=== PATIENT | male | born 1965 | race Caucasian/White ===

== ENCOUNTER 2020-07-08 22:27 | Emergency (ER) | payer MEDICAID, SELFPAY ==
--- NOTE | 2020-07-08 | XR_ITS ---
EXAMINATION: XR RIBS, RIGHT CLINICAL INFORMATION: Patient fell on right ribs. Pain. COMPARISON: Chest x-ray 10/03/2018 TECHNIQUE: Frontal view of chest 3 views of the right ribs were obtained. FINDINGS: Lungs are clear. No consolidation, pneumothorax, or pleural effusion. The cardiomediastinal silhouette and pulmonary vasculature are normal. Osseous structures are unremarkable. Ribs are intact. No fractures are identified. There are surgical clips in the upper abdomen IMPRESSION: No acute change of chest or right ribs.
[2020-07-08 22:33] VITALS: BP 153/81; PULSE 92; RESP 18; TEMP 37; O2SAT 95; BMI 38.2
--- NOTE | 2020-07-09 | CT_ITS ---
EXAMINATION: CT CHEST WITH CONTRAST CLINICAL INFORMATION: Right-sided pain. Trauma. COMPARISON: Radiographs from 07/08/2020. TECHNIQUE: Multidetector volumetric CT imaging of the chest was obtained after the administration of 85 mL of Omnipaque 350 intravenous contrast without immediate adverse reactions. Axial MIP volume rendering provided. Sagittal and coronal reformatted images were obtained. This CT examination was performed using dose optimization techniques as appropriate, variously including the following: *Automated exposure control *Adjustment of mA and/or kV according to patient size (this includes techniques or standardized protocols for targeted exams where dose is matched to indication/reason for exam; i.e. extremities or head) *Use of iterative reconstruction technique DLP: 1144 mGy-cm FINDINGS: LUNGS: The central airways are patent. Mild bronchial wall thickening noted. Minimal patchy opacities are seen at the lung bases. No pleural effusion or pneumothorax. No suspicious pulmonary nodules. MEDIASTINUM: Normal heart size. No pericardial effusion. No mediastinal lymphadenopathy. The thyroid gland is unremarkable. AXILLA: No lymphadenopathy. UPPER ABDOMEN: Manny-en-Y gastric bypass. OSSEOUS STRUCTURES: No acute or suspicious osseous abnormality. The ribs are intact. The sternum is intact. Vertebral body height and alignment is maintained. IMPRESSION: 1. No acute traumatic findings of the chest. 2. Bronchial wall thickening with patchy basilar opacities could be infectious or inflammatory.
--- NOTE | 2020-07-09 | CT_ITS ---
EXAMINATION: CT ABDOMEN AND PELVIS WITH CONTRAST CLINICAL INFORMATION: Right-sided pain. Trauma. COMPARISON: None TECHNIQUE: Multidetector volumetric images were obtained from the superior aspect of the liver through the pubic symphysis following administration 85 mL of Omnipaque 350 intravenous contrast. Sagittal and coronal reformatted images were obtained on the technologist's workstation. Oral contrast: No This CT examination was performed using dose optimization techniques as appropriate, variously including the following: *Automated exposure control *Adjustment of mA and/or kV according to patient size (this includes techniques or standardized protocols for targeted exams where dose is matched to indication/reason for exam; i.e. extremities or head) *Use of iterative reconstruction technique DLP: 1144 mGy-cm FINDINGS: LUNG BASES: The visualized lung bases are unremarkable. LIVER, GALLBLADDER, AND BILIARY TREE: The liver is normal in size, shape, and attenuation. No focal hepatic lesion. Mild intrahepatic and extrahepatic biliary ductal dilatation is present. Stones are seen in the gallbladder neck. No gallbladder wall thickening or pericholecystic fluid. PANCREAS: Fatty atrophy of the pancreatic parenchyma. No focal abnormality. SPLEEN: Unremarkable. ADRENAL GLANDS: Unremarkable. KIDNEYS AND URETERS: The kidneys are normal in size, shape, and attenuation. No hydronephrosis, hydroureter, or calculi seen. No perinephric stranding. BLADDER: Unremarkable. GASTROINTESTINAL TRACT: Status post Manny-en-Y gastric bypass. No obstruction. No dilated loops of bowel. Normal appendix. Fecalization of the distal ileum suggesting slow transit. No colonic wall thickening or inflammatory change. No free air. No free fluid. ABDOMINAL WALL: Fat-containing bilateral inguinal hernias. LYMPH NODES: Normal. VASCULAR: Normal caliber aorta with mild atherosclerotic calcification PELVIC VISCERA: The prostate and seminal vesicles are unremarkable. OSSEOUS STRUCTURES: No acute or suspicious osseous abnormality. Mild degenerative changes of the spine. IMPRESSION: Mild intrahepatic and extrahepatic biliary ductal dilatation, this appears chronic. Cholelithiasis. No acute traumatic findings.
--- NOTE | 2020-07-09 | ECG_ITS ---
Test Reason : FALL Blood Pressure : / mmHG Vent. Rate : 068 BPM Atrial Rate : 068 BPM P-R Int : 148 ms QRS Dur : 080 ms QT Int : 424 ms P-R-T Axes : 044 078 045 degrees QTc Int : 450 ms Normal sinus rhythm Normal ECG When compared with ECG of 03-JUN-2018 19:14, No significant change was found Referred By: Luan Gross Electronically Signed By:EVE MIRANDA MD
[2020-07-09 01:30] VITALS: BP 154/84; PULSE 80; RESP 24; O2SAT 96
--- NOTE | 2020-07-09 01:45 | ED.EXTPRO ---
HPI - Extremity Problem General Chief complaint: Extremity Injury, Upper Stated complaint: ABD INJ Time Seen by Provider: 07/09/20 01:28 Mode of arrival: ambulatory History of Present Illness HPI Narrative: patient right-sided chest wall pain. Patient states earlier today was working on a car and fell onto the right side. But some heating pad however has not been feeling better. Pain with palpation as well as deep breathing. Denies fevers or chills no recent illness. No syncope Onset (ago): hour(s) ( 12 hours) Location: right Severity scale (1-10): 7 Radiation: none Relieving factors: nothing Related Data Previous Rx's Medication Instructions Recorded tramadol 50 mg PO BID PRN #14 tab 07/09/20 Allergies Allergy/AdvReac Type Severity Reaction Status Date / Time ruvalcaba Allergy Severe WHEEZING Verified 07/09/20 02:21 AND THROAT SWELLING apple [Apple] Allergy Unknown UNKNOWN Verified 07/09/20 02:21 carrot [CARROT] Allergy Unknown ITCHING TO Verified 07/09/20 02:21 THROAT. peach [PEACH] Allergy Unknown UNKNOWN Verified 07/09/20 02:21 pear [Pear] Allergy Unknown UNKNOWN Verified 07/09/20 02:21 plum [PLUM] Allergy Unknown UNKNOWN Verified 07/09/20 02:21 sertraline Allergy Unknown Unknown Uncoded 07/09/20 02:21 Review of Systems Review of Systems: Constitutional : No Weight loss, No Fever, No Chills, No Night Sweats, No Fatigue, No Malaise ENT/Mouth : No Hearing loss, No Ear Pain, No Nasal Congestion, No Sinus Pain, No Hoarseness, No sore throat, No Rhinorrhea, No Swallowing Difficulty Eyes: No Eye Pain, No Swelling, No Redness, No Foreign Body, No Discharge, No Vision Changes Cardiovascular : right-sided Chest Pain, No SOB, No Dyspnea on Exertion, No Orthopnea, No Edema, No Palpitations Respiratory : No Cough, No Sputum, No Wheezing, No Smoke Exposure, No Dyspnea Gastrointestinal : No Nausea, No Vomiting, No Diarrhea, No Constipation, right upper abdominal Pain, No Hematochezia, No Melena Genitourinary : no irregular bleeding, No Dysuria, No Urinary Frequency, No Hematuria, No Urinary Incontinence, No Urgency, No Flank Pain, No Urinary Flow Changes, No Hesitancy Musculoskeletal : No joint pain, No Myalgias, No Joint Swelling Skin : No Skin Lesions, No rash Neuro : No Weakness, No Numbness, No Paresthesias, No Loss of Consciousness, No Dizziness, No Headache Psych : No Anxiety/Panic, No Depression, No SI/HI/AH/VH, No Social Issues, Heme/Lymph: No Bruising, No Bleeding,No Lymphadenopathy Endocrine : No Polyuria, No Polydipsia, No Temperature Intolerance [facility] Past Medical History Medical History (Updated 07/09/20 @ 04:34 by Luan Gross DO) Asthma Patient denies medical problems Surgical History (Updated 07/09/20 @ 04:27 by Luan Gross DO) No pertinent past surgical history Social History Social History Smoking Status: Never smoker Use of substances other than those prescribed or required for medical reasons: No Advance Directives: No Advance Directives Information Provided: No Physical Exam Vital Signs and I&O and Narrative: Vital Signs and I&O: Vital Signs Temp 98.6 F 07/08/20 22:33 Pulse 60 07/09/20 04:00 Resp 16 07/09/20 04:00 BP 141/77 H 07/09/20 04:00 Pulse Ox 95 07/09/20 04:00 Intake & Output 07/08/20 07/08/20 07/09/20 06:59 18:59 06:59 Intake Total 1000 / 1000 Balance 1000 / 1000 Weight 104.326 kg Intake: Intake, IV Amoun t 1000 / 1000 0.9 % Sodium C hloride 1,000 ml 1000 / 1000 @ 999 mls/hr I VCONT .Q1H1M [facility] Rx#:[id number] Body Mass Index 38.2 vital signs reviewed pulse ox interpreted by me 97% room air normal Appearance: Alert. Oriented X3. No acute distress. Eyes: Pupils equal, round and reactive to light. ENT: Pharynx normal. Neck: Normal inspection. Neck supple. No lymph nodes noted. No crepitus CVS: Normal heart rate and rhythm. Pulses normal. Normal S1 and S2. right-sided chest wall tenderness without ecchymosis Respiratory: No respiratory distress. Breath sounds normal. No Wheezing. No rales Abdomen: Soft and nontender. No rigidity. No distention. good BS x4. right-sided upper abdominal wall tenderness without ecchymosis Skin: Skin warm and dry. Normal skin color. Normal skin turgor. Extremities: No lower extremity edema. Neurovascular intact to all extremities. No Lacerations. No Rash Neuro: Oriented X 3. No motor deficit. No sensory deficit. Moving all extermities. No slurred speech. MDM - Extremity (Nontraumatic) MDM Narrative Medical decision making narrative: 54-year-old male status post trauma to right side negative CT scan of chest and abdomen that does not show any intra peritoneal bleeding or fractures. Feeling better with pain medications will send home with discharge instructions to follow-up Lab Data Result diagrams: 07/09/20 02:16 07/09/20 02:16 Labs: Lab Results 07/09/20 07/09/20 07/09/20 Range/Units 02:16 02:16 02:16 WBC 10.8 (4.8-10.8) X10*3/uL RBC 4.75 (4.60-5.80) X10*6/uL Hgb 13.9 L (14.0-18.0) g/dl Hct 41.9 L (42-52) % MCV 88.2 (80-98) fL MCH 29.3 (27.0-33.0) pg MCHC 33.2 (31.0-36.0) g/dl RDW 13.4 (11.0-16.0) % Plt Count 172 (160-400) X10*3/uL MPV 11.1 (9.4-12.4) fL Immature Gran % (Auto) 0.3 (0.0-0.4) % Neut % (Auto) 56.2 (45-73) % Lymph % (Auto) 25.9 (20-40) % [place] % (Auto) 9.4 (2-11) % Eos % (Auto) 7.3 H (0-4) % Baso % (Auto) 0.9 (0-2) % Lymph # (Auto) 2.8 (1.2-4.9) X10*3/uL [place] # (Auto) 1.0 (0.1-1.2) X10*3/uL Eos # (Auto) 0.8 H (0.0-0.4) X10*3/uL Baso # (Auto) 0.1 (0.0-0.2) X10*3/uL Abs Immat Gran (auto) 0.03 (0.00-0.03) X10*3/uL Absolute Neuts (auto) 6.1 (2.0-8.3) X10*3/uL Absolute Nucleated RBC 0.000 (0.0-0.012) X10*3/uL Nucleated RBC % (auto) 0.0 (0.0-0.2) /100WBC Sodium 140 (135-145) mmol/L Potassium 3.8 (3.3-5.1) mmol/l Chloride 102 (96-108) mmol/L Carbon Dioxide 29 (22-29) mmol/L Anion Gap 13 (12-20) BUN 12 (9-16) mg/dL Creatinine 0.99 (0.5-1.4) mg/dL Estim Creat Clear Calc 95.9 Estimated GFR > 60 Random Glucose 125 H (60-115) mg/dL Calcium 9.1 (8.4-10.2) mg/dL Total Bilirubin 0.4 (0.0-1.0) mg/dL Direct Bilirubin 0.2 (0.0-0.5) mg/dL AST 21 (5-37) U/L ALT 18 (0-40) U/L Alkaline Phosphatase 121 H (39-117) U/L Troponin I High Sens 9.9 (<3.5-35.0) ng/L Total Protein 7.2 (6.5-8.0) g/dL Albumin 4.6 (3.5-5.0) g/dL Lipase 10 (8-78) U/L ECG Data Attestation EKG: I personally reviewed and interpreted this ECG as follows: Interpretation: normal sinus rhythm. 68 beats per minute. normal axis. No ST-T changes Discharge Plan Discharge Clinical Impression: Contusion Qualifiers: Encounter type: initial encounter Contusion area: thoracic wall Front or back of thoracic wall: front Thoracic wall location detail: right Qualified Code(s): S20.211A - Contusion of right front wall of thorax, initial encounter Abdominal wall contusion Qualifiers: Encounter type: initial encounter Qualified Code(s): S30.1XXA - Contusion of abdominal wall, initial encounter Patient Disposition: Home, Self-Care Instructions: Contusion in Adults (ED) Additional Instructions: Thank you for visiting the emergency department today. If your symptoms worsen or do not resolve completely please return to the emergency department immediately or call 911. if he have any questions please call your primary care physician Prescriptions: New tramadol 50 mg tablet 50 mg PO BID PRN (Reason: pain) Qty: 14 RF: 0 Interventions: ED Discharge Assessment Last Done: 07/09/20 04:59 Discharge Date/Time: 07/09/20 05:07
[2020-07-09 02:00] VITALS: BP 123/61; PULSE 68; RESP 16; O2SAT 97
[2020-07-09 02:21] LABS: MANUAL DIFF FLAG NO
[2020-07-09 02:22] LABS: Basophils Absolute Auto 0.1 X10*3/uL (0.0-0.2); Basophils Percent Auto 0.9 % (0-2); Eosinophils Absolute Auto 0.8 X10*3/uL (0.0-0.4); Eosinophils Percent Auto 7.3 % (0-4); Hematocrit 41.9 % (42-52); Hemoglobin 13.9 g/dl (14.0-18.0); Imm Gran Abs Auto 0.03 X10*3/uL (0.00-0.03); Imm Gran Pct Auto 0.3 % (0.0-0.4); Lymphocytes Absolute Auto 2.8 X10*3/uL (1.2-4.9); Lymphocytes Percent Auto 25.9 % (20-40); Mean Corpuscular HGB Conc 33.2 g/dl (31.0-36.0); Mean Corpuscular Hemoglobin 29.3 pg (27.0-33.0); Mean Corpuscular Volume 88.2 fL (80-98); Mean Platelet Volume 11.1 fL (9.4-12.4); Monocytes Percent Auto 9.4 % (2-11); Neutrophils Absolute Auto 6.1 X10*3/uL (2.0-8.3); Neutrophils Percent Auto 56.2 % (45-73); Platelet Count 172 X10*3/uL (160-400); Red Blood Count 4.75 X10*6/uL (4.60-5.80); Red Cell Distribution Width 13.4 % (11.0-16.0); White Blood Count 10.8 X10*3/uL (4.8-10.8)
[2020-07-09] MEDS: 0.9 % Sodium Chloride 1,000 ML 999 ML IVCONT (02:22)
[2020-07-09] MEDS: ondansetron HCL 4 MG/2 ML VIAL IVPUSH (02:25)
[2020-07-09] MEDS: Morphine Sulfate 4 MG/ML CARTRIDGE IVPUSH (02:25)
[2020-07-09 02:45] LABS: Alanine Aminotransferase 18 U/L (0-40); Albumin Level 4.6 g/dL (3.5-5.0); Alkaline Phosphatase 121 U/L (39-117); Anion Gap 13 (12-20); Aspartate Amino Transferase 21 U/L (5-37); Bilirubin Direct 0.2 mg/dL (0.0-0.5); Bilirubin Total 0.4 mg/dL (0.0-1.0); Blood Urea Nitrogen 12 mg/dL (9-16); Calcium 9.1 mg/dL (8.4-10.2); Carbon Dioxide 29 mmol/L (22-29); Chloride 102 mmol/L (96-108); Creatinine Clr Calc Pharmacy 95.9; Estimated Glomerular Filt Rate > 60; Glucose Random 125 mg/dL (60-115); Lipase 10 U/L (8-78); Potassium 3.8 mmol/l (3.3-5.1); Sodium 140 mmol/L (135-145); Total Protein 7.2 g/dL (6.5-8.0)
[2020-07-09 02:49] LABS: Troponin-I High Sensitivity 9.9 ng/L (<3.5-35.0)
--- NOTE | 2020-07-09 03:23 | PC.NURSE ---
Patient to CT scan ATT, reports moderate pain relief after Morphine. Patient is alert and oriented, speaking in full sentences. Skin is PWD. RUQ/R ribs tender to touch.
[2020-07-09] MEDS: iohexoL 350 MG/ML 100 ML INFUS..BTL 85 ML IV (03:38)
[2020-07-09 04:00] VITALS: BP 141/77; PULSE 60; RESP 16; O2SAT 95
== END 2020-07-09 05:07 | disposition home or self-care (01) ==
PROVIDERS: Emergency Provider Emergency Medicine; PCP Family Medicine
DX: S20.211A Contusion of right front wall of thorax, initial encounter (principal); S30.1XXA Contusion of abdominal wall, initial encounter; R07.89 Other chest pain; W01.0XXA Fall on same level from slipping, tripping and stumbling without subsequent striking against object, initial encounter; Y93.9 Activity, unspecified; Y92.009 Unspecified place in unspecified non-institutional (private) residence as the place of occurrence of the external cause
CPT/HCPCS: 36415; 71100; 71260; 74177; 80048; 80076; 83690; 84484; 85025; 93005; 96361; 96374; 96375; 99284; J2270; J2405

== ENCOUNTER 2020-07-27 22:40 | Inpatient (IN) | payer MEDICAID, SELFPAY ==
[2020-07-27 23:09] VITALS: BP 132/79; PULSE 124; RESP 19; TEMP 38.4; BMI 38.2
--- NOTE | 2020-07-27 23:10 | ED.URI ---
HPI - URI/Sore Throat General Chief Complaint: General Medical Stated Complaint: SOB/ASTHMA Time Seen by Provider: 07/27/20 23:10 Source: patient, EMS and neonatal critical care nurse Mode of arrival: EMS Limitations: no limitations History of Present Illness MD elicited complaint: fever, cough and rhinorrhea Pertinent past history: asthma Onset (ago): day(s) (2) Consistency: constant Severity: moderate Able to tolerate fluids by mouth: Yes Exacerbating factors: nothing Relieving factors: nothing Associated symptoms: fever, chills, myalgias, rhinorrhea, cough, shortness of breath and nausea Treatments prior to arrival: none Related Data Home Medications Medication Instructions Recorded Confirmed No Known Home Meds 07/28/20 07/28/20 Allergies Allergy/AdvReac Type Severity Reaction Status Date / Time ruvalcaba Allergy Severe WHEEZING Verified 07/09/20 02:21 AND THROAT SWELLING apple [Apple] Allergy Unknown UNKNOWN Verified 07/09/20 02:21 carrot [CARROT] Allergy Unknown ITCHING TO Verified 07/09/20 02:21 THROAT. peach [PEACH] Allergy Unknown UNKNOWN Verified 07/09/20 02:21 pear [Pear] Allergy Unknown UNKNOWN Verified 07/09/20 02:21 plum [PLUM] Allergy Unknown UNKNOWN Verified 07/09/20 02:21 sertraline Allergy Unknown Unknown Uncoded 07/09/20 02:21 Review of Systems Review of Systems: Constitutional : positive Fever, positive Chills, positive fatigue, positive Malaise ENT/Mouth : no sore throat, positive runny nose Eyes: No Discharge Cardiovascular : No Chest Pain, pos SOB Respiratory : pos Cough, No Sputum Gastrointestinal : No Nausea, No Vomiting, No Diarrhea Genitourinary : No Dysuria, No Urinary Frequency Musculoskeletal : positive Myalgia Skin : No rash Neuro : No Headache All other systems reviewed and are negative PMFSH Past Medical History Attestation statement: The following information was validated with the patient. Medical History Asthma Patient denies medical problems Surgical History No pertinent past surgical history Social History Social History (Updated 07/27/20 @ 23:30 by Juju Barragan DO) Alcohol intake: former Smoking Status: Current every day smoker Smoked in Last 30 Days: Yes Substance Use Type: Heroin Substance Use Frequency: Daily Advance Directives: No Advance Directives Information Provided: No Physical Exam Vital Signs: Vital Signs: Vital Signs Temp Pulse Resp BP Pulse Ox 07/28/20 02:00 98.8 F 93 17 117/70 94 07/28/20 00:48 99.9 F 124 H 16 99/67 93 07/28/20 00:25 116 H 111/69 07/27/20 23:47 101.4 F H 117 H 17 132/59 L 92 07/27/20 23:09 101.1 F H 124 H 19 132/79 Body Mass Index 38.2 Appearance: Alert. Oriented X3. Mild acute distress. Eyes: Pupils equal, round and reactive to light. ENT: Pharynx normal. Neck: Normal inspection. Neck supple. CVS: tachycardic heart rate and rhythm. Pulses normal. Respiratory: Mild respiratory distress. Breath sounds decreased with moderate end exp wheezes Abdomen: Soft and nontender. Skin: Skin warm and dry. Normal skin color. Normal skin turgor. Extremities: No lower extremity edema. No calf ttp Neuro: Oriented X 3. No motor deficit. No sensory deficit. Course Course Course Narrative: already given INH, steroids, IV antibiotics, COVID negative though CT scan concerning - plan is to admit for further care, patient requiring O2 at this time MDM - URI/Sore Throat MDM Narrative Medical decision making narrative: 54 yo male with hx of asthma c/o body aches and fevers x 2 days, he does snort heroin but no IVDA and I do not see any track zarate, at this time will need labs, COVID swab, CXR, albuterol/steroid/magnesium, empiric antibiotics, dispo per results and findings Lab Data Result diagrams: 07/28/20 00:43 07/28/20 00:44 Labs: Lab Results 07/28/20 07/28/20 07/28/20 Range/Units 00:43 00:43 00:43 WBC 17.6 H (4.8-10.8) X10*3/uL RBC 5.02 (4.60-5.80) X10*6/uL Hgb 14.5 (14.0-18.0) g/dl Hct 44.0 (42-52) % MCV 87.6 (80-98) fL MCH 28.9 (27.0-33.0) pg MCHC 33.0 (31.0-36.0) g/dl RDW 13.1 (11.0-16.0) % Plt Count 110 L D (160-400) X10*3/uL MPV 11.6 (9.4-12.4) fL Immature Gran % (Auto) 0.4 (0.0-0.4) % Neut % (Auto) 83.3 H (45-73) % Lymph % (Auto) 6.1 L (20-40) % [place] % (Auto) 8.7 (2-11) % Eos % (Auto) 1.1 (0-4) % Baso % (Auto) 0.4 (0-2) % Lymph # (Auto) 1.1 L (1.2-4.9) X10*3/uL [place] # (Auto) 1.5 H (0.1-1.2) X10*3/uL Eos # (Auto) 0.2 (0.0-0.4) X10*3/uL Baso # (Auto) 0.1 (0.0-0.2) X10*3/uL Abs Immat Gran (auto) 0.07 H (0.00-0.03) X10*3/uL Absolute Neuts (auto) 14.6 H (2.0-8.3) X10*3/uL Absolute Nucleated RBC 0.000 (0.0-0.012) X10*3/uL Nucleated RBC % (auto) 0.0 (0.0-0.2) /100WBC Smear Tech's Comments VERIFIED Hold Blue Top SEE NOTE Lactic Acid 3.6 H* (0.5-2.0) mmol/L Coronavirus (PCR) (Negative) 07/28/20 Range/Units 00:43 WBC (4.8-10.8) X10*3/uL RBC (4.60-5.80) X10*6/uL Hgb (14.0-18.0) g/dl Hct (42-52) % MCV (80-98) fL MCH (27.0-33.0) pg MCHC (31.0-36.0) g/dl RDW (11.0-16.0) % Plt Count (160-400) X10*3/uL MPV (9.4-12.4) fL Immature Gran % (Auto) (0.0-0.4) % Neut % (Auto) (45-73) % Lymph % (Auto) (20-40) % [place] % (Auto) (2-11) % Eos % (Auto) (0-4) % Baso % (Auto) (0-2) % Lymph # (Auto) (1.2-4.9) X10*3/uL [place] # (Auto) (0.1-1.2) X10*3/uL Eos # (Auto) (0.0-0.4) X10*3/uL Baso # (Auto) (0.0-0.2) X10*3/uL Abs Immat Gran (auto) (0.00-0.03) X10*3/uL Absolute Neuts (auto) (2.0-8.3) X10*3/uL Absolute Nucleated RBC (0.0-0.012) X10*3/uL Nucleated RBC % (auto) (0.0-0.2) /100WBC Smear Tech's Comments Hold Blue Top Lactic Acid (0.5-2.0) mmol/L Coronavirus (PCR) NEGATIVE (Negative) ECG Data Attestation: I personally reviewed and interpreted this ECG as follows: ECG interpretation date: 07/27/20 ECG interpretation time: 23:47 Interpretation: Rate: 121 Rhythm: sinus tachycardia [place]: mpr,a; Normal P waves. Normal TRUNG. Normal QRS complex. ST T wave : normal qTC: normal prior studies: no acute ischemia The study has been interpreted contemporaneously by me. . Critical Care Time Critical Care Time Critical Care Time: Yes Total Critical Care Time: 60 Attestation: INH, supplemental O2, IV antibiotics, recheck I personally attest to this time spent taking care of the patient Discharge Plan Discharge Clinical Impression: Fever, Hypoxia, Acidosis, lactic, Pneumonia Patient Disposition: Admitted As Inpatient Prescriptions: No Action No Known Home Meds RF: 0
--- NOTE | 2020-07-27 23:11 | ECG_ITS ---
Test Reason : TACHYCARDIA Blood Pressure : / mmHG Vent. Rate : 121 BPM Atrial Rate : 121 BPM P-R Int : 132 ms QRS Dur : 076 ms QT Int : 330 ms P-R-T Axes : 062 080 055 degrees QTc Int : 468 ms Sinus tachycardia Nonspecific T wave abnormality Possible Left atrial enlargement Borderline ECG When compared with ECG of 09-JUL-2020 02:15, Vent. rate has increased BY 53 BPM Referred By: Juju Barragan Electronically Signed By:EVE MIRANDA MD
[2020-07-27] MEDS: Albuterol Sulfate 90 MCG 8 GM INHALER 4 PUFF INHALE (23:43)
[2020-07-27 23:47] VITALS: BP 132/59; PULSE 117; RESP 17; TEMP 38.6; O2SAT 92
--- NOTE | 2020-07-27 23:57 | XR_ITS ---
EXAMINATION: XR CHEST CLINICAL INFORMATION: Cough and fever COMPARISON: 07/08/2020 TECHNIQUE: Frontal view of the chest was obtained. FINDINGS: Cardiac lead overlies the chest. The lungs are well expanded. There is no focal consolidation, edema, or effusion. No pneumothorax. The cardiomediastinal silhouette is within normal limits. No acute osseous abnormality. Chronic changes at the left acromioclavicular joint. XR/XR chest 1V IMPRESSION: No acute pulmonary findings.
[2020-07-28] VITALS (8 sets, daily range): BP systolic 99–162; BP diastolic 61–83; PULSE 68–124; RESP 16–22; TEMP 36.6–37.7; O2SAT 8–98; BMI 37.0
[2020-07-28] MEDS: ondansetron HCL 4 MG/2 ML VIAL IVPUSH ×2 (00:34→04:25)
[2020-07-28] MEDS: Magnesium Sulfate/H2O 2 GM/50 ML PIGGYBACK IV (00:34)
[2020-07-28] MEDS: cefTRIAXone sodium 1 GM in 0.9 % Sodium Chloride 50 ML IV ×2 (00:34→04:15)
[2020-07-28] MEDS: methylPREDNISolone Sod Succ/PF 125 MG/2 ML VIAL 60 MG IVPUSH (00:35)
[2020-07-28] MEDS: Acetaminophen 325 MG TABLET 650 MG PO (00:35)
[2020-07-28] MEDS: Azithromycin 500 MG TABLET PO (00:35)
[2020-07-28] MEDS: 0.9 % Sodium Chloride 1,000 ML 999 ML IVCONT (00:35)
[2020-07-28 01:05] LABS: Basophils Percent Auto 0.4 % (0-2); MANUAL DIFF FLAG SCAN; PLT CLUMP 1
[2020-07-28 01:06] LABS: Basophils Absolute Auto 0.1 X10*3/uL (0.0-0.2); Eosinophils Absolute Auto 0.2 X10*3/uL (0.0-0.4); Eosinophils Percent Auto 1.1 % (0-4); Hemoglobin 14.5 g/dl (14.0-18.0); Imm Gran Abs Auto 0.07 X10*3/uL (0.00-0.03); Imm Gran Pct Auto 0.4 % (0.0-0.4); Lymphocytes Absolute Auto 1.1 X10*3/uL (1.2-4.9); Lymphocytes Percent Auto 6.1 % (20-40); Mean Corpuscular Hemoglobin 28.9 pg (27.0-33.0); Mean Corpuscular Volume 87.6 fL (80-98); Mean Platelet Volume 11.6 fL (9.4-12.4); Monocytes Absolute Auto 1.5 X10*3/uL (0.1-1.2); Monocytes Percent Auto 8.7 % (2-11); Neutrophils Absolute Auto 14.6 X10*3/uL (2.0-8.3); Neutrophils Percent Auto 83.3 % (45-73); Platelet Count 110 X10*3/uL (160-400); Red Blood Count 5.02 X10*6/uL (4.60-5.80); Red Cell Distribution Width 13.1 % (11.0-16.0); SCAN SMEAR FLAG 1; White Blood Count 17.6 X10*3/uL (4.8-10.8)
--- NOTE | 2020-07-28 01:06 | CT_ITS ---
EXAMINATION: CT CHEST WITHOUT CONTRAST CLINICAL INFORMATION: Fever. Hypoxia. COMPARISON: Radiograph 07/27/2020. CT 07/09/2020. TECHNIQUE: Multidetector volumetric CT imaging of the chest was done. Axial MIP volume rendering provided. Sagittal and coronal reformatted images were obtained. This CT examination was performed using dose optimization techniques as appropriate, variously including the following: *Automated exposure control *Adjustment of mA and/or kV according to patient size (this includes techniques or standardized protocols for targeted exams where dose is matched to indication/reason for exam; i.e. extremities or head) *Use of iterative reconstruction technique DLP: 371 mGy-cm FINDINGS: LUNGS: The central airways are patent. There is bronchial wall thickening noted. Patchy areas of nodular consolidation are seen in the right middle lobe and both lower lobes. Fairly central distribution. Scattered bronchial filling defects. No pneumothorax. MEDIASTINUM: Normal heart size. No pericardial effusion. No mediastinal lymphadenopathy. PLEURA: There is no pleural effusion. No pleural mass or thickening. AXILLA: No lymphadenopathy. UPPER ABDOMEN: Evidence of gastric bypass. OSSEOUS STRUCTURES: No acute or suspicious osseous abnormality. CT/CT chest wo con IMPRESSION: Bronchial wall thickening noted. Consolidative nodular opacities are seen bilaterally. This appearance may be infectious or inflammatory.
[2020-07-28 01:22] LABS: SLIDE REVIEW VERIFIED
[2020-07-28 02:04] LABS: SARS COV2 PCR INHOUSE NEGATIVE (Negative)
[2020-07-28 02:06] LABS: Lactic Acid 3.6 mmol/L (0.5-2.0)
[2020-07-28 02:52] LABS: Alanine Aminotransferase 29 U/L (0-40); Albumin Level 4.3 g/dL (3.5-5.0); Alkaline Phosphatase 161 U/L (39-117); Anion Gap 21 (12-20); Aspartate Amino Transferase 32 U/L (5-37); Bilirubin Direct 0.3 mg/dL (0.0-0.5); Bilirubin Total 1.1 mg/dL (0.0-1.0); Blood Urea Nitrogen 11 mg/dL (9-16); Calcium 8.4 mg/dL (8.4-10.2); Carbon Dioxide 20 mmol/L (22-29); Chloride 96 mmol/L (96-108); Creatinine Clr Calc Pharmacy 113.1; Estimated Glomerular Filt Rate > 60; Glucose Random 203 mg/dL (60-115); Lactate Dehydrogenase 208 U/L (118-273); Magnesium 1.7 mg/dL (1.6-2.6); Potassium 4.3 mmol/l (3.3-5.1); Sodium 133 mmol/L (135-145); Total Protein 7.3 g/dL (6.5-8.0)
[2020-07-28 02:58] LABS: B Type Natriuretic Peptide < 10 pg/mL (<100); Troponin-I High Sensitivity 16.4 ng/L (<3.5-35.0)
[2020-07-28 02:58] LABS: Adenovirus PCR Not Detected (Not Detect.); Bordetella parapertussis PCR Not Detected (Not Detect.); Bordetella pertussis PCR Not Detected (Not Detect.); Chlamydia pneumoniae PCR Not Detected (Not Detect.); Coronavirus 229E PCR Not Detected (Not Detect.); Coronavirus HKU1 PCR Not Detected (Not Detect.); Coronavirus NL63 PCR Not Detected (Not Detect.); Coronavirus OC43 PCR Not Detected (Not Detect.); Human metapneumovirus PCR Not Detected (Not Detect.); Influenza A PCR Not Detected (Not Detect.); Influenza B PCR Not Detected (Not Detect.); Mycoplasma pneumoniae PCR Not Detected (Not Detect.); Parainfluenza 1 PCR Not Detected (Not Detect.); Parainfluenza 2 PCR Not Detected (Not Detect.); Parainfluenza 3 PCR Not Detected (Not Detect.); Parainfluenza 4 PCR Not Detected (Not Detect.); RSV PCR Not Detected (Not Detect.); SARS-CoV-2 PCR Not Detected (Not Detect.)
[2020-07-28 03:00] LABS: Reflex Lactate? Lactic Acid Added
--- NOTE | 2020-07-28 03:05 | PC.NURSE ---
Critical lactic of 3.6. Dr. Otero made aware of. Per MD, do not need to have more fluid. Pt already received 1 L of fluid, and BP stable.
[2020-07-28 03:30] LABS: Amphetamine Screen Urine Not Detected (Not Detect); Barbiturates, Urine Not Detected (Not Detect); Benzodiazepines Screen Urine Not Detected (Not Detect); Cannabinoid Screen Urine Not Detected (Not Detect); Cocaine Screen Urine POSITIVE (Not Detect); Opiate Screen Urine POSITIVE (Not Detect); Phencyclidine Screen Urine Not Detected (Not Detect)
[2020-07-28] MEDS: Lactated Ringers 1,000 ML 150 ML IVCONT ×4 (04:15→23:09)
[2020-07-28] MEDS: PHENobarbitaL sodium 130 MG/ML VIAL 244 MG IM (04:21)
[2020-07-28 05:08] LABS: ~Lactic Acid-LAB USE ONLY 2.8 mmol/L (0.5-2.0)
--- NOTE | 2020-07-28 05:31 | PM.IMHP ---
History of Present Illness Date of Service: 07/28/20 Chief Complaint: shortness of breath this is a 54-year-old male with past medical history of asthma, Hypertension,as well as alcohol abuse who presents to the hospital complaining of shortness of breath. patient reports that his symptoms started 2 days prior, he has used his inhalers with no relief. He also has wheezing, and cough that is productive of minimal white sputum. He has no fever or chills, he has no chest pain, he has no sick contacts or recent travel. He has no headache or change in vision, no abdominal pain nausea or vomiting, no diarrhea constipation. No urinary symptoms and no lower extremity pitting edema. Patient reports that he relapsed into drinking alcohol daily in the past 1 month, he drinks about 8 nebs of vodka as well as 424 oz beers daily, he also has been using heroin daily. On arrival to the ED hemodynamically stable, he has a fever of 101.1, heart rate of 124, he was noted to be satting in the mid 80s on room air, currently on nasal cannula setting 94%. Labs are significant for WBC count of 17.6, sodium of 133, lactic acid of 3.6, urine opiate screen positive, cocaine positive, COVID-[address] shows bronchial wall thickening noted, consolidative nodular opacities seen bilaterally concerning for infectious etiology patient will be admitted for further management of pneumonia past medical history: Hypertension, alcohol abuse, asthma past surgical history: denies family history: Significant for asthma, and diabetes social history: Comes from home, smokes 1 cigarettes a day, drinks alcohol daily uses heroin daily Review of Systems Review of Systems: Yes all other systems are reviewed and are negative [facility] Medical History Asthma Hypertension Patient denies medical problems Surgical History No pertinent past surgical history Social History Household Members: None Housing: Apartment Do you presently have visiting nurse or other home services: No Alcohol intake: former Smoking Status: Current every day smoker Tobacco Type: Cigarette Smoked in Last 30 Days: Yes Use of substances other than those prescribed or required for medical reasons: Yes Substance Use Type: Crack/Cocaine and Heroin Substance Use Frequency: Chronic Longstanding Last Used Substance: Just Prior to Admission Currently Displaying Signs/Symptoms of Drug Intoxication Withdrawal: Yes Have you been hit, kicked, punched, or otherwise hurt by someone within the past year? If so, by whom?: No Do you feel safe in your current relationship?: Yes Is there a partner from a previous relationship who is making you feel unsafe now?: No Are you made to feel afraid or neglected: No Advance Directives: No Advance Directives Information Provided: No Do you have thoughts of harming others: None Do you have a plan to hurt others: No Plan Recently lost weight without trying: No Meds Allergies Allergy/AdvReac Type Severity Reaction Status Date / Time ruvalcaba Allergy Severe WHEEZING Verified 07/09/20 02:21 AND THROAT SWELLING apple [Apple] Allergy Unknown UNKNOWN Verified 07/09/20 02:21 carrot [CARROT] Allergy Unknown ITCHING TO Verified 07/09/20 02:21 THROAT. peach [PEACH] Allergy Unknown UNKNOWN Verified 07/09/20 02:21 pear [Pear] Allergy Unknown UNKNOWN Verified 07/09/20 02:21 plum [PLUM] Allergy Unknown UNKNOWN Verified 07/09/20 02:21 sertraline Allergy Unknown Unknown Uncoded 07/09/20 02:21 Home Medications Medication Instructions Recorded Confirmed Type No Known Home Meds 07/28/20 07/28/20 History Physical Exam Vital Signs and Narrative: Vital Signs: Last Vital Signs Temp 98.1 F 07/28/20 04:00 Pulse 69 07/28/20 04:00 Resp 18 07/28/20 04:00 BP 111/78 07/28/20 04:00 Pulse Ox 98 07/28/20 04:00 Body Mass Index 38.2 Const: Other: Appears ill, no apparent distress General: cooperative and no acute distress Orientation/consciousness: patient oriented x3 Eyes: General: appearance normal, both eyes and all related structures Pupils: Equal, round and reactive pupils present Resp: Effort & Inspection: normal respiratory effort and able to speak in complete sentences Auscultation: rhonchi Cardio: Rate: regular rate Rhythm: regular rhythm GI: Palpation (GI): Soft to palpation Auscultation: normal bowel sounds Skin: General skin exam: no rashes or lesions noted Neuro: General: patient oriented x3 Cranial nerves: Yes Equal, round and reactive pupils present Cognition (Neuro): normal cognition Extrem: General: Yes normal to inspection and Yes no pedal edema Results Labs Labs: Laboratory Tests 07/28/20 07/28/20 07/28/20 00:43 00:43 00:43 WBC 17.6 H RBC 5.02 Hgb 14.5 Hct 44.0 MCV 87.6 MCH 28.9 MCHC 33.0 RDW 13.1 Plt Count 110 L D MPV 11.6 Immature Gran % (Auto) 0.4 Neut % (Auto) 83.3 H Lymph % (Auto) 6.1 L Coffee % (Auto) 8.7 Eos % (Auto) 1.1 Baso % (Auto) 0.4 Lymph # (Auto) 1.1 L Coffee # (Auto) 1.5 H Eos # (Auto) 0.2 Baso # (Auto) 0.1 Abs Immat Gran (auto) 0.07 H Absolute Neuts (auto) 14.6 H Absolute Nucleated RBC 0.000 Nucleated RBC % (auto) 0.0 Smear Tech's Comments VERIFIED Hold Blue Top SEE NOTE Sodium Potassium Chloride Carbon Dioxide Anion Gap BUN Creatinine Estim Creat Clear Calc Estimated GFR Random Glucose Lactic Acid 3.6 H* Lactic Acid Fup @ 2Hr Calcium Magnesium Total Bilirubin Direct Bilirubin AST ALT Alkaline Phosphatase Lactate Dehydrogenase Troponin I High Sens B-Natriuretic Peptide Total Protein Albumin Urine Opiates Screen Ur Barbiturates Screen Ur Phencyclidine Scrn Ur Amphetamines Screen U Benzodiazepines Scrn Urine Cocaine Screen U Marijuana (THC) Screen Coronavirus (PCR) 07/28/20 07/28/20 07/28/20 00:43 00:43 00:44 WBC RBC Hgb Hct MCV MCH MCHC RDW Plt Count MPV Immature Gran % (Auto) Neut % (Auto) Lymph % (Auto) Coffee % (Auto) Eos % (Auto) Baso % (Auto) Lymph # (Auto) Coffee # (Auto) Eos # (Auto) Baso # (Auto) Abs Immat Gran (auto) Absolute Neuts (auto) Absolute Nucleated RBC Nucleated RBC % (auto) Smear Tech's Comments Hold Blue Top Sodium 133 L Potassium 4.3 Chloride 96 Carbon Dioxide 20 L Anion Gap 21 H BUN 11 Creatinine 0.84 Estim Creat Clear Calc 113.1 Estimated GFR > 60 Random Glucose 203 H D Lactic Acid Lactic Acid Fup @ 2Hr Calcium 8.4 Magnesium 1.7 Total Bilirubin 1.1 H Direct Bilirubin 0.3 AST 32 D ALT 29 Alkaline Phosphatase 161 H D Lactate Dehydrogenase 208 Troponin I High Sens 16.4 D B-Natriuretic Peptide < 10 Total Protein 7.3 Albumin 4.3 Urine Opiates Screen Ur Barbiturates Screen Ur Phencyclidine Scrn Ur Amphetamines Screen U Benzodiazepines Scrn Urine Cocaine Screen U Marijuana (THC) Screen Coronavirus (PCR) NEGATIVE 07/28/20 07/28/20 02:51 04:29 WBC RBC Hgb Hct MCV MCH MCHC RDW Plt Count MPV Immature Gran % (Auto) Neut % (Auto) Lymph % (Auto) Coffee % (Auto) Eos % (Auto) Baso % (Auto) Lymph # (Auto) Coffee # (Auto) Eos # (Auto) Baso # (Auto) Abs Immat Gran (auto) Absolute Neuts (auto) Absolute Nucleated RBC Nucleated RBC % (auto) Smear Tech's Comments Hold Blue Top Sodium Potassium Chloride Carbon Dioxide Anion Gap BUN Creatinine Estim Creat Clear Calc Estimated GFR Random Glucose Lactic Acid Lactic Acid Fup @ 2Hr 2.8 H* Calcium Magnesium Total Bilirubin Direct Bilirubin AST ALT Alkaline Phosphatase Lactate Dehydrogenase Troponin I High Sens B-Natriuretic Peptide Total Protein Albumin Urine Opiates Screen POSITIVE H Ur Barbiturates Screen Not Detected Ur Phencyclidine Scrn Not Detected Ur Amphetamines Screen Not Detected U Benzodiazepines Scrn Not Detected Urine Cocaine Screen POSITIVE H U Marijuana (THC) Screen Not Detected Coronavirus (PCR) Imaging CT scan - chest: Radiologist's impression: IMPRESSION: Bronchial wall thickening noted. Consolidative nodular opacities are seen bilaterally. This appearance may be infectious or inflammatory. Assessment and Plan (1) Hypertension: Status: Inactive (2) Sepsis: Status: Acute (3) Fever: Qualifiers: Fever type: unspecified Qualified Code(s): R50.9 - Fever, unspecified Status: Acute (4) Hypoxia: Status: Acute (5) Acidosis, lactic: Status: Acute (6) Pneumonia: Qualifiers: Laterality: bilateral Lung location: unspecified part of lung Pneumonia type: due to unspecified organism Qualified Code(s): J18.9 - Pneumonia, unspecified organism Status: Acute (7) Alcohol abuse: Status: Acute (8) Polysubstance abuse: Status: Acute this is a 54-year-old male who presents to the hospital with shortness of breath found to have pneumonia. # sepsis - most likely secondary to community-acquired pneumonia - tachycardia, tachypnea, febrile, lactic acidosis - no hypotension Plan: - IV antibiotics with ceftriaxone and azithromycin - will obtain full respiratory panel including strep and Legionella antigens - will follow blood cultures obtained in the ED # Community-acquired pneumonia - COVID-19 negative, he has bilateral infiltrates - hypoxic, tachycardia, tachypnea, with lactic acidosis plan: - Continue ceftriaxone and azithromycin - O2 supplement as required - follow blood cultures # acute hypoxic respiratory failure - due to the above - O2 supplement - monitor respiratory status - pending respiratory panel # alcohol abuse - potential for withdrawal - start him on phenobarb protocol - thiamine and folic acid supplement # polysubstance abuse - start on clonidine, hydroxyzine for potential to draw of opiate - can start on Suboxone if necessary # lactic acidosis - secondary to acute sepsis/hypoxia - IV fluids - trend DVT prophylaxis: Lovenox
[2020-07-28] MEDS: Enoxaparin Sodium 40 MG/0.4 ML SYRINGE SUBCUT (05:56)
[2020-07-28 06:33] LABS: Reflex Lactate? 2 Y
[2020-07-28 08:10] LABS: ~Lactic Acid-LAB USE ONLY 3.1 mmol/L (0.5-2.0)
[2020-07-28] MEDS: 0.9 % Sodium Chloride Flush 3 ML SYRINGE IVFLUSH ×2 (08:36→17:19)
[2020-07-28] MEDS: PHENobarbitaL sodium 65 MG/ML VIAL 183 MG IM ×2 (08:36→11:43)
[2020-07-28] MEDS: Folic Acid 1 MG TABLET PO (08:36)
--- NOTE | 2020-07-28 09:41 | P.CDIC_ITS ---
CDI Concurrent Query Service Date: 07/29/20 Documentation Clarification: Please clarify if you are treating a proba ble/suspected/likely or confirmed: Sepsis due to pneumonia Severe sepsis due to pneumonia with organ failure (respiratory) Please specify if known Provider Response: Other Other Diagnosis: Sepsis due to pneumonia, PLEASE DO NOT DELETE/MODIFY EXISTING CONTENT Additional information is needed in order to code to the highest accuracy and appropriate Severity of Illness (SOI). Please clarify the information noted below in your progress notes and discharge summary. Risk Factors/Clinical Indicators/Treatments WBC 17.6 LA 3.6 HR 124 Temp 101.4 RR 19 pulse ox 94% Lactic acidosis secondary to acute sepsis/hypoxia. Acute hypoxic respiratory failure/pneumonia. chills, fatigue, worsening shortness of breath, myalgias. Covid negative Azithromycin, Ceftraxone, IV fluids CDS: Tonie Burnham CCS, [facility] Contact Number: [phone] Please Review the information above and exercise your independent professional judgment in responding to the query. If you concur, pleas document in the PROGRESS NOTES and DISCHARGE SUMMARY. If you do not agree with the query, please document in the query above. THIS QUERY IS PART OF THE PERMANENT MEDICAL RECORD
[2020-07-28 12:02] LABS: Rhino/Enterovirus PCR Detected (Not Detect.)
--- NOTE | 2020-07-28 13:07 | MHC.CM.PN ---
CM met with patient and educational interpreter at the bedside who reports he lives alone and is independent. Patient does not have a HCP and declines filling one out today after educated. Discussed discharge plan, home no services. Patient will need a taxi voucher for transportation. CM will continue to follow patient for discharge needs.
[2020-07-28] MEDS: PHENobarbitaL 30 MG TABLET 45 MG PO (20:45)
[2020-07-28] MEDS: Albuterol Sulfate 90 MCG 8 GM INHALER 2 PUFF INHALE (21:31)
[2020-07-29] MEDS: cefTRIAXone sodium 1 GM in 0.9 % Sodium Chloride 50 ML IV (03:00)
[2020-07-29] MEDS: Enoxaparin Sodium 40 MG/0.4 ML SYRINGE SUBCUT (03:01)
[2020-07-29] MEDS: Azithromycin 500 MG in 0.9 % Sodium Chloride 250 ML 125 MG IV (03:07)
[2020-07-29 03:58] VITALS: BP 136/76; PULSE 68; RESP 20; TEMP 37.1; O2SAT 98
[2020-07-29 05:33] LABS: MANUAL DIFF FLAG NO
[2020-07-29 06:00] VITALS: BMI 37.9
[2020-07-29 06:17] LABS: Basophils Percent Auto 0.2 % (0-2); Eosinophils Absolute Auto 0.1 X10*3/uL (0.0-0.4); Eosinophils Percent Auto 0.4 % (0-4); Hematocrit 39.9 % (42-52); Hemoglobin 12.9 g/dl (14.0-18.0); Imm Gran Abs Auto 0.06 X10*3/uL (0.00-0.03); Imm Gran Pct Auto 0.4 % (0.0-0.4); Lymphocytes Percent Auto 14.5 % (20-40); Mean Corpuscular HGB Conc 32.3 g/dl (31.0-36.0); Mean Corpuscular Hemoglobin 28.9 pg (27.0-33.0); Mean Corpuscular Volume 89.3 fL (80-98); Mean Platelet Volume 12.6 fL (9.4-12.4); Monocytes Absolute Auto 0.8 X10*3/uL (0.1-1.2); Monocytes Percent Auto 6.1 % (2-11); Neutrophils Absolute Auto 10.8 X10*3/uL (2.0-8.3); Neutrophils Percent Auto 78.4 % (45-73); Platelet Count 108 X10*3/uL (160-400); Red Blood Count 4.47 X10*6/uL (4.60-5.80); Red Cell Distribution Width 12.7 % (11.0-16.0); White Blood Count 13.7 X10*3/uL (4.8-10.8)
[2020-07-29 06:27] LABS: Anion Gap 15 (12-20); Blood Urea Nitrogen 18 mg/dL (9-16); Calcium 7.7 mg/dL (8.4-10.2); Carbon Dioxide 24 mmol/L (22-29); Chloride 102 mmol/L (96-108); Creatinine Clr Calc Pharmacy 137.2; Estimated Glomerular Filt Rate > 60; Glucose Random 113 mg/dL (60-115); Potassium 4.2 mmol/l (3.3-5.1); Sodium 137 mmol/L (135-145)
[2020-07-29 08:00] VITALS: BP 134/65; PULSE 79; RESP 18; TEMP 36.6; O2SAT 97
[2020-07-29] MEDS: PHENobarbitaL 30 MG TABLET 45 MG PO (08:07)
[2020-07-29] MEDS: Folic Acid 1 MG TABLET PO (08:07)
[2020-07-29] MEDS: Thiamine HCL 200 MG/2 ML VIAL 100 MG IM (08:08)
[2020-07-29] MEDS: Lactated Ringers 1,000 ML 150 ML IVCONT (08:11)
--- NOTE | 2020-07-29 11:39 | PM.DS ---
DS: Providers Provider Date of admission: 07/28/20 02:34 Primary care physician: [facility] DS: Diagnosis Discharge Diagnosis (1) Hypertension: Status: Inactive (2) Sepsis: Status: Acute (3) Fever: Status: Acute (4) Hypoxia: Status: Acute (5) Acidosis, lactic: Status: Acute (6) Pneumonia: Status: Acute (7) Alcohol abuse: Status: Acute (8) Polysubstance abuse: Status: Acute DS: Summary Hospital Course Hospital Course: HPI 54-year-old male with past medical history of asthma, Hypertension,as well as alcohol abuse who presents to the hospital complaining of shortness of breath. patient reports that his symptoms started 2 days prior, he has used his inhalers with no relief. He also has wheezing, and cough that is productive of minimal white sputum. He has no fever or chills, he has no chest pain, he has no sick contacts or recent travel. He has no headache or change in vision, no abdominal pain nausea or vomiting, no diarrhea constipation. No urinary symptoms and no lower extremity pitting edema. Patient reports that he relapsed into drinking alcohol daily in the past 1 month, he drinks about 8 nebs of vodka as well as 424 oz beers daily, he also has been using heroin daily. On arrival to the ED hemodynamically stable, he has a fever of 101.1, heart rate of 124, he was noted to be satting in the mid 80s on room air, currently on nasal cannula setting 94%. Labs are significant for WBC count of 17.6, sodium of 133, lactic acid of 3.6, urine opiate screen positive, cocaine positive, COVID-[address] shows bronchial wall thickening noted, consolidative nodular opacities seen bilaterally concerning for infectious etiology Hospital course: Patient was admitted for management with of sepsis due to pneumonia and treated with IV ceftriaxone and Azithromycin and has improved significantly. WBC has come down. He no longer has fever. Oxygen saturation is normal at 97% on room air. He was on Phenobarbital to prevent alcohol withdrawal and has not shown any signs of withdrawal. He advised also against iliciy drug use. He will be discharged with oral Ceftin and Azithromycin to complete treatment of pnemonia and is urge to follow up with PCP within a week Status at Discharge Functional status at discharge: independent ambulation Overall status at discharge: patient is progressing back to baseline Time Spent with Patient Time attestation: Total time spent providing and/or coordinating discharge services: Time spent: Greater than 30 minutes Physical Exam Vital Signs: Vital Signs: Vital Signs Temp Pulse Resp BP Pulse Ox 07/29/20 08:00 97.9 F 79 18 134/65 97 07/29/20 03:58 98.7 F 68 20 136/76 98 07/28/20 20:00 97.9 F 79 22 H 140/75 H 95 07/28/20 15:16 98.2 F 79 18 141/83 H 98 07/28/20 11:46 98.3 F 68 18 162/83 H 95 Body Mass Index 37.9 General: AO X 3, no acute distress but ill appearing Resp: normal lung expansion, no wheezes, mild rhonchi CVS: S1,S2,RRR GI: +BS, NT, no distention Skin: No rash Neuro: motor grossly intact Psych: appropriate affect DS: Data Data Completed and Pending Labs on day of discharge: Labs from last 24 hours 07/29/20 07/29/20 07/28/20 04:52 04:52 02:51 WBC 13.7 H RBC 4.47 L Hgb 12.9 L Hct 39.9 L MCV 89.3 MCH 28.9 MCHC 32.3 RDW 12.7 Plt Count 108 L MPV 12.6 H Immature Gran % (Auto) 0.4 Neut % (Auto) 78.4 H Lymph % (Auto) 14.5 L [place] % (Auto) 6.1 Eos % (Auto) 0.4 Baso % (Auto) 0.2 Lymph # (Auto) 2.0 [place] # (Auto) 0.8 Eos # (Auto) 0.1 Baso # (Auto) 0.0 Abs Immat Gran (auto) 0.06 H Absolute Neuts (auto) 10.8 H Absolute Nucleated RBC 0.000 Nucleated RBC % (auto) 0.0 Sodium 137 Potassium 4.2 Chloride 102 Carbon Dioxide 24 Anion Gap 15 BUN 18 H D Creatinine 0.68 Estim Creat Clear Calc 137.2 Estimated GFR > 60 Random Glucose 113 D Calcium 7.7 L Respiratory Panel Duff See Note Adenovirus (Rapid PCR) Not Detected B.pert (TEM-PCR) Not Detected B.parapertussis DNA PCR Not Detected C. pneumoniae DNA (PCR) Not Detected Coronavirus OC43 (PCR) Not Detected Coronavirus HKU1 (PCR) Not Detected Coronavirus 229E (PCR) Not Detected Coronavirus NL63 (PCR) Not Detected Human Metapneumovir PCR Not Detected Influenza A (RT-PCR) Not Detected Influenza B (RT-PCR) Not Detected M. pneumoniae (PCR) Not Detected Parainfluenza 1 (PCR) Not Detected Parainfluenza 2 (PCR) Not Detected Parainfluenza 3 (PCR) Not Detected Parainfluenza 4 (PCR) Not Detected RSV (PCR) Not Detected Entero/Rhino (PCR) Detected A SARS-CoV-2 RNA (RT-PCR) Not Detected Preliminary micro results at discharge 07/28/20 00:43 Blood Culture - Preliminary Blood - Venous No growth after 24 hours. 07/28/20 00:43 Blood Culture - Preliminary Blood - Venous No growth after [address] chest: IMPRESSION: Bronchial wall thickening noted. Consolidative nodular opacities are seen bilaterally. This appearance may be infectious or inflammatory. Discharge Plan Discharge Anticipated Discharge Date/Time: 07/29/20 11:28 Patient Disposition: Home, Self-Care Referrals: [facility] [Primary Care Provider] - Discharge Medications: New albuterol sulfate [Ventolin HFA] 90 mcg/actuation Hfa Aerosol Inhaler 2 puff inhalation RQ4H PRN (Reason: Shortness Of Breath/Wheezing) Qty: 1 RF: 0 No Action No Known Home Meds RF: 0 Diet: advance to your usual diet Activity on Discharge: As tolerated Visit Report Forms: Patient Portal Discharge page Care Plan Goals: Resolution of pneumonia Health Concerns: penumonia and sepsis Plan of Treatment: Take antibiotics as recommended and follow up with your Docotor in a week, call for appointment
--- NOTE | 2020-07-29 12:24 | MHC.CM.PN ---
Patient will be discharged home today no services. Taxi voucher given. Nurse is aware
--- NOTE | 2020-07-29 15:39 | MHC.CARE ---
Addiction Consult Service note: Patient is a 54 year old [place] speaking male who reports he came to [facility] due to his asthma. This machine sign writer met with patient utilizing an [facility] certified court/medical interpreter. Patient reports he hit his rib and experienced a lot of pain as a result. Patient reports he started using heroin to deal with the pain. Patient acknowledges that heroin use is dangerous and he reports he will not continue using now that his rib is feeling better. Patient reports he has not used alcohol in several years. Patient reports that his apartment is currently being renovated and that he has had to stay with different people over the last few weeks which has been chaotic. This machine sign writer discussed support groups for substance use with patient. Patient reports he is interested however hasn't gone in the past because he can't find groups in [place]. Patient provided with the information for [facility] where [place] groups are offered. Patient reports no questions or concerns at this time.
[2020-08-03 09:17] LABS: Legionella Ag Urine Not Detected (Not Detected)
== END 2020-07-29 15:30 | disposition home or self-care (01) | DRG 720 ==
LOC: HO.ED 07-28 02:19 → HO.IMC 07-28 02:50
PROVIDERS: Admitting Provider Internal Medicine; Emergency Provider Emergency Medicine; Visit Provider Internal Medicine
DX: A41.9 Sepsis, unspecified organism (principal); E87.2 Acidosis; J18.9 Pneumonia, unspecified organism; I10 Essential (primary) hypertension; R09.02 Hypoxemia; F17.210 Nicotine dependence, cigarettes, uncomplicated; F10.10 Alcohol abuse, uncomplicated; Z20.828 Contact with and (suspected) exposure to other viral communicable diseases; Z71.6 Tobacco abuse counseling; Z79.899 Other long term (current) drug therapy
CPT/HCPCS: 36415; 71045; 71250; 80048; 80076; 80307; 83605; 83615; 83735; 83880; 84484; 85025; 87040; 87449; 87633; 87635; 87899; 93005; 96365; 96366; 96375; 99284; 99291; J0456; J0696; J1650; J2405; J2560; J2930; J3411; J3475

== ENCOUNTER 2020-08-09 11:13 | Emergency (ER) | payer MEDICAID, SELFPAY ==
--- NOTE | 2020-08-09 | ECG_ITS ---
Test Reason : ASTHMA Blood Pressure : / mmHG Vent. Rate : 063 BPM Atrial Rate : 063 BPM P-R Int : 148 ms QRS Dur : 076 ms QT Int : 428 ms P-R-T Axes : 056 056 046 degrees QTc Int : 437 ms Normal sinus rhythm Nonspecific T wave abnormality Borderline ECG When compared with ECG of 27-JUL-2020 23:42, Vent. rate has decreased BY 58 BPM Referred By: Roosevelt Romano Electronically Signed By:EVE MIRANDA MD
[2020-08-09 11:23] VITALS: BP 116/63; BP 120/77; PULSE 71; PULSE 72; RESP 16; TEMP 36.8; O2SAT 100; O2SAT 99; BMI 37.6
--- NOTE | 2020-08-09 11:40 | ED.ASTHMA ---
HPI - Asthma General Chief Complaint: Asthma Stated Complaint: SOB X'S WEEKS Time Seen by Provider: 08/09/20 11:40 Source: patient Mode of arrival: ambulatory Limitations: no limitations History of Present Illness HPI Narrative: Patient with asthma attack and laryngitis for one week. Patient came in because the asthma was getting worse. Denies fever 2 weeks ago he had a COVID test that was negative complaint: asthma attack , shortness of breath and wheezing Onset (ago): week(s) Severity: moderate Related Data Previous Rx's Medication Instructions Recorded albuterol sulfate [Ventolin HFA] 2 puff INHALATION RQ4H PRN #1 g 07/29/20 azithromycin 500 mg PO DAILY 3 Days #3 tab 07/29/20 cefuroxime axetil 500 mg PO BID 7 Days #14 tab 07/29/20 prednisone 60 mg PO DAILY #12 tab 08/09/20 Allergies Allergy/AdvReac Type Severity Reaction Status Date / Time ruvalcaba Allergy Severe WHEEZING Verified 07/09/20 02:21 AND THROAT SWELLING apple [Apple] Allergy Unknown UNKNOWN Verified 07/09/20 02:21 carrot [CARROT] Allergy Unknown ITCHING TO Verified 07/09/20 02:21 THROAT. peach [PEACH] Allergy Unknown UNKNOWN Verified 07/09/20 02:21 pear [Pear] Allergy Unknown UNKNOWN Verified 07/09/20 02:21 plum [PLUM] Allergy Unknown UNKNOWN Verified 07/09/20 02:21 sertraline Allergy Unknown Unknown Uncoded 07/09/20 02:21 Review of Systems Constitutional: Constitutional: Reports no additional constitutional complaints Eyes: Eyes: Reports no additional eye complaints ENT: Denies dizziness Cardiovascular: Cardiovascular: Reports no additional cardiovascular complaints Respiratory: Respiratory: Reports as per HPI Gastrointestinal: Gastrointestinal: Reports no additional gastrointestinal complaints Musculoskeletal: Musculoskeletal: Reports no additional musculoskeletal complaints Integumentary/Breasts: Skin/Breast: Denies rash Neurologic: Reports system reviewed and no additional complaints, except as documented, Denies dizziness and Denies Sensory deficit (Neuro) Psychiatric: Psychiatric: Denies anxiety PMFSH Past Medical History Medical History Asthma Hypertension Patient denies medical problems Surgical History No pertinent past surgical history Social History Social History Household Members: None Housing: Apartment Alcohol intake: current Alcohol intake frequency: 3 or more drinks per day Alcohol type: beer and hard liquor Smoking Status: Current every day smoker Tobacco Type: Cigarette Smoked in Last 30 Days: Yes Use of substances other than those prescribed or required for medical reasons: Yes Substance Use Type: Heroin Substance Use Frequency: Daily Last Used Substance: Hours (ago) Any prior treatment program specific to substance use: Yes Advance Directives: No Advance Directives Information Provided: Yes service: No Current occupational status: unemployed Physical Exam Vital Signs: Vital Signs: Last Vital Signs Temp 98.1 F 08/09/20 12:37 Pulse 86 08/09/20 12:37 Resp 17 08/09/20 12:37 BP 114/62 08/09/20 12:37 Pulse Ox 93 08/09/20 12:37 Body Mass Index 37.6 Const: Other: Patient with pharyngitis General: healthy appearing Nutritional Appearance: average body habitus Orientation/consciousness: oriented to person and patient oriented x3 Limitations: no limitations HENMT: Head: Yes normal to inspection Ears: external ears normal General nose exam: Normal external nose present Mouth: Normal oral and palatal mucosa present and oropharynx normal Throat: Yes posterior oropharynx normal Eyes: General: appearance normal, both eyes and all related structures Neck: Other: supple Neck: Yes normal visual inspection Chest: Chest palpation & inspection: normal inspection of the chest Resp: Other: diffuse wheezing bilaterally Cardio: Jugular venous distension: no JVD Rate: regular rate Rhythm: regular rhythm Heart sounds: S1 normal heart sound present and S2 normal heart sound present GI: Inspection: Yes normal to inspection Palpation (GI): Soft to palpation, nontender and No hepatosplenomegaly present Auscultation: normal bowel sounds : General: Yes no CVA tenderness Back/Spine/Pelvis: Back: no CVA tenderness Skin: General skin exam: no rashes or lesions noted Neuro: General: oriented to person and patient oriented x3 Cranial nerves: Yes CN's II-XII intact bilaterally Motor exam (neuro): 5/5 motor strength present throughout Sensory Exam: No Sensory deficit (Neuro) Extrem: General: Yes normal to inspection Psych: Appearance: grossly normal Course Course Course Narrative: patient sleeping still with slight wheeze will give another treatment and dc home MDM - Asthma MDM Narrative Medical decision making narrative: resting comfortably breathing well will dc home. Viral panel negative, will start steroids Lab Data Labs: Lab Results 08/09/20 Range/Units 12:16 Coronavirus (PCR) NEGATIVE (Negative) Influenza Type A (PCR) NEGATIVE (Negative) Influenza Type B (PCR) NEGATIVE (Negative) RSV RNA Qual (PCR) NEGATIVE (Negative) ECG Data Attestation: I personally reviewed and interpreted this ECG as follows: Interpretation: normal sinus rate of 63, no st or twave changes Discharge Plan Discharge Clinical Impression: Laryngitis Asthma with acute exacerbation Qualifiers: Asthma severity: mild Asthma persistence: intermittent Qualified Code(s): J45.21 - Mild intermittent asthma with (acute) exacerbation Patient Disposition: Home, Self-Care Instructions: Asthma (ED) Prescriptions: New prednisone 20 mg tablet 60 mg PO DAILY Qty: 12 RF: 0 No Action albuterol sulfate [Ventolin HFA] 90 mcg/actuation Hfa Aerosol Inhaler 2 puff inhalation RQ4H PRN (Reason: Shortness Of Breath/Wheezing) Qty: 1 RF: 0 cefuroxime axetil 500 mg tablet 500 mg PO BID 7 Days Qty: 14 RF: 0 azithromycin 500 mg tablet 500 mg PO DAILY 3 Days Qty: 3 RF: 0
[2020-08-09] MEDS: Albuterol/Iprat 2.5/0.5MG 3 ML AMPUL.NEB INHALE (12:06)
[2020-08-09 12:37] VITALS: BP 114/62; PULSE 86; RESP 17; TEMP 36.7; O2SAT 93
--- NOTE | 2020-08-09 12:38 | PC.NURSE ---
pt sat 93% on RA, placed on 2L oxygen, he has improved to 96%. He states he does not feel well and says he feels like he is beginning to detox.
[2020-08-09 13:08] LABS: Influenza A PCR NEGATIVE (Negative); Influenza B PCR NEGATIVE (Negative); Resp Syncy Virus RNA Qual PCR NEGATIVE (Negative)
[2020-08-09 13:09] LABS: SARS COV2 PCR INHOUSE NEGATIVE (Negative)
[2020-08-09] MEDS: Albuterol Sulfate (0.083%) 2.5 MG/3 ML VIAL.NEB INHALE (13:27)
[2020-08-09] MEDS: predniSONE 20 MG TABLET 60 MG PO (13:56)
[2020-08-09 14:15] VITALS: BP 114/62; PULSE 86; RESP 17; TEMP 36.7; O2SAT 93
--- NOTE | 2020-08-09 14:15 | PC.NURSE ---
PT HAS BEEN SEEN BY ADDICTION DERMATOLOGIST AND DERMATOPATHOLOGIST. HE HAS BEEN SLEEPING IN ROOM, VS STABLE. PT READY FOR DISCHARGE.
== END 2020-08-09 14:55 | disposition home or self-care (01) ==
PROVIDERS: Emergency Provider Emergency Medicine
DX: J04.0 Acute laryngitis (principal); J45.21 Mild intermittent asthma with (acute) exacerbation; Z79.899 Other long term (current) drug therapy; F17.210 Nicotine dependence, cigarettes, uncomplicated; Z71.6 Tobacco abuse counseling; Z20.828 Contact with and (suspected) exposure to other viral communicable diseases
CPT/HCPCS: 0241U; 93005; 94640; 99284

== ENCOUNTER 2021-03-31 12:52 | Emergency (ER) | payer MEDICAID, SELFPAY ==
--- NOTE | ~2021-03-31 | XR_ITS ---
EXAMINATION: XR FINGER, LEFT CLINICAL INFORMATION: Pain COMPARISON: None TECHNIQUE: Three views of the left thumb. FINDINGS: There is a transverse, comminuted minimally displaced fracture of the distal phalanx of the thumb. This may be intra-articular with the IP joint. There is overlying soft tissue swelling. No other fracture is seen. XR/XR finger LT min 2V IMPRESSION: Fracture of the distal phalanx of the thumb.
[2021-03-31 13:00] VITALS: BP 170/100; PULSE 95; RESP 18; TEMP 36.4; O2SAT 97; BMI 39.2
--- NOTE | 2021-03-31 14:46 | ED_ITS ---
HPI - General Adult General Chief complaint: General Medical Stated complaint: finger injury x 7 weeks ago Time Seen by Provider: 03/31/21 14:16 Source: patient Mode of arrival: ambulatory Limitations: no limitations History of Present Illness HPI narrative: 55-year-old male here with left thumb pain. He tells me that about 7 weeks ago he had a slip and fall causing injury to the thumb. He was not seen for the injury at that time and since then he has had persistent pain. Related Data Previous Rx's Medication Instructions Recorded albuterol sulfate [Ventolin HFA] 2 puff INHALATION RQ4H PRN #1 g 07/29/20 azithromycin 500 mg PO DAILY 3 Days #3 tab 07/29/20 cefuroxime axetil 500 mg PO BID 7 Days #14 tab 07/29/20 prednisone 60 mg PO DAILY #12 tab 08/09/20 diltiazem HCl 120 mg 120 mg PO QAM #90 cap 03/16/21 capsule,extended release 24 hr Allergies Allergy/AdvReac Type Severity Reaction Status Date / Time ruvalcaba Allergy Severe WHEEZING Verified 07/09/20 02:21 AND THROAT SWELLING apple [Apple] Allergy Unknown UNKNOWN Verified 07/09/20 02:21 carrot [CARROT] Allergy Unknown ITCHING TO Verified 07/09/20 02:21 THROAT. peach [PEACH] Allergy Unknown UNKNOWN Verified 07/09/20 02:21 pear [Pear] Allergy Unknown UNKNOWN Verified 07/09/20 02:21 plum [PLUM] Allergy Unknown UNKNOWN Verified 07/09/20 02:21 sertraline Allergy Unknown Unknown Uncoded 07/09/20 02:21 Review of Systems Review of Systems: Yes all other systems are reviewed and are negative Constitutional: Constitutional: Reports no additional constitutional complaints, Denies body ache(s), Denies chills, Denies fever(s), Denies head ache(s) and Denies weakness Eyes: Eyes: Reports no additional eye complaints and Denies change in vision ENT: Reports system reviewed and no additional complaints, except as documented, Denies dizziness, Denies headache(s), Denies nasal congestion, Denies nasal discharge and Denies neck pain Cardiovascular: Cardiovascular: Reports no additional cardiovascular complaints, Denies chest pain, Denies leg edema and Denies dyspnea Respiratory: Respiratory: Reports no additional respiratory complaints, Denies cough and Denies dyspnea Gastrointestinal: Gastrointestinal: Reports no additional gastrointestinal complaints, Denies abdominal pain, Denies diarrhea, Denies nausea and Denies vomiting Genitourinary: Genitourinary: Denies urinary incontinence Musculoskeletal: Musculoskeletal: Reports no additional musculoskeletal complaints, Denies back pain, Reports arthralgias, Reports joint swelling, Reports limited range of motion, Denies neck pain, Denies numbness and Denies tingling Integumentary/Breasts: Skin/Breast: Reports system reviewed and no additional complaints, except as docu and Denies rash Neurologic: Reports system reviewed and no additional complaints, except as documented, Denies Abnormal speech present, Denies dizziness, Denies headache(s), Denies numbness, Denies tingling and Denies weakness PMFSH Past Medical History Attestation statement: The following information was validated with the patient. Source: old records reviewed and nursing notes reviewed Medical History Alcohol abuse Asthma Hypertension Patient denies medical problems Polysubstance abuse Surgical History No pertinent past surgical history Social History Social History Household Members: None Housing: Apartment Do you presently have visiting nurse or other home services: No Alcohol intake: current Alcohol intake frequency: 3 or more drinks per day Alcohol type: beer and hard liquor Substance Use Type: Heroin Advance Directives: No Advance Directives Information Provided: No service: No Current occupational status: unemployed Physical Exam Vital Signs: Vital Signs: Last Vital Signs Temp 97.5 F 03/31/21 13:00 Pulse 95 03/31/21 13:00 Resp 18 03/31/21 13:00 BP 170/100 H 03/31/21 13:00 Pulse Ox 97 03/31/21 13:00 Body Mass Index 39.2 Const: General: cooperative, healthy appearing, comfortable and no acute distress Orientation/consciousness: patient oriented x3 Limitations: no limitations HENMT: Head: Yes normal to inspection Ears: hearing grossly normal bilaterally General nose exam: Normal external nose present Face and sinus: Yes normal facial exam Mouth: Normal oral and palatal mucosa present Throat: Yes posterior oropharynx normal Eyes: General: appearance normal, both eyes and all related structures Pupils: Equal, round and reactive pupils present Neck: Neck: Yes normal visual inspection Chest: Chest palpation & inspection: normal inspection of the chest Resp: Effort & Inspection: normal respiratory effort Auscultation: clear to auscultation bilaterally Cardio: Rate: regular rate Rhythm: regular rhythm Peripheral pulses: Peripheral pulses 2+ throughout GI: Inspection: Yes normal to inspection Palpation (GI): Soft to palpation and nontender Auscultation: normal bowel sounds Back/Spine/Pelvis: Thoracic/Lumbar Spine: thoracic and lumbar spine normal to inspection Skin: General skin exam: no rashes or lesions noted Neuro: General: patient oriented x3, no focal motor deficits and normal sensation to monofilament Cranial nerves: Yes Equal, round and reactive pupils present Cognition (Neuro): normal cognition Speech: No Abnormal speech present Gait exam (Neuro): Normal gait present Motor exam (neuro): 5/5 motor strength present throughout Extrem: Other: There is tenderness to the entire left thumb. There is limited flexion and extension of the thumb due to pain. Neurovascularly intact distally. No obvious swelling or deformity General: Yes normal to inspection Course Course Course Narrative: persistent pain and left thumb after an injury 7 weeks ago. Will check imaging - imaging consistent with Fracture of the distal phalanx of the thumb. placed in Velcro thumb spica splint. Recommend following up with Orthopedics. Reviewed worrisome signs and symptoms and when to return to the emergency department. Comfortable with discharge home. Procedures Procedure Narrative Procedure Narrative: Velcro thumb spica splint Medical Decision Making Medical Records Medical records reviewed: Yes I reviewed the patient's medical records. Lab Data Lab results reviewed: Yes I reviewed the patient's lab results. Imaging Data left thumb xray: Attestation: I personally reviewed and interpreted this imaging study as follows: Radiologist's impression: FINDINGS: There is a transverse, comminuted minimally displaced fracture of the distal phalanx of the thumb. This may be intra-articular with the IP joint. There is overlying soft tissue swelling. No other fracture is seen. XR/XR finger LT min 2V IMPRESSION: Fracture of the distal phalanx of the thumb. Discharge Plan Discharge Clinical Impression: Phalanx, distal fracture of finger Qualifiers: Encounter type: initial encounter Finger: thumb Fracture type: closed Fracture alignment: displaced Laterality: left Qualified Code(s): S62.522A - Displaced fracture of distal phalanx of left thumb, initial encounter for closed fracture Patient Disposition: Home, Self-Care Instructions: Finger Fracture (ED) Additional Instructions: ice to the area splint for comfort as needed limit use of the hand follow-up with orthopedics Prescriptions: No Action diltiazem HCl [Cartia XT] 120 mg capsule,extended release 24hr 120 mg PO QAM Qty: 90 RF: 1 prednisone 20 mg tablet 60 mg PO DAILY Qty: 12 RF: 0 albuterol sulfate [Ventolin HFA] 90 mcg/actuation Hfa Aerosol Inhaler 2 puff inhalation RQ4H PRN (Reason: Shortness Of Breath/Wheezing) Qty: 1 RF: 0 cefuroxime axetil 500 mg tablet 500 mg PO BID 7 Days Qty: 14 RF: 0 azithromycin 500 mg tablet 500 mg PO DAILY 3 Days Qty: 3 RF: 0 Referrals: Lilian Roach MD [Physician] - 2 days Interventions: ED Discharge Assessment Last Done: 03/31/21 14:41 Discharge Date/Time: 03/31/21 14:42
== END 2021-03-31 14:42 | disposition home or self-care (01) ==
PROVIDERS: Emergency Provider Emergency Medicine Emergency Medical Services; PCP Family Medicine
DX: S62.522A Displaced fracture of distal phalanx of left thumb, initial encounter for closed fracture (principal); I10 Essential (primary) hypertension; J45.909 Unspecified asthma, uncomplicated; Z79.899 Other long term (current) drug therapy; W01.0XXA Fall on same level from slipping, tripping and stumbling without subsequent striking against object, initial encounter; Y93.9 Activity, unspecified; Y92.9 Unspecified place or not applicable; Y99.9 Unspecified external cause status
CPT/HCPCS: 73140; 99283

== ENCOUNTER 2022-03-16 13:41 | Outpatient (REF) | payer MEDICAID, SELFPAY ==
[2022-03-16 13:51] LABS: MANUAL DIFF FLAG NO
[2022-03-16 14:01] LABS: Basophils Absolute Auto 0.1 X10*3/uL (0.0-0.2); Basophils Percent Auto 0.9 % (0-2); Eosinophils Absolute Auto 0.3 X10*3/uL (0.0-0.4); Eosinophils Percent Auto 3.7 % (0-4); Hematocrit 42.6 % (42.0-52.0); Hemoglobin 14.6 g/dl (14.0-18.0); Imm Gran Abs Auto 0.03 X10*3/uL (0.00-0.03); Imm Gran Pct Auto 0.3 % (0.0-0.4); Lymphocytes Absolute Auto 2.9 X10*3/uL (1.2-4.9); Lymphocytes Percent Auto 33.6 % (20-40); Mean Corpuscular HGB Conc 34.3 g/dl (31.0-36.0); Mean Corpuscular Hemoglobin 30.5 pg (27.0-33.0); Mean Corpuscular Volume 88.9 fL (80.0-98.0); Mean Platelet Volume 11.7 fL (9.4-12.4); Monocytes Absolute Auto 0.8 X10*3/uL (0.1-1.2); Monocytes Percent Auto 9.4 % (2-11); Neutrophils Absolute Auto 4.5 x10*3/uL (2.0-8.3); Neutrophils Percent Auto 52.1 % (45-73); Platelet Count 175 X10*3/uL (160-400); Red Blood Count 4.79 X10*6/uL (4.60-5.80); Red Cell Distribution Width 13.1 % (11.0-16.0); White Blood Count 8.7 X10*3/uL (4.8-10.8)
[2022-03-16 14:30] LABS: Alanine Aminotransferase 133 U/L (0-40); Albumin Level 4.2 g/dL (3.5-5.0); Alkaline Phosphatase 122 U/L (39-117); Anion Gap 15 (12-20); Aspartate Amino Transferase 72 U/L (5-37); Bilirubin Total 0.6 mg/dL (0.0-1.0); Blood Urea Nitrogen 9 mg/dL (9-16); Calcium 9.2 mg/dL (8.4-10.2); Carbon Dioxide 23 mmol/L (22-29); Chloride 104 mmol/L (96-108); Estimated Glomerular Filt Rate > 60; Glucose Random 132 mg/dL (60-115); Potassium 3.9 mmol/L (3.3-5.1); Sodium 138 mmol/L (135-145); Total Protein 7.2 g/dL (6.5-8.0)
== END 2022-03-16 13:42 | disposition home or self-care (01) ==
LOC: HO.LAB 13:41
PROVIDERS: PCP Family Medicine; Visit Provider Nurse Practitioner
DX: K70.9 Alcoholic liver disease, unspecified (principal); R76.11 Nonspecific reaction to tuberculin skin test without active tuberculosis; F19.10 Other psychoactive substance abuse, uncomplicated; F10.10 Alcohol abuse, uncomplicated; J44.9 Chronic obstructive pulmonary disease, unspecified; Z12.11 Encounter for screening for malignant neoplasm of colon
CPT/HCPCS: 36415; 80053; 85025; 99202

== ENCOUNTER 2024-05-06 12:08 | Outpatient (REF) | payer MEDICAID, SELFPAY ==
[2024-05-06 13:14] LABS: MANUAL DIFF FLAG NO
[2024-05-06 13:32] LABS: Basophils Absolute Auto 0.1 X10*3/uL (0.0-0.2); Basophils Percent Auto 0.8 % (0-2); Eosinophils Absolute Auto 0.1 X10*3/uL (0.0-0.4); Eosinophils Percent Auto 1.7 % (0-4); Hematocrit 38.2 % (42.0-52.0); Hemoglobin 12.7 g/dl (14.0-18.0); Imm Gran Abs Auto 0.04 X10*3/uL (0.00-0.03); Imm Gran Pct Auto 0.6 % (0.0-0.4); Lymphocytes Absolute Auto 2.5 X10*3/uL (1.2-4.9); Lymphocytes Percent Auto 34.4 % (20-40); Mean Corpuscular HGB Conc 33.2 g/dl (31.0-36.0); Mean Corpuscular Hemoglobin 27.9 pg (27.0-33.0); Monocytes Absolute Auto 0.6 X10*3/uL (0.1-1.2); Monocytes Percent Auto 8.4 % (2-11); Neutrophils Absolute Auto 3.9 x10*3/uL (2.0-8.3); Neutrophils Percent Auto 54.1 % (45-73); Platelet Count 162 X10*3/uL (160-400); Red Blood Count 4.55 X10*6/uL (4.60-5.80); Red Cell Distribution Width 13.6 % (11.0-16.0); White Blood Count 7.2 X10*3/uL (4.8-10.8)
[2024-05-06 14:19] LABS: Alanine Aminotransferase 23 U/L (0-40); Albumin Level 4.2 g/dL (3.5-5.0); Alkaline Phosphatase 100 U/L (39-117); Aspartate Amino Transferase 19 U/L (5-37); Bilirubin Direct 0.1 mg/dL (0.0-0.5); Bilirubin Total 0.4 mg/dL (0.0-1.0); Blood Urea Nitrogen 10 mg/dL (9-16); Estimated Glomerular Filt Rate > 60; Total Protein 7.3 g/dL (6.5-8.0)
[2024-05-07 08:13] LABS: HIV AB/AG Nonreactive (Nonreactive); HIV Num 1 0.05 S/CO (0.00-0.99); ~HepC Num1 0.29 S/CO (0.00-0.79); ~Hepatitis C Antibody Nonreactive (Nonreactive)
[2024-05-09 16:29] LABS: TS Negative Control Passed; TS Panel A 0; TS Panel B 1; TS Positive Control Passed; TSpotTB Negative (Negative)
== END 2024-05-06 12:09 | disposition home or self-care (01) ==
LOC: HO.HHCL 12:08
PROVIDERS: Visit Provider Emergency Medicine
DX: F11.20 Opioid dependence, uncomplicated (principal)
CPT/HCPCS: 36415; 80076; 82565; 84520; 85025; 86481; 86803; 87389

== ENCOUNTER 2024-05-15 17:28 | Outpatient (REF) | payer MEDICAID, SELFPAY | END 2024-05-15 17:29 | disposition home or self-care (01) | LOC: HO.HHCLNP 17:28 | PROVIDERS: Visit Provider Nurse Practitioner Family | DX: J02.9 Acute pharyngitis, unspecified (principal) | CPT/HCPCS: 87070 ==

== ENCOUNTER 2024-07-28 08:23 | Outpatient (REF) | payer MEDICAID, SELFPAY ==
[2024-07-28 11:39] LABS: MANUAL DIFF FLAG NO
[2024-07-28 11:56] LABS: Basophils Absolute Auto 0.1 X10*3/uL (0.0-0.2); Basophils Percent Auto 0.5 % (0-2); Eosinophils Absolute Auto 0.2 X10*3/uL (0.0-0.4); Eosinophils Percent Auto 2.6 % (0-4); Hematocrit 42.5 % (42.0-52.0); Imm Gran Abs Auto 0.03 X10*3/uL (0.00-0.03); Imm Gran Pct Auto 0.3 % (0.0-0.4); Immature Retic Fraction 9.5 % (2.3-13.4); Lymphocytes Absolute Auto 2.5 X10*3/uL (1.2-4.9); Lymphocytes Percent Auto 27.9 % (20-40); Mean Corpuscular HGB Conc 32.9 g/dl (31.0-36.0); Mean Corpuscular Hemoglobin 27.8 pg (27.0-33.0); Mean Corpuscular Volume 84.3 fL (80.0-98.0); Mean Platelet Volume 12.7 fL (9.4-12.4); Monocytes Absolute Auto 0.7 X10*3/uL (0.1-1.2); Neutrophils Absolute Auto 5.5 x10*3/uL (2.0-8.3); Neutrophils Percent Auto 60.7 % (45-73); Platelet Count 160 X10*3/uL (160-400); Red Blood Count 5.04 X10*6/uL (4.60-5.80); Red Cell Distribution Width 13.2 % (11.0-16.0); Retic HGB Equivalent 33.3 pg (30.0-35.0); Reticulocyte Percent 1.3 % (0.5-1.8); Reticulocytes Absolute 0.066 X10*6/uL (0.026-0.095); White Blood Count 9.1 X10*3/uL (4.8-10.8)
[2024-07-28 12:44] LABS: Creatinine Urine 401.71 mg/dL; Microalbum/Creatinine Ratio Ur 3.4 ug/mg cr (<30)
[2024-07-28 12:53] LABS: Cholesterol 217 mg/dL (<200); HDL Cholesterol 41 mg/dL (>40); Iron 133 mcg/dL (45-160); LDL Cholesterol Calculated 148 mg/dL (<100); Percent Iron Saturation 34 % (15-50); Total Iron Binding Capacity 394 mcg/dL (228-428); Triglycerides 141 mg/dL (<150); Unsaturated Iron Binding 261 ug/dL
[2024-07-28 13:09] LABS: Ferritin 26 ng/mL (20-250); Folate 9.5 ng/mL (> or = 4.0); Prostate Specific Antigen Scr 0.48 ng/mL (<0.05-4.0); TSH reflex Free T4 1.49 uIU/mL (0.32-4.0); Vitamin B12 191 pg/mL (200-900)
[2024-07-28 13:25] LABS: Reflex LDLD? No
== END 2024-07-28 08:24 | disposition home or self-care (01) ==
LOC: HO.HHCL 08:23
PROVIDERS: Visit Provider Family Medicine
DX: D64.9 Anemia, unspecified (principal); N52.9 Male erectile dysfunction, unspecified; E11.65 Type 2 diabetes mellitus with hyperglycemia; I10 Essential (primary) hypertension
CPT/HCPCS: 80061; 82043; 82570; 82607; 82728; 82746; 83540; 84153; 84443; 85025; 85045

== ENCOUNTER 2024-09-22 11:09 | Outpatient (REF) | payer MEDICAID, SELFPAY ==
--- NOTE | ~2024-09-22 | XR_ITS ---
EXAMINATION: XR CHEST CLINICAL INFORMATION: cough and SOB r/o PNA COMPARISON: CT chest dated 07/28/2020. TECHNIQUE: 2 views of the chest were obtained. FINDINGS: The lungs are clear. The cardiomediastinal silhouette is normal in size. There is no pleural effusion or pneumothorax. No acute osseous abnormality. XR/XR chest 2V IMPRESSION: No acute cardiopulmonary findings. Electronically signed by: Nadeem Gardner MD 09/22/2024 12:37 PM JU
== END 2024-09-22 11:10 | disposition home or self-care (01) ==
LOC: HO.HHCX 11:09
PROVIDERS: Visit Provider Family Medicine
DX: J06.9 Acute upper respiratory infection, unspecified (principal); J44.1 Chronic obstructive pulmonary disease with (acute) exacerbation
CPT/HCPCS: 71046

== ENCOUNTER 2025-05-28 11:54 | Outpatient (REF) | payer MEDICAID, SELFPAY ==
--- OUTSIDE RECORDS SUMMARY | 2025-05-28 12:47 | XMS_ITS | Encounter Summary ---
Author Organization [employer] Address [address] [facility] [facility] [address] [place] [address] Care Team Providers Care Principal Clerk Typist Name Role Phone Val Menchaca MD Primary Care Provider Rey Travis PharmD Unavailable [phone] Encounter Details Date Type Department Care Team ([facility] st Contact Info) Description 07/29/2024 Orders Only [facility] [address] [place], [place] [phone] Val Menchaca MD [address] [place] [address] Social History Tobacco Use Types Packs/Day Years Used Date Smoking Tobacco: Former Cigarettes 0.5 14 2 - 2020 Passive Smoke Exposure: Never Smokeless Tobacco: Never Alcohol Use Standard Drinks/Week Comments Not Currently 0 (1 standard drink = 0.6 oz pur e alcohol) Alcohol Answer Date Recorded Frequency of Alcohol Consumption Not on file 04/23/2024 Average Number of Drinks Not on file 024 Frequency of Binge Drinking Not on file 03/31 Score 0 04/23/2024 Depression Answer Date Recorded Patient Health Questionnaire-9 Score 4 06/30/2024 Patient Health Questionnaire-9 Score 4 06/30/2024 Last PHQ-9: Questionnaire Data Not on file 1 Housing Stability Answer Date Recorded What is your housing situation today? I have teri kan 06/23/[address] you li ve. Do you have problems with any of the following? None of the above 06/23/2024 Food Insecurity Answer Date Recorded Within the past 12 months, y ou worried that your food would run out before you got money to buy more: Never True 06/23/2024 Within the past 12 months,th e food you bought just didn't last and you didn't have enough money to get more: Never True Transportation Answer Date Recorded In the past 12 months, has l ack of transportation kept you from medical appts, meetings, work or from getting things needed for daily living? No 06/23/2024 Utilities Answer Date Recorded In the past 12 months, has t he [employer], gas, oil or water company threatened to shut off services in your home? No 06/23/2024 Depression Answer Date Recorded Patient Health Questionnaire-2 Score 2 06/30/2024 Internet Access Answer Date Recorded Internet Access Q1 Yes 06/23/2024 Internet Access Q2 Not on file 06/23/2024 Sex and Gender Information Value Date Recorded Sex Assigned at Male 07/30/2022 10:14 AM EDT Legal Sex Male 10:14 AM EDT Gender Identity Male 07/30/2022 10:14 AM EDT Sexual Orientation Straight 07/30/2022 10 :14 AM EDT documented as of this encounter Plan of Treatment Upcoming Encounters Date Type Department Care Team (Late st Contact Info) Description 06/04/2025 1:30 PM EDT Telemedicine [facility] [address] [place] [id number] Rey Travis, PharmD [address] [place] [phone] 06/15/2025 10:15 AM EDT Office Visit [facility] [address] [place] [phone] Harley Botello MD [address] [place] [phone] documented as of this encounter Goals Goal Patient Goal Type Associated Problems Recent Progress Patient-Stated? Author Blood Pressure < 140/90 Blood Pressure 150/86( 025 9:56 AM EDT) No Rey Travis, PharmD documented as of this encounter Visit Diagnoses Not on filedocumented in this encounter Additional Health Concerns Assessment Noted Time PHQ-9 Depression Total Score: 4 06/30/20 10:37 AM EDT documented as of this encounter Care Teams Principal Clerk Typist Relationship Specialty Start Date End Date Val Menchaca MD [address] [place] [address] PCP - General Family Medicine 05/12/24 Rey Travis PharmD [address] [place] [address] Pharmacist Internal Medicine 02/01/25 documented as of this encounter
--- OUTSIDE RECORDS SUMMARY | 2025-05-28 12:47 | XMS_ITS | Encounter Summary ---
Author Organization [employer] Address [address] [facility] [address] [place] [address] Care Team Providers Care Management Planner Name Role Phone Val Menchaca MD Primary Care Provider [phone] Rey Travis PharmD Unavailable [phone] Val Menchaca MD Primary Care Provider [phone] Rey Travis PharmD Unavailable [phone] Reason for Visit * Reason Comments Med Refill Encounter Details Date Type Department Care Team (Late st Contact Info) Description 01/31/[address] [facility] [address] [place] [address] [phone] Fredy Wallace MD [address] [place], [place] [phone] Social History Tobacco Use Types Packs/Day Years Used Date Smoking Tobacco: Never Smokeless Tobacco: Never Alcohol Use Standard Drinks/Week Comments Never 0 (1 standard drink = 0.6 oz pur e alcohol) Depression Answer Date Recorded Patient Health Questionnaire-9 Score 0 11/12/2022 Depression Answer Date Recorded Patient Health Questionnaire-2 Score 0 11/12/2022 Sex and Gender Information Value Date Recorded Sex Assigned at Male 07/30/2022 10:14 AM EDT Legal Sex Male 10:14 AM EDT Gender Identity Male 07/30/2022 10:14 AM EDT Sexual Orientation Straight 07/30/2022 10 :14 AM EDT COVID-19 Exposure Response Date Recorded In the last 10 days, have yo u been in contact with someone who was confirmed or suspected to have Coronavirus/COVID-19? No / Unsure 01/15/2023 9:04 AM EDT documented as of this encounter Plan of Treatment Upcoming Encounters Date Type Department Care Team (Late st Contact Info) Description 06/04/2025 1:[address] [facility] [place] [address] Rey Travis, PharmD [facility] [place] [address] 06/15/2025 10:15 AM EDT Office Visit [facility] [place] [address] Harley Botello MD [facility] [address] [place], [place] [phone] documented as of this encounter Visit Diagnoses Not on filedocumented in this encounter Additional Health Concerns Assessment Noted Time PHQ-9 Depression Total Score: 0 11/12/19 23 11:22 AM EST documented as of this encounter Care Teams Management Planner Relationship Specialty Start Date End Date Val Menchaca MD [facility] [place] [address] PCP - General Family Medicine 07/30/12 02/10/24 Val Menchaca MD [facility] [place] [address] PCP - General Family Medicine 05/12/24 Rey Travis, PharmD [address] [place], [place] [phone] [place] [address] Pharmacist Internal Medicine 02/08/23 02/10/24 Rey Travis, PharmD [facility] [place] [address] Pharmacist Internal Medicine 02/01/25 documented as of this encounter
--- OUTSIDE RECORDS SUMMARY | 2025-05-28 12:47 | XMS_ITS | Encounter Summary ---
Author Organization [employer] Address [address] [facility] [address] [place] [address] Care Team Providers Care Infrastructure Analyst Name Role Phone Val Menchaca MD Primary Care Provider [phone] Rey Travis PharmD Unavailable [phone] Val Menchaca MD Primary Care Provider [phone] Rey Travis PharmD Unavailable [phone] Encounter Details Date Type Department Care Team (Latest Contact Info) Description 03/30/2019 Abstract [facility] CONVERSIONS Dental, Provider, DDS Social History Tobacco Use Types Packs/Day Years Used Date Smoking Tobacco: Never Assessed Sex and Gender Information Value Date Recorded Sex Assigned at Male 07/30/2022 10:14 AM EDT Legal Sex Male 10:14 AM EDT Gender Identity Male 07/30/2022 10:14 AM EDT Sexual Orientation Straight 07/30/2022 10 :14 AM EDT documented as of this encounter Plan of Treatment Upcoming Encounters Date Type Department Care Team (Late st Contact Info) Description 06/04/2025 1:30 PM EDT Telemedicine [facility] [address] [place] [phone] Rey Travis, PharmD [address] [place] [address] 06/15/2025 10:15 AM EDT Office Visit [facility] [address] [place] [phone] Harley Botello MD [address] [place], [place] [phone] documented as of this encounter Visit Diagnoses Not on filedocumented in this encounter Care Teams Infrastructure Analyst Relationship Specialty Start Date End Date Val Menchaca MD [address] [place] [address] PCP - General Family Medicine 07/30/12 02/10/24 Val Menchaca MD [address] [place] [address] PCP - General Family Medicine 05/12/24 Rey Travis, PharmD [address] [place] [phone] Pharmacist Internal Medicine 02/08/23 02/10/24 Rey Travis, HuongD [address] [place] [phone] Pharmacist Internal Medicine 02/01/25 documented as of this encounter
--- OUTSIDE RECORDS SUMMARY | 2025-05-28 12:47 | XMS_ITS | Clinical Summary ---
Author Organization [facility] ity Address [address] [place] [address] Care Team Providers Care Project Development Coordinator Name Role Phone Unavailable Primary Care Provider Unavailabl e Social History Tobacco Use Types Packs/Day Years Used Date Smoking Tobacco: Never Assessed Sex and Gender Information Value Date Recorded Sex Assigned at Not on file Legal Sex Male 12:37 PM EST Gender Identity Not on file Sexual Orientation Not on file Plan of Treatment Health Maintenance Due Date Last Done Comments DTaP,Tdap,and Td Vaccines (1 - Tdap) 1985 Hepatitis B Vaccines (1 of 3 - 19+ 3-dose series) 1985 Pneumococcal Vaccine: 50+ Ye ars (1 of 1 - PCV) 2016 Zoster Vaccines (1 of 2) 2016 Cholesterol Screening (Lipid Panel) 08/28/2022 Colorectal Cancer Screening: Colonoscopy 08/28/2022 HIV Screening 08/28/2022 Hepatitis C Screening 08/28/2022 Social Influencers of Health Screening 08/28/2022 COVID-19 Vaccine (1 - 2023-2 5 season) 2024 Depression Screening 09/30/2024 Influenza Vaccine (#1) 2025 HIB Vaccines Aged Out No longer eligi ble based on patient's age to complete this topic HPV Vaccines Aged Out No longer eligi ble based on patient's age to complete this topic Hepatitis A Vaccines Aged Out No long er eligible based on patient's age to complete this topic IPV Vaccines Aged Out No longer eligi ble based on patient's age to complete this topic MMR Vaccines Aged Out No longer eligi ble based on patient's age to complete this topic Meningococcal ACWY Vaccine Aged Out N o longer eligible based on patient's age to complete this topic Meningococcal B Vaccine Aged Out No l onger eligible based on patient's age to complete this topic RSV Immunization Patients Un mary 20 months Aged Out No longer eligible b ased on patient's age to complete this topic Varicella Vaccines Aged Out No longer eligible based on patient's age to complete this topic
--- OUTSIDE RECORDS SUMMARY | 2025-05-28 12:48 | XMS_ITS ---
Author Organization [facility] Address [address] [place] [address] Care Team Providers Care Metal Furniture Repairer Name Role Phone Unavailable Primary Care Provider Lydia e [id number] Asthma Program Status:Enrolled (Active) Start date:11/12/2023 Enrollment date:11/12/2023 Case Team Name Relationship Phone Deshaun Bravo PharmD(Responsible Staff) [phone] Continued Care and Services Coordination
--- OUTSIDE RECORDS SUMMARY | 2025-05-28 12:48 | XMS_ITS | Clinical Summary ---
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 Name Role Phone Val Menchaca MD Primary Care Provider [phone] Rey Travis PharmD Unavailable [phone] Allergies Active Allergy Reactions Criticality Noted Date Comments [place] Anaphylaxis High 04/08/2023 Ct reported Daucus [place] Anaphylaxis High 05/13/2023 Kiwi Extract Anaphylaxis High 04/08/2023 Ct reported Pear Anaphylaxis High 04/08/2023 Ct reported [place] Pulp Anaphylaxis High 04/08/2023 Ct reported Sertraline 06/21/2015 Medications * This document contains information received from the source organization and may not represent a complete record from that organization. Respiratory Therapy Supplies (Nebulizer/Tubi ng/Mouthpiece) kitIndications: COPD with asthma ([facility]) Use with nebulizer 2 kit 1 023 Active venlafaxine XR (Effexor XR) 150 MG 24 hr capsuleIndicati ons:Depressive disorder Take 1 capsule (150 mg) by mouth in the morning. Do not crush or chew. 30 capsule 11 023 Active venlafaxine XR (Effexor XR) 37.5 MG 24 hr capsuleIndicati ons:Depressive disorder Take 1 capsule (37.5 mg) by mouth in the morning. Do not crush or chew. 30 capsule 023 Active naloxone (Narcan) 4 mg/0.1 mL nasal spray Administer 4 mg into affected nostril(s) if needed. 023 Active topiramate (Topamax) 100 MG tablet Take 100 mg by mouth at bedtime. Active cyanocobalamin (Vitamin B-12) 1000 MCG tablet Take 1 tablet (1,000 mcg) by mouth at bedtime. 90 tablet 3 Active FREESTYLE LITE test strip Check blood sugar once daily and as needed 100 each 025 Active Semaglutide, 2 MG/DOSE, (Ozempic, 2 MG/DOSE,) 8 MG/3ML solution pen-injector Inject 0.75 mL (2 mg) under the skin 1 (one) time per week. 3 mL Active ibuprofen 600 MG tablet TAKE 1 TABLET BY MOUTH EVERY 6 HOURS NEEDED FOR MILD PAIN, FOR FEVER OR FOR HEADACHE 40 tablet 1 Active acetaminophen (Tylenol 8 Hour) 650 MG ER tablet TAKE 1 TABLET BY MOUTH EVERY 8 HOURS NEEDED FOR MILD PAIN, DO NOT BREAK, CRUSH, DISSOLVE OR CHEW 40 tablet 1 025 Active metFORMIN XR (Glucophage-XR) 500 MG 24 hr tabletIndicatio ns:Type 2 diabetes mellitus with hyperglycemia, without long-term current use of insulin ([facility]) TAKE 2 TABLETS BY MOUTH TWICE DAILY IN THE MORNING AND EVENING WITH FOOD 360 tablet 3 Active rosuvastatin (Crestor) 10 MG tablet Take 1 tablet (10 mg) by mouth Once per day. 90 tablet 3 025 2025 Active TRUEplus Lancets 33G miscIndications :Type 2 diabetes mellitus with hyperglycemia, without long-term current use of insulin ([facility]) TEST BLOOD SUGAR ONCE DAILY AND NEEDED 100 each Active Blood Pressure kitIndications: Primary hypertension Use to monitor blood pressure daily as directed. 1 kit Active nicotine polacrilex (Nicotine Mini) 4 MG lozengeIndicati ons:Tobacco use Dissolve 1 lozenge in the mouth every 1-2 hours as needed for cravings. No more than 20 lozenges daily. 144 lozenge Active cetirizine (ZyrTEC) 10 MG tablet TAKE 1 TABLET BY MOUTH EVERY MORNING 90 tablet 1 025 Active Ventolin HFA 108 (90 Base) MCG/ACT inhaler INHALE 2 PUFFS BY MOUTH EVERY 4 HOURS NEEDED FOR WHEEZING OR SHORTNESS OF BREATH 18 g 1 025 Active fluticasone (Flonase) 50 MCG/ACT nasal spray INSTILL 2 SPRAYS IN EACH NOSTRIL ONCE DAILY 48 g 1 025 Active senna (Senokot) 8.6 MG tabletIndicatio ns:Uncomplicate d opioid dependence (CMS/HCC) TAKE 1 TO 2 TABLETS BY MOUTH AT BEDTIME NEEDED FOR CONSTIPATION 180 tablet 1 025 Active tadalafil (Cialis) 20 MG tablet TAKE 1 TABLET BY MOUTH ONCE DAILY NEEDED. TAKE MORE THAN 30 MINUTES BEFORE SEX NO MORE THAN 1 TABLET PER DAY 10 tablet 3 025 Active Buprenorphine HCl-Naloxone HCl (Suboxone) 8-2 MG SL filmIndications :Uncomplicated opioid dependence (CMS/HCC) Place 1 Film under the tongue 2 times daily. 56 Film 1 025 2024 Active lisinopril 10 MG tablet Take 10 mg by mouth Once per day. 025 Active nicotine (Nicoderm, Step 2) 14 MG/24HR patch APPLY 1 PATCH TOPICALLY A DIARIO 025 Active docusate sodium (Colace) 100 MG capsuleIndicati ons:Uncomplicat ed opioid dependence (CMS/HCC) TAKE 1 TO 2 CAPSULES EVERY DAY AT BEDTIME NEEDED FOR CONSTIPATION 180 capsule 1 025 Active EPINEPHrine (Epipen) 0.3 MG/0.3ML injection syringe Administer 1 dose for severe allergy reaction. Call health intensive care anaesthetist / EMS for further evaluation and instruction. 1 each 1 025 Active EPINEPHrine (Epipen) 0.3 MG/0.3ML injection syringe 0.3 mg. 023 2024 Discontinued(R eorder (will not trigger notification to Pharmacy)) lisinopril 20 MG tablet Take 1 tablet (20 mg) by mouth in the morning. 90 tablet 3 025 2024 Discontinued(D iscontinued by another clinician) docusate sodium (Colace) 100 MG capsuleIndicati ons:Uncomplicat ed opioid dependence (CMS/HCC) TAKE 1 TO 2 CAPSULES BY MOUTH AT BEDTIME NEEDED CONSTIPATION 180 capsule 1 025 2024 Discontinued dilTIAZem CD (Cardizem CD) 120 MG 24 hr capsule TAKE 1 CAPSULE BY MOUTH EVERY MORNING 90 capsule 1 025 2024 Discontinued(D iscontinued by another clinician) nicotine (Nicoderm CQ) 21 MG/24HR patchIndication s:Tobacco use Place 1 patch on the skin 1 (one) time each day at the same time. 21 patch 1 025 2024 Discontinued(D iscontinued by another clinician) Active Problems Problem Noted Date Diagnosed Date Chronic back pain 05/24/2025 Assessment & Plan (05/24/2025 8:31 AM EDT): - judicious use of analgesics - recommended to try physical therapy Erectile dysfunction 01/01/2025 Assessment & Plan (04/19/2025 4:12 PM EDT): - multifactorial: chronic medical conditions; meds; age - Prescribed tadalafil 20 mg daily as needed - normal PSA level in Jun 2024 - will consider referring to urologist if he requests higher dose Assessment & Plan (01/01/2025 3:40 PM EDT): - multifactorial: chronic medical conditions; meds; age - patient demands an increase in tadalafil dose, increased dose sent. Informed him that he is on max dose. - normal PSA level in Jun 2024 - will consider referring to urologist if he requests higher dose Throat discomfort 05/15/2024 Bilateral cataracts 09/13/2023 Obesity 11/12/2022 Assessment & Plan (04/19/2025 4:07 PM EDT): -Hx gastric bypass -on GLP1RA - Continue working on lifestyle modifications. - Generic advice as below. Tailor for your unique body, character, and specific condition. Dietary Recommendations: Fruits, vegetables, whole grains, protein foods, and fat-free or low-fat dairy products are healthy choices. Eat different types of protein foods in your diet. This can include seafood, lean meats, poultry, beans, peas, lentils, nuts, seeds, soy products, and eggs. Limit foods and beverages higher in added sugars, saturated fat, and sodium. Exercise Recommendations: At least 150 minutes of moderate-intensity physical activity per week, or an equivalent combination of moderate- and vigorous-intensity activity Assessment & Plan (01/01/2025 3:42 PM EDT): -Hx gastric bypass -on GLP1RA - Continue working on lifestyle modifications. - Generic advice as below. Tailor for your unique body, character, and specific condition. Dietary Recommendations: Fruits, vegetables, whole grains, protein foods, and fat-free or low-fat dairy products are healthy choices. Eat different types of protein foods in your diet. This can include seafood, lean meats, poultry, beans, peas, lentils, nuts, seeds, soy products, and eggs. Limit foods and beverages higher in added sugars, saturated fat, and sodium. Exercise Recommendations: At least 150 minutes of moderate-intensity physical activity per week, or an equivalent combination of moderate- and vigorous-intensity activity Assessment & Plan (11/18/2022 4:47 AM EST): -Hx gastric bypass -Work on lifestyle modifications Tobacco use 09/01/2022 Assessment & Plan (05/24/2025 8:34 AM EDT): -Started smoking at age 38 -Pt stopped smoking 3 years ago, then restarted recently -Continue his current effort to stay in the maintenance stage -patient does not have 20-pack years smoking history. He does not qualify for chest CT at this time. Assessment & Plan (04/08/2025 9:24 PM EDT): -Started smoking at age 38 -Pt stopped smoking 3 years ago, then restarted recently -Continue his current effort to stay in the maintenance stage -patient does not have 20-pack years smoking history. He does not qualify for chest CT at this time. Assessment & Plan (01/01/2025 3:46 PM EDT): -Started smoking at age 38 -Pt stopped smoking 3 years ago, then restarted recently -Continue his current effort to stay in the maintenance stage -patient does not have 20-pack years smoking history. He does not qualify for chest CT at this time. Assessment & Plan (10/19/2024 11:15 AM EST): -Started smoking at age 38 -Pt stopped smoking 3 years ago, then restarted recently -Continue his current effort to stay in the maintenance stage -patient does not have 20-pack years smoking history. He does not qualify for chest CT at this time. Assessment & Plan (07/01/2024 11:52 AM EDT): -Pt stopped smoking 3 years ago -Continue his current effort to stay in the maintenance stage -patient does not have 20-pack years smoking history. He does not qualify for chest CT. Assessment & Plan (02/06/2023 4:24 PM EDT): -Pt stopped smoking 10 months ago -Continue his current effort to stay in the maintenance stage -Consider lung cancer screening Assessment & Plan (11/18/2022 4:45 AM EST): -Pt stopped smoking 7 months ago -Continue his current effort to stay in the maintenance stage Metabolic dysfunction-associ ated steatotic liver disease (MASLD) 01/22/2019 Assessment & Plan (05/24/2025 8:36 AM EDT): - Last liver test: 05/06/24 - Last US November [address] [facility] showed severe hepatic steatosis - FIB4 index 1.39, less likely cirrhosis - GI: [place] [facility] [place] Upcoming appointment. If GI does not order US, we can update US/elastography - continue working on lifestyle modifications - continue surveillance study Assessment & Plan (04/19/2025 4:11 PM EDT): - Last liver test: 05/06/24 - Last US November [address] [facility] showed severe hepatic steatosis - FIB4 index 1.39, less likely cirrhosis - GI: [place] [facility] [place] Upcoming appointment. If GI does not order US, we can update US/elastography - continue working on lifestyle modifications - continue surveillance study Assessment & Plan (12/29/2024 12:57 PM EDT): - Last liver test: 05/06/24 - Last US November [address] [facility] showed severe hepatic steatosis - FIB4 index 1.39, less likely cirrhosis - GI: [place] [facility] [place] - continue working on lifestyle modifications - continue surveillance study Assessment & Plan (10/14/2024 1:02 PM EST): - Last liver test: 05/06/24 - Last US November [address] [facility] showed severe hepatic steatosis - FIB4 index 1.39, less likely cirrhosis - GI: [place] [facility] [place] - continue working on lifestyle modifications - continue surveillance study Assessment & Plan (07/02/2024 11:13 AM EDT): - Last liver test: 05/06/24 - Last US November [address] [facility] showed severe hepatic steatosis - FIB4 index 1.39, less likely cirrhosis - GI: [place] [facility] [place] - continue working on lifestyle modifications - continue surveillance study Gallstone 10/09/2017 Assessment & Plan (01/01/2025 3:30 PM EDT): - hospitalized in [facility] for abdominal pain and possible biliary obstruction in November 2020. Patient exhibited alcohol withdrawal symptoms and left AMA. - last US in November 2020 showed: No evidence of acute cholecystitis. Multiple gallstones with a nonmobile stone at the neck. No pericholecystic fluid or wall thickening. Mild intrahepatic and extrahepatic ductal dilatation with the common duct measuring up to 1.2 cm. - asymptomatic today and he has not had alcohol for 3 years. Assessment & Plan (07/02/2024 11:16 AM EDT): - hospitalized in [facility] for abdominal pain and possible biliary obstruction in November 2020. Patient exhibited alcohol withdrawal symptoms and left AMA. - last US in November 2020 showed: No evidence of acute cholecystitis. Multiple gallstones with a nonmobile stone at the neck. No pericholecystic fluid or wall thickening. Mild intrahepatic and extrahepatic ductal dilatation with the common duct measuring up to 1.2 cm. - asymptomatic today and he has not had alcohol for 3 years. Dyslipidemia 09/12/2015 Assessment & Plan (05/21/2025 12:24 AM EDT): -current medication: rosuvastatin 10 mg at bedtime -Last Lipid Profile: 07/28/24 -10-year ASCVD risk 28% -Consider intensifying statin therapy. Assessment & Plan (04/19/2025 4:06 PM EDT): -current medication: rosuvastatin 10 mg at bedtime -Last Lipid Profile: 07/28/24 -10-year ASCVD risk 28% -Consider intensifying statin therapy. Assessment & Plan (01/01/2025 3:41 PM EDT): -current medication: rosuvastatin 10 mg at bedtime -Last Lipid Profile: 07/28/24 -Consider intensifying statin therapy. Pravastatin was chosen while he was still drinking alcohol and had elevated LFT. His LFT is normal. Will discuss in near future. Assessment & Plan (10/19/2024 11:17 AM EST): -current medication: pravastatin 80 mg at bedtime -Last Lipid Profile: 07/28/24 -Consider intensifying statin therapy. Pravastatin was chosen while he was still drinking alcohol and had elevated LFT. His LFT is normal. Will discuss in near future. Assessment & Plan (07/01/2024 11:23 AM EDT): -current medication: pravastatin 80 mg qhs -Last Lipid Profile: 11/13/22 TC 217, TG 129, HDL 46, LDL 146. -Consider intensifying statin therapy. Pravastatin was chosen while he was still drinking alcohol and had elevated LFT. His LFT is normal. Will discuss in near future. Assessment & Plan (02/06/2023 4:21 PM EDT): -current medication: pravastatin 80 mg qhs -Last Lipid Profile: 11/13/22 TC 217, TG 129, HDL 46, LDL 146. -Consider intensifying statin therapy. Pravastatin was chosen while he was still drinking alcohol and had elevated LFT. His LFT is normal. Will discuss in near future. Assessment & Plan (11/18/2022 4:53 AM EST): -current medication: pravastatin 80 mg qhs -last lipid profile: November 2021 -Update lab; consider intensifying statin since he stopped drinking Primary hypertension 09/12/2015 Assessment & Plan (05/24/2025 8:33 AM EDT): -Goal BP < 130/80 per ACC/AHA guideline, suboptimal control today -Previously co-managed with our pharmacist through [facility] -Previous cryptographic clerk: Sammy Goldstein. No recent visit. -Recently discontinued diltiazem 120 mg daily due to hypotension and ASHLYN -Previously taking lisinopril 20 mg daily, but currently 10 mg daily due to recent hypotension and ASHLYN; plan to resume lisinopril 20 mg daily after lab -04/16/17 Normal nuclear stress test. -04/24/17 Echo LVEF 60-65% -Discussed about the importance of lifestyle modification and medication adherence. -Encouraged to increase physical activity / exercise -Continue working on smoking cessation Assessment & Plan (04/19/2025 4:03 PM EDT): -Goal BP < 130/80 per ACC/AHA guideline, suboptimal control today -Previously co-managed with our pharmacist through [facility] -Previous cryptographic clerk: Sammy Goldstein. No recent visit. -Continue diltiazem 120 mg daily. -Continue lisinopril 20 mg daily -04/16/17 Normal nuclear stress test. -04/24/17 Echo LVEF 60-65% -Discussed about the importance of lifestyle modification and medication adherence. -Encouraged to increase physical activity / exercise -Continue working on smoking cessation Assessment & Plan (12/29/2024 12:56 PM EDT): -Goal BP < 140/90, BP per JNC-8, < 130/80 per ACC/AHA guideline, suboptimal control today -Previously co-managed with our pharmacist through [facility] -Previous cryptographic clerk: Sammy Goldstein. No recent visit. -Continue diltiazem 120 mg daily. -Continue lisinopril 20 mg daily -04/16/17 Normal nuclear stress test. -04/24/17 Echo LVEF 60-65% -Discussed about the importance of lifestyle modification and medication adherence. -Encouraged to increase physical activity / exercise -Continue working on smoking cessation -Treatment Hx: Discontinued lisinopril, restarted by previous PCP -Upcoming appt for [facility] Assessment & Plan (10/19/2024 11:07 AM EST): -Goal BP < 140/90, BP per JNC-8, < 130/80 per ACC/AHA guideline, suboptimal control today -Previously co-managed with our pharmacist through [facility] -Previous cryptographic clerk: Sammy Goldstein. No recent visit. -Continue diltiazem 120 mg daily. -Continue lisinopril 20 mg daily -04/16/17 Normal nuclear stress test. -04/24/17 Echo LVEF 60-65% -Discussed about the importance of lifestyle modification and medication adherence. -Encouraged to increase physical activity / exercise -Continue working on smoking cessation -Treatment Hx: Discontinued lisinopril, restarted by previous PCP -Upcoming appt for [facility] Assessment & Plan (07/01/2024 11:47 AM EDT): -Goal BP < 140/90, BP per JNC-8, < 130/80 per ACC/AHA guideline, suboptimal control today -Previously co-managed with our pharmacist through [facility] -Previous cryptographic clerk: Sammy Goldstein. No recent visit. -Continue diltiazem 120 mg daily. -Continue lisinopril 20 mg daily -04/16/17 Normal nuclear stress test. -04/24/17 Echo LVEF 60-65% -Discussed about the importance of lifestyle modification and medication adherence. -Encouraged to increase physical activity / exercise -Treatment Hx: Discontinued lisinopril, restarted by previous PCP -Upcoming appt for [facility] -Follow up in 3 mo or sooner if any problem arises Assessment & Plan (02/06/2023 4:18 PM EDT): -Goal BP < 140/90, BP per JNC-8, < 130/80 per ACC/AHA guideline, suboptimal control today -Co-managed with our pharmacist through [facility] -Previous cryptographic clerk: Sammy Goldstein. No recent visit. -Continue diltiazem 120 mg daily. -Consider adding ARB (or SGLT-2 inhibitor) -04/16/17 Normal nuclear stress test. -04/24/17 Echo LVEF 60-65% -Discussed about the importance of lifestyle modification and medication adherence. -Encouraged to increase physical activity / exercise -Treatment Hx: Discontinued lisinopril -Upcoming appt for [facility] -Follow up in 3 mo or sooner if any problem arises Assessment & Plan (11/18/2022 4:42 AM EST): -Goal BP < 140/90, BP per JNC-8, < 130/80 per ACC/AHA guideline, suboptimal control today -Emergency Man: Sammy Goldstein, previously seen. No recent visit. -Continue diltiazem 120 mg daily. -Consider adding ARB (or SGLT-2 inhibitor) -04/16/17 Normal nuclear stress test. -04/24/17 Echo LVEF 60-65% -Discussed about the importance of lifestyle modification and medication adherence. -Encouraged to increase physical activity / exercise -Treatment Hx: Discontinued lisinopril -Follow up in 3 mo or sooner if any problem arises Iron deficiency anemia 09/12/2015 Assessment & Plan (07/01/2024 11:48 AM EDT): -previously Dx while drinking alcohol -no longer on iron supplementatioin -recheck lab Assessment & Plan (11/18/2022 4:44 AM EST): -previously Dx while drinking alcohol -no longer on iron supplementatioin -recheck lab Vitamin B12 deficiency (dietary) anemia 09/12/20 15 Assessment & Plan (07/01/2024 11:49 AM EDT): -s/p gastric bypass -previously drinking alcohol -continue supplementation -check lab Assessment & Plan (02/06/2023 9:51 AM EDT): -previously drinking alcohol -continue supplementation -check lab Assessment & Plan (11/18/2022 4:43 AM EST): -previously drinking alcohol -continue supplementation -check lab 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 Treated with azithromycin, prednisone -Last hospitalization in Jun 2020, Rx cefuroxime and azithromycin -History of intubation, about 10 times -Exacerbation frequency 5-6 times per year when he was smoking, but less since he stopped smoking -He stopped smoking in Oct 2021 - Jul 2024. Restarted lately. -Lat steroid use was May 2021 with antibiotic. -Last CT scan in 2019 showed bronchial wall thickening, but no nodule or mass -Patient states that he was evaluated by automotive parts salesperson when he was receiving care in another facility. Patient states his medications were changed. -Continue Advair 500/50 mcg one puff twice a day as maintenance, and rinse mouth after use -Previously on tiotropium (Spiriva), however it was discontinued. Consider restarting it if frequent exacerbation. -Previously on Singulair, however it was discontinued by previous PCP -Continue albuterol HFA prn as rescue -Continue DuoNeb prn as rescue -Continue working on smoking cessation Assessment & Plan (04/19/2025 4:13 PM EDT): -Most recent exacerbation, 12/29/24, mild-moderate. Treated with azithromycin, prednisone -Last hospitalization in Jun 2020, Rx cefuroxime and azithromycin -History of intubation, about 10 times -Exacerbation frequency 5-6 times per year when he was smoking, but less since he stopped smoking -He stopped smoking in Oct 2021 - Jul 2024. Restarted lately. -Lat steroid use was May 2021 with antibiotic. -Last CT scan in 2019 showed bronchial wall thickening, but no nodule or mass -Patient states that he was evaluated by automotive parts salesperson when he was receiving care in another facility. Patient states his medications were changed. -Continue Advair 500/50 mcg one puff twice a day as maintenance, and rinse mouth after use -Previously on tiotropium (Spiriva), however it was discontinued. Consider restarting it if frequent exacerbation. -Previously on Singulair, however it was discontinued by previous PCP -Continue albuterol HFA prn as rescue -Continue DuoNeb prn as rescue -Continue working on smoking cessation Assessment & Plan (01/01/2025 3:44 PM EDT): -Most recent exacerbation, 12/29/24 today, mild-moderate. Will treat with azithromycin, prednisone -Last hospitalization in Jun 2020, Rx cefuroxime and azithromycin -History of intubation, about 10 times -Exacerbation frequency 5-6 times per year when he was smoking, but less since he stopped smoking -He stopped smoking in Oct 2021 - Jul 2024. Restarted lately. -Lat steroid use was May 2021 with antibiotic. -Last CT scan in 2019 showed bronchial wall thickening, but no nodule or mass -Patient states that he was evaluated by automotive parts salesperson when he was receiving care in another facility. Patient states his medications were changed. -Continue Advair 500/50 mcg one puff twice a day as maintenance, and rinse mouth after use -Previously on tiotropium (Spiriva), however it was discontinued. Consider restarting it if frequent exacerbation. -Previously on Singulair, however it was discontinued by previous PCP -Continue albuterol HFA prn as rescue -Continue DuoNeb prn as rescue -Continue working on smoking cessation Assessment & Plan (10/19/2024 11:06 AM EST): -Most recent exacerbation -August 2024, mild. -Last hospitalization in Jun 2020, Rx cefuroxime and azithromycin -History of intubation, about 10 times -Exacerbation frequency 5-6 times per year when he was smoking, but less since he stopped smoking -He stopped smoking in Oct 2021 - Jul 2024. Restarted lately. -Lat steroid use was May 2021 with antibiotic. -Last CT scan in 2019 showed bronchial wall thickening, but no nodule or mass -Patient states that he was evaluated by automotive parts salesperson when he was receiving care in another facility. Patient states his medications were changed. -Continue Advair 500/50 mcg one puff twice a day as maintenance, and rinse mouth after use -Previously on tiotropium (Spiriva), however it was discontinued. Consider restarting it if frequent exacerbation. -Previously on Singulair, however it was discontinued by previous PCP -Continue albuterol HFA prn as rescue -Continue DuoNeb prn as rescue -Continue working on smoking cessation Assessment & Plan (07/01/2024 11:45 AM EDT): -Most recent exacerbation - May 2021. -Last hospitalization in Jun 2020, Rx cefuroxime and azithromycin -History of intubation, about 10 times -Exacerbation frequency 5-6 times per year when he was smoking, but less since he stopped smoking -He stopped smoking in Oct 2020. -Lat steroid use was May 2021 with antibiotic. -Last CT scan in 2019 showed bronchial wall thickening, but no nodule or mass -Patient states that he was evaluated by automotive parts salesperson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 assay.The [employer] HIV Ag/Ab Combo assay result andsupplemental assay results should be interpreted inconjunction with the patient's clinical presentation,history and other laboratory results. If the results areinconsistent with clinical evidence, additional testing issuggested to confirm the result. Blood Venous blood specimen / Unknown 05/06/2024 12:12 PM EDT 05/06/2024 1:09 PM EDT us Harley Botello MD LAB BLOOD ORDERABLES Final Res ult [facility] [address] [place] [address] [phone] from Last 3 Months or Most Recently Relevant to Health Maintenance [place] [address] [place] [address] C3 Care Teams Steam Boiler Fireman Relationship Specialty Start Date End Date Val Menchaca MD [address] [place] [address] PCP - General Family Medicine 05/12/24 Rey Travis, uHongD [address] [place] [address] Pharmacist Internal Medicine 02/01/25
--- OUTSIDE RECORDS SUMMARY | 2025-05-28 12:48 | XMS_ITS | Encounter Summary ---
Author Organization [facility] Address [address] [place] [address] 7t [place] [address] Care Team Providers Care Otm Consultant Name Role Phone Val Menchaca MD Primary Care Provider [phone] Rey Travis PharmD Unavailable [phone] Val Menchaca MD Primary Care Provider [phone] Rey Travis PharmD Unavailable [phone] Reason for Visit * Reason Comments Med Refill Encounter Details Date Type Department Care Team (Late st Contact Info) Description 05/10/2023 Refill [facility] [address] [place], [place] [phone] Val Menchaca MD [address] [place], [place] [phone] Type 2 diabetes mellitus without complications (CMS/HCC) Social History Tobacco Use Types Packs/Day Years Used Date Smoking Tobacco: Never Passive Smoke Exposure: Never Smokeless Tobacco: Never [...] Info) Description 06/04/2025 1:30 PM EDT Telemedicine [facility] [place] [address] Rey Travis, [place] [address] 06/15/2025 10:15 AM EDT Office Visit [facility] [place] [address] [place] [address] documented as of this encounter Goals Goal Patient Goal Type Associated Problems Recent Progress Patient-Stated? Author Blood Pressure < 140/90 Blood Pressure 150/86( 025 9:56 AM EDT) No Rey Travis, Raymundo documented as of this encounter Visit Diagnoses Diagnosis Type 2 diabetes mellitus without complications (CMS/HCC) documented in this encounter Additional Health Concerns Assessment Noted Time PHQ-9 Depression Total Score: 0 11/12/19 23 11:22 AM EST documented as of this encounter Care Teams Otm Consultant Relationship Specialty Start Date End [place] [address] PCP - General Family Medicine 07/30/12 02/10/24 [place] [address] PCP - General Family Medicine 05/12/24 Rey Travis[place] [address] Pharmacist Internal Medicine 02/08/23 02/10/24 Rey Travis, [place] [address] Pharmacist Internal Medicine 02/01/25 documented as of this encounter
--- OUTSIDE RECORDS SUMMARY | 2025-05-28 12:48 | XMS_ITS | Encounter Summary ---
Author Organization [employer] [facility] Address [address] [place] [address] 7t [place] [address] Care Team Providers Care Coke Oven Mason Name Role Phone Val Menchaca MD Primary Care Provider [phone] Rey Travis PharmD Unavailable [phone] Val Menchaca MD Primary Care Provider [phone] Rey Travis PharmD Unavailable [phone] Reason for Visit * Reason Comments Med Refill Encounter Details Date Type Department Care Team (Late Contact Info) Description 05/10/2023 Refill [facility] 230 [place], [place] [phone] Val Menchaca MD [address] [place], [place] [phone] Social History Tobacco Use Types Packs/Day Years [...] Encounters Date Type Department Care Team (Late Contact Info) Description 06/04/2025 1:30 PM EDT Telemedicine [facility] [address] [place] [address] Rey Travis[place] [address] 06/15/2025 10:15 AM EDT Office Visit [facility] [place] [address] Harley Botello MD [facility] [place] [address] documented as of this encounter Goals Goal [...] documented as of this encounter Care Teams Coke Oven Mason Relationship Specialty Start Date End Date Val Menchaca MD [facility] [place] [address] PCP - General Family Medicine 07/30/12 02/10/24 Val Menchaca MD [facility] [place] [address] PCP - General Family Medicine 05/12/24 Rey Travis, PharmD [facility] [place] [address] Pharmacist Internal Medicine 02/08/23 02/10/24 Rey Travis PharmD [facility] [place] [address] Pharmacist Internal Medicine 02/01/25 documented as of this encounter
--- OUTSIDE RECORDS SUMMARY | 2025-05-28 12:48 | XMS_ITS | Encounter Summary ---
Author Organization [employer] Address [address] [facility] 7t [place] [address] Care Team Providers Care Tax Services Professional Name Role Phone Val Menchaca MD Primary Care Provider [phone] Rey Travis PharmD Unavailable [phone] Reason for Visit * Reason Onset Date Comments Labs Only 05/24/2025 Encounter Details Date Type Department Care Team ([facility] st Contact Info) Description 05/24/2025 Telephone [facility] [address] [place], [place] [phone] Val Menchaca MD [address] [place] [address] Labs Only Social History Tobacco Use Types Packs/Day Years Used Date Smoking Tobacco: Every Day Cigarettes 0.5 14 Started: 2006; Last attempted to quit: 2020 Passive Smoke Exposure: Current Smokeless Tobacco: Never Alcohol Use Standard Drinks/Week [...] AM EDT documented as of this encounter Miscellaneous Notes * Telephone Encounter - Valarie Fernández MA - 05/24/2025 1:56 PM EDT [facility] hope call pt (please see message below) * Telephone Encounter - Valarie Fernández MA - 05/24/2025 1:55 PM EDT ----- Message from Val Menchaca MD sent at 05/24/2025 8:36 AM EDT ----- Please ask him to get his lab done so that we can adjust his blood pressure medication. Thank you. documented in this encounter Plan of Treatment Upcoming Encounters Date Type Department Care Team ([facility] st Contact Info) Description 06/04/2025 1:30 PM EDT Telemedicine [facility] [address] [place] [address] Rey Travis, PharmD [address] [place] [address] 06/15/2025 10:15 AM EDT Office Visit [facility] [address] [place] [address] Harley Botello MD [address] [place] [address] documented as of this encounter Goals Goal Patient Goal Type Associated Problems Recent Progress Patient-Stated? Author Blood Pressure < 140/90 Blood Pressure 150/86( 025 9:56 AM EDT) No Rey Travis, PharmD documented as of this encounter Visit Diagnoses Not on filedocumented in this encounter Additional Health Concerns Assessment Noted Time PHQ-9 Depression Total Score: 17 025 9:38 AM EDT documented as of this encounter Care Teams Tax Services Professional Relationship Specialty Start Date End Date Val Menchaca MD [address] [place] [address] PCP - General Family Medicine 05/12/24 Rey Travis, PharmD [address] [place] [address] Pharmacist Internal Medicine 02/01/25 documented as of this encounter
--- OUTSIDE RECORDS SUMMARY | 2025-05-28 12:48 | XMS_ITS | Encounter Summary ---
Author Organization [employer] [facility] Address [address] [place] [address] 7t [place] [address] Care Team Providers Care Port Warden Name Role Phone Val Menchaca MD Primary Care Provider [phone] Rey Travis PharmD Unavailable [phone] Val Menchaca MD Primary Care Provider [phone] Rey Travis PharmD Unavailable [phone] Reason for Visit * Reason Comments Med Refill Encounter Details Date Type Department Care Team (Late st Contact Info) Description 06/13/2023 Refill [facility] 230 [place], [place] [phone] Val Menchaca MD 230 [place], [place] [phone] Depressive disorder Social History Tobacco Use Types Packs/Day Years [...] Info) Description 06/04/2025 1:30 PM EDT Telemedicine [facility] [place] [address] Rey Travis, [place] [address] 06/15/2025 10:15 AM EDT Office Visit [facility] [place] [address] [place] [address] documented as of this encounter Goals Goal Patient Goal Type Associated Problems Recent Progress Patient-Stated? Author Blood Pressure < 140/90 Blood Pressure 150/86( 025 9:56 AM EDT) No Rey Travis, PharmD documented as of this encounter Visit Diagnoses Diagnosis Depressive disorder Depressive disorder, not elsewhere classified documented in this encounter Additional Health Concerns Assessment Noted Time PHQ-9 Depression Total Score: 0 11/12/19 23 11:22 AM EST documented as of this encounter Care Teams Port Warden Relationship Specialty Start Date End Date [place] [address] PCP - General Family Medicine 07/30/12 02/10/24 Val Menchaca MD [place] [address] PCP - General Family Medicine 05/12/24 Rey [place] [address] Pharmacist Internal Medicine 02/08/23 02/10/24 [place] [address] Pharmacist Internal Medicine 02/01/25 documented as of this encounter
--- OUTSIDE RECORDS SUMMARY | 2025-05-28 12:48 | XMS_ITS | Encounter Summary ---
Author Organization [employer] Address [address] [facility] 7t [place] [address] Care Team Providers Care Feed Research Technician Name Role Phone Val Menchaca MD Primary Care Provider [phone] Rey Travis PharmD Unavailable [phone] Reason for Visit * Reason Comments Med Refill Encounter Details Date Type Department Care Team (Late st Contact Info) Description 01/07/2025 Refill [facility] 230 [place], [place] [phone] Bella Mcdaniel DO [address] [place], [place] [phone] Social History Tobacco Use Types Packs/Day Years Used Date Smoking Tobacco: Some Days Cigarettes 0.5 14 Started: 2006; Last attempted [...] 06/04/2025 1:30 PM EDT Telemedicine [facility] [address] [place] [address] Rey Travis, Raymundo [address] [place] [address] 06/15/2025 10:15 AM EDT Office Visit [facility] [address] [place] [address] Harley Botello MD [address] [place] [address] documented as of this encounter Goals Goal Patient Goal Type Associated Problems Recent Progress Patient-Stated? Author Blood Pressure < 140/90 Blood Pressure 150/86( 025 9:56 AM EDT) No Rey Travis, PharmD documented as of this encounter Visit Diagnoses Not on filedocumented in this encounter Additional Health Concerns Assessment Noted Time PHQ-9 Depression Total Score: 4 06/30/20 24 10:37 AM EDT documented as of this encounter Care Teams Feed Research Technician Relationship Specialty Start Date End Date Val Menchaca MD [address] [place] [address] PCP - General Family Medicine 05/12/24 Rey Travis, Raymundo [address] [place] [address] Pharmacist Internal Medicine 02/01/25 documented as of this encounter
--- OUTSIDE RECORDS SUMMARY | 2025-05-28 12:48 | XMS_ITS | Encounter Summary ---
Author Organization [employer] [facility] Address [address] [place] [address] 7t [place] [address] Care Team Providers Care Hydrostatic Tester Name Role Phone Val Menchaca MD Primary Care Provider [phone] Rey Travis PharmD Unavailable [phone] Val Menchaca MD Primary Care Provider [phone] Rey Travis PharmD Unavailable [phone] Reason for Visit * Reason Comments Med Refill Encounter Details Date Type Department Care Team (Late st Contact Info) Description 05/07/2023 Refill [facility] 230 [place], [place] [phone] Val Menchaca MD 230 [place], [place] [phone] Type 2 diabetes mellitus without complications (CMS/HCC) [...] Info) Description 06/04/2025 1:30 PM EDT Telemedicine [facility] [place] [address] Rey Travis, [place] [address] 06/15/2025 10:15 AM EDT Office Visit [facility] [place] [address] [place] [address] documented as of this encounter Goals Goal [...] documented as of this encounter Care Teams Hydrostatic Tester Relationship Specialty Start Date End [place] [address] PCP - General Family Medicine 07/30/12 02/10/24 [place] [address] PCP - General Family Medicine 05/12/24 Rey Travis[place] [address] Pharmacist Internal Medicine 02/08/23 02/10/24 Rey Travis, [place] [address] Pharmacist Internal Medicine 02/01/25 documented as of this encounter
--- OUTSIDE RECORDS SUMMARY | 2025-05-28 12:48 | XMS_ITS | Encounter Summary ---
Author Organization [email or web address] Address [address] [facility] 7t [place] [address] Care Team Providers Care Mural Artist Name Role Phone Val Menchaca MD Primary Care Provider [phone] Rey Travis PharmD Unavailable [phone] Encounter Details Date Type Department Care Team ([facility] st Contact Info) Description 03/16/2025 Orders Only [facility] 230 [place], [place] [phone] Provider, MD Annette Social History Tobacco Use Types Packs/Day Years [...] Info) Description 06/04/2025 1:30 PM EDT Telemedicine [facility] [address] [place] [address] Rey Travis PharmD [address] [place] [address] 06/15/2025 10:15 AM EDT Office Visit [facility] [address] [place] [address] Harley Botello MD [address] [place] [address] documented as of this encounter Goals Goal Patient Goal Type Associated Problems Recent Progress Patient-Stated? Author Blood Pressure < 140/90 Blood Pressure 150/86( 025 9:56 AM EDT) No Rey Travis, PharmD documented as of this encounter Procedures Procedure Name Priority Date/Time Associated Diagnosis Comments DIABETES EYE EXAM Routine 03/12/2025 12:04 PM EDT documented in this encounter Results * Diabetes Eye Exam (03/12/2025 12:04 PM EDT) us Historical Provider HEALTH MAINTENANCE Final Result documented in this encounter Visit Diagnoses Not on filedocumented in this encounter Additional Health Concerns Assessment Noted Time PHQ-9 Depression Total Score: 4 06/30/20 24 10:37 AM EDT documented as of this encounter Care Teams Mural Artist Relationship Specialty Start Date End Date Val Menchaca MD [address] [place] [address] PCP - General Family Medicine 05/12/24 Rey Travis, Raymundo [address] [place] [address] Pharmacist Internal Medicine 02/01/25 documented as of this encounter
--- OUTSIDE RECORDS SUMMARY | 2025-05-28 12:48 | XMS_ITS | Encounter Summary ---
Author Organization [employer] [facility] Address [address] [place] [address] 7t [place] [address] Care Team Providers Care Roller Picker Name Role Phone Val Menchaca MD Primary Care Provider [phone] Rey Travis PharmD Unavailable [phone] Val Menchaca MD Primary Care Provider [phone] Rey Travis PharmD Unavailable [phone] Reason for Visit * Reason Comments Med Refill Encounter Details Date Type Department Care Team (Late st Contact Info) Description 06/27/2023 Refill [facility] 230 [place], [place] [phone] Val Menchaca MD [address] [place], [place] [phone] Depressive disorder Social History Tobacco Use Types [...] Info) Description 06/04/2025 1:30 PM EDT Telemedicine [facility] [place] [address] Rey Travis, [place] [address] 06/15/2025 10:15 AM EDT Office Visit [facility] [place] [address] [place] [address] documented as of this encounter Goals Goal [...] documented as of this encounter Care Teams Roller Picker Relationship Specialty Start Date End Date Val Menchaca [place] [address] PCP - General Family Medicine 07/30/12 02/10/24 Val Menchaca [place] [address] PCP - General Family Medicine 05/12/24 Rey [place] [address] Pharmacist Internal Medicine 02/08/23 02/10/24 [place] [address] Pharmacist Internal Medicine 02/01/25 documented as of this encounter
--- OUTSIDE RECORDS SUMMARY | 2025-05-28 12:48 | XMS_ITS | Encounter Summary ---
Author Organization [facility] Address [address] [place] [address] Care Team Providers Care Nursing Scheduler Name Role Phone Yanely Wan LINDSEY Primary Care Provider [phone] Encounter Details Date Type Department Care Team (Late st Contact Info) Description 04/05/2023 / [facility] [address] [place] [address] Luis Bran [address] [place] [address] Social History Tobacco Use Types Packs/Day Years Used Date Smoking Tobacco: Never Passive Smoke Exposure: Never Smokeless Tobacco: Never Alcohol Use Standard Drinks/Week Comments Never 0 (1 standard drink = 0.6 oz pur e alcohol) Social Connections Answer Date Recorded Social Connections and Isolation 0 04/03/2023 Financial Resource Strain Answer Date R ecorded Financial Resource Strain 0 2022 Stress Answer Date Recorded Stress 0 04/03/2023 Physical Activity Answer Date Recorded Physical Activity 0 04/03/2023 Food Insecurity Answer Date Recorded Food 0 04/03/2023 Transportation Needs Answer Date Record ed Transportation 0 04/03/2023 Housing Stability Answer Date Recorded Housing 0 04/03/2023 Safety and Environment Answer Date Matthew rded Safety 0 04/03/2023 Utilities Answer Date Recorded Utilities 0 04/03/2023 Employment Answer Date Recorded Employment 0 04/03/2023 Sex and Gender Information Value Date Recorded Sex Assigned at Male 05/13/2023 6:34 PM PDT Legal Sex Male 7:23 AM PDT Gender Identity Male 05/13/2023 6:34 PM PDT Sexual Orientation Straight 05/13/2023 6: 34 PM PDT COVID-19 Exposure Response Date Recorded In the last 10 days, have yo u been in contact with someone who was confirmed or suspected to have Coronavirus/COVID-19? No / Unsure 04/05/2023 2:14 PM EDT documented as of this encounter Plan of Treatment Not on file documented as of this encounter Visit Diagnoses Not on filedocumented in this encounter Additional Health Concerns Assessment Noted Time PHQ-9 Depression Total Score: 11 04/05/ 023 1:00 PM PDT documented as of this encounter Care Teams Nursing Scheduler Relationship Specialty Start Date End Date Yanely Wan FNP [address] [place] [address] PCP - General Internal Medicine 04/05/23 06/16/24 documented as of this encounter
--- OUTSIDE RECORDS SUMMARY | 2025-05-28 12:48 | XMS_ITS | Encounter Summary ---
Author Organization [facility] Address [address] [place] [address] Care Team Providers Care Pst Specialist Name Role Phone Yanely Wan LINDSEY Primary Care Provider [phone] Encounter Details Date Type Department Care Team (Late st Contact Info) Description 04/18/2023 / TELEPHONE [facility] [address] [place] [address] Luis Bran [address] [place] [address] Social History Tobacco Use Types Packs/Day Years Used Date Smoking Tobacco: Never Passive Smoke Exposure: Never Smokeless Tobacco: Never Alcohol Use Standard Drinks/Week Comments Never 0 (1 standard drink = 0.6 oz pur e alcohol) Social Connections Answer Date Recorded Social Connections and Isolation 2 04/18/2023 Financial Resource Strain Answer Date R ecorded Financial Resource Strain 2 2022 Stress Answer Date Recorded Stress 1 04/18/2023 Physical Activity Answer Date Recorded Physical Activity 0 04/18/2023 Food Insecurity Answer Date Recorded Food 0 04/03/2023 Transportation Needs Answer Date Record ed Transportation 1 04/18/2023 Housing Stability Answer Date Recorded Housing 99 04/18/2023 Safety and Environment Answer Date Matthew rded [...] suspected to have Coronavirus/COVID-19? No / Unsure 04/11/2023 1:22 PM EDT documented as of this encounter Plan of Treatment Not on file documented as of this encounter Visit Diagnoses Not on filedocumented in this encounter Additional Health Concerns Assessment Noted Time PHQ-9 Depression Total Score: 11 04/05/ 023 1:00 PM PDT documented as of this encounter Care Teams Pst Specialist Relationship Specialty Start Date End Date Yanely Wan FNP [address] [place] [address] PCP - General Internal Medicine 04/05/23 06/16/24 documented as of this encounter
--- OUTSIDE RECORDS SUMMARY | 2025-05-28 12:48 | XMS_ITS | Encounter Summary ---
Author Organization [employer] Address [address] [facility] 7t [place] [address] Care Team Providers Care Shop Repairer Name Role Phone Val Menchaca MD Primary Care Provider [phone] Rey Travis PharmD Unavailable [phone] Reason for Visit * Reason Comments Med Refill Encounter Details Date Type Department Care Team ([facility] st Contact Info) Description 02/21/2024 Refill [facility] [address] [place], [place] [phone] Val Menchaca MD [address] [place], [place] [phone] Social History Tobacco Use Types Packs/Day Years Used Date Smoking Tobacco: Never Passive Smoke Exposure: Never Smokeless Tobacco: Never Alcohol Use Standard Drinks/Week Comments Never 0 (1 standard drink = 0.6 oz pur e alcohol) Depression Answer Date Recorded Patient Health Questionnaire-9 Score 0 11/12/2022 Housing Stability Answer Date Recorded What is your housing situation today? I have teri kan 07/19/[address] you li ve. Do you have problems with any of the following? None of the above 07/19/2023 Food Insecurity Answer Date Recorded Within the past 12 months, y ou worried that your food would run out before you got money to buy more: Never True 07/19/2023 Within the past 12 months,th e food you bought just didn't last and you didn't have enough money to get more: Never True Transportation Answer Date Recorded In the past 12 months, has l ack of transportation kept you from medical appts, meetings, work or from getting things needed for daily living? No 07/19/2023 Utilities Answer Date Recorded In the past 12 months, has t he electric, gas, oil or water company threatened to shut off services in your home? No 07/19/2023 Depression Answer Date Recorded Patient Health Questionnaire-2 [...] Info) Description 06/04/2025 1:30 PM EDT Telemedicine [facility] [address] [place] [phone] Rey Travis PharmD [address] [place] [address] 06/15/2025 10:15 AM EDT Office Visit [facility] [address] [place] [phone] Harley Botello MD [address] [place] [phone] documented as of this encounter Goals Goal Patient Goal Type Associated Problems Recent Progress Patient-Stated? Author Blood Pressure < 140/90 Blood Pressure 150/86( 025 9:56 AM EDT) No Rey Travis PharmD documented as of this encounter Visit Diagnoses Not on filedocumented in this encounter Additional Health Concerns Assessment Noted Time PHQ-9 Depression Total Score: 0 11/12/19 23 11:22 AM EST documented as of this encounter Care Teams Shop Repairer Relationship Specialty Start Date End Date Val Menchaca MD [address] [place] [phone] PCP - General Family Medicine 05/12/24 Rey Travis PharmD [address] [place] [phone] Pharmacist Internal Medicine 02/01/25 documented as of this encounter
--- OUTSIDE RECORDS SUMMARY | 2025-05-28 12:48 | XMS_ITS | Encounter Summary ---
Author Organization [employer] Address [address] [facility] [address] [place] [address] Care Team Providers Care Graphic Design Intern Name Role Phone Val Menchaca MD Primary Care Provider [phone] Rey Travis PharmD Unavailable [phone] Reason for Referral * Consultation (Routine) - Closed Specialty Diagnoses / Procedures Referred By Contac t Referred To Contact Physical Therapy Diagnoses Chronic right shoulder pain Val Menchaca MD [address] [place] [address] Phone: tel: fax: [facility] [address] Phone: tel: fax: Referral ID Status Reason Start Date Expiration Date V isits Requested Visits Authorized [id number] Closed Specialty Services Required 10/29/2024 10/29/2025 20 20 Encounter Details Date Type Department Care Team (Late st Contact Info) Description 10/28/2024 Orders Only [facility] [address] [place], [place] [phone] Val Menchaca MD [address] [place], [place] [phone] Chronic right shoulder pain (Primary Dx); Uncomplicated opioid dependence (CMS/HCC) Social History Tobacco Use Types Packs/Day Years Used Date Smoking Tobacco: Every Day Cigarettes 0.5 14 Started: 2006; Last attempted to quit: 2021 Passive Smoke Exposure: Never Smokeless Tobacco: Never [...] Info) Description 06/04/2025 1:30 PM EDT Telemedicine [facility] [address] [place] [phone] Rey Travis PharmD [address] [place] [address] 06/15/2025 10:15 AM EDT Office Visit [facility] [address] [place] [address] Harley Botello MD [address] [place], [place] [phone] Scheduled Referrals Name Type Priority Associated Diagnoses Orde r Schedule Referral to Physical Therapy Outpatient Referral Routine Chronic right shoulder pain Expected: 10/28/2024 (Approximate), Expires: 10/28/2025 documented as of this encounter Goals Goal Patient Goal Type Associated Problems Recent Progress Patient-Stated? Author Blood Pressure < 140/90 Blood Pressure 150/86( 025 9:56 AM EDT) No Rey Travis, Raymundo documented as of this encounter Visit Diagnoses Diagnosis Chronic right shoulder pain- Primary Pain in joint, shoulder region Uncomplicated opioid dependence (CMS/HCC) documented in this encounter Additional Health Concerns Assessment Noted Time PHQ-9 Depression Total Score: 4 06/30/20 24 10:37 AM EDT documented as of this encounter Care Teams Graphic Design Intern Relationship Specialty Start Date End Date Val Menchaca MD [address] [place] [address] PCP - General Family Medicine 05/12/24 Rey Travis, Raymundo [address] [place] [phone] Pharmacist Internal Medicine 02/01/25 documented as of this encounter
--- OUTSIDE RECORDS SUMMARY | 2025-05-28 12:48 | XMS_ITS | Encounter Summary ---
Author Organization [employer] Address [address] [facility] 7t [place] [address] Care Team Providers Care Asphalt Heater Operator Name Role Phone Val Menchaca MD Primary Care Provider [phone] Rey Travis PharmD Unavailable [phone] Reason for Visit * Reason Comments Med Refill Encounter Details Date Type Department Care Team (Late st Contact Info) Description 03/21/2025 Refill [facility] [address] [place], [place] [phone] Val Menchaca MD [address] [place], [place] [phone] Social History Tobacco Use Types Packs/Day Years [...] the past 12 months, has t he [facility], gas, oil or water [employer] threatened to shut off services in your [...] Info) Description 06/04/2025 1:30 PM EDT Telemedicine [facility] [address] [place] [phone] Rey Travis PharmD [address] [place] [phone] 06/15/2025 10:15 AM EDT Office Visit [facility] [address] [place] [phone] Harley Botello MD [address] [place] [phone] documented as of this encounter Goals Goal Patient Goal Type Associated Problems Recent Progress Patient-Stated? Author Blood Pressure < 140/90 Blood Pressure 150/86( 025 9:56 AM EDT) No Rey Travis, PharmDebbie documented as of this encounter Visit Diagnoses Not on filedocumented in this encounter Additional Health Concerns Assessment Noted Time PHQ-9 Depression Total Score: 4 06/30/20 24 10:37 AM EDT documented as of this encounter Care Teams Asphalt Heater Operator Relationship Specialty Start Date End Date Val Menchaca MD [address] [place] [address] PCP - General Family Medicine 05/12/24 Rey Travis, Raymundo [address] [place] [address] Pharmacist Internal Medicine 02/01/25 documented as of this encounter
--- OUTSIDE RECORDS SUMMARY | 2025-05-28 12:48 | XMS_ITS | Encounter Summary ---
Author Organization [employer] Address [address] [facility] 7t [place] [address] Care Team Providers Care Cardiac Nurse Practitioner Name Role Phone Val Menchaca MD Primary Care Provider [phone] Rey Travis PharmD Unavailable [phone] Encounter Details Date Type Department Care Team ([facility] st Contact Info) Description 04/30/2025 Orders Only [facility] [address] [place], [place] [phone] Val Menchaca MD [address] [place], [place] [phone] ASHLYN (acute kidney injury) ([facility]/HCC) (Primary Dx) Social History Tobacco Use Types Packs/Day Years [...] Info) Description 06/04/2025 1:30 PM EDT Telemedicine [facility] [address] [place] [phone] Rey Travis, PharmD [address] [place] [address] 06/15/2025 10:15 AM EDT Office Visit [facility] [address] [place] [phone] Harley Botello MD [address] [place] [phone] documented as of this encounter Goals Goal Patient Goal Type Associated Problems Recent Progress Patient-Stated? Author Blood Pressure < 140/90 Blood Pressure 150/86( 025 9:56 AM EDT) No Rey Travis, PharmD documented as of this encounter Visit Diagnoses Diagnosis ASHLYN (acute kidney injury) (CMS/HCC)- Primary documented in this encounter Additional Health Concerns Assessment Noted Time PHQ-9 Depression Total Score: 4 06/30/20 24 10:37 AM EDT documented as of this encounter Care Teams Cardiac Nurse Practitioner Relationship Specialty Start Date End Date Val Menchaca MD [address] [place] [address] PCP - General Family Medicine 05/12/24 Rey Travis, HuongD [address] [place] [address] Pharmacist Internal Medicine 02/01/25 documented as of this encounter
--- OUTSIDE RECORDS SUMMARY | 2025-05-28 12:48 | XMS_ITS | Clinical Summary ---
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/13/2023 [place] Anaphylaxis High 04/08/2023 Ct reported [place] Anaphylaxis High 04/08/2023 Ct reported [place] Anaphylaxis High 04/08/2023 Ct reported [place] Anaphylaxis High 04/08/2023 Ct reported Medications topiramate (TOPAMAX) 50 mg tablet Take by mouth nightly at bedtime Active venlafaxine XR (EFFEXOR XR) 150 mg 24 hr capsule Take 150 mg by mouth once daily with breakfast Active venlafaxine XR (EFFEXOR XR) 37.5 mg 24 hr capsule Take 37.5 mg by mouth once daily with breakfast Active naloxone (NARCAN) 4 mg/actuation nasal spray Place 1 [place] into the nostril(s) as needed for opioid reversal 2 Each 11 3 Active ascorbic acid (VITAMIN C) 500 mg tablet Take 1 Tablet by mouth 2 (two) times daily 180 Tablet 3 Active blood-glucose meter monitoring kit Check FBS once daily. FREESTYLE LITE Dx.11.65 1 Each 3 Active lancets Check FBS once daily. FREESTYLE LITE Dx.11.65 100 Each 3 Active EPINEPHrine (EPIPEN) 0.3 mg/0.3 mL pen injector Inject 0.3 mL into the muscle as needed for anaphylaxis 2 Each 1 3 Active fluticasone propion-salmeter oL (ADVAIR) 250-50 mcg/dose diskus inhalerIndicatio ns:Moderate persistent asthma with status asthmaticus ([facility]) Inhale 1 Puff into the lungs 2 (two) times daily Rinse mouth after use 180 Each 1 3 Active cyanocobalamin (VITAMIN B-12) 1,000 mcg tablet Take 1 Tablet by mouth once daily 90 Tablet 1 3 Active fluticasone (FLONASE) 50 mcg/actuation nasal spray INHALE 1 TO 2 SPRAYS IN EACH NOSTRIL ONCE DAILY NEEDED 48 g 3 Active montelukast (SINGULAIR) 10 mg tablet Take 1 Tablet by mouth Every afternoon 90 Tablet 1 3 Active tiotropium bromide 1.25 mcg/actuation mistIndications: Moderate persistent asthma with status asthmaticus ([facility]) Inhale 1 Puff into the lungs once daily 12 g 1 3 Active ibuprofen 400 mg tabletIndication s:Frequent headaches Take 1 Tablet by mouth 4 (four) times daily as needed for pain or headaches 30 Tablet 1 3 Active blood sugar diagnostic stripsIndication s:Type 2 diabetes mellitus with hyperglycemia, without long-term current use of insulin ([facility]) Check FBS once daily. FREESTYLE LITE Dx.11.65 100 Each 3 Active cetirizine (ZYRTEC) 10 mg tabletIndication s:Moderate persistent asthma with status asthmaticus ([facility]) Take 1 Tablet by mouth every morning 90 Tablet 1 3 Active metFORMIN (GLUCOPHAGE) 1,000 mg tabletIndication s:Type 2 diabetes mellitus with hyperglycemia, without long-term current use of insulin ([facility]) Take 1 Tablet by mouth 2 (two) times daily with a meal For diabetes 180 Tablet 1 3 Active pravastatin (PRAVACHOL) 80 mg tabletIndication s:Type 2 diabetes mellitus with hyperglycemia, without long-term current use of insulin ([facility]) Take 1 Tablet by mouth nightly at bedtime 90 Tablet 1 3 Active TRULICITY 0.75 mg/0.5 mL pen injector Inject one pen weekly. Prescribed By: BARRY LECHUGA 4 Active topiramate (TOPAMAX) 100 mg tablet Take 100 mg by mouth nightly at bedtime Take 1 tablet once daily. Prescribed By: Guillermo YODER 4 Active albuterol (PROVENTIL) 2.5 mg /3 mL (0.083 %) nebulizer solutionIndicati ons:acute asthma attack Take 3 mL by nebulization every 6 (six) hours as needed for wheezing Indications: asthma attack 75 mL 11 4 Active lisinopriL 20 mg tabletIndication s:Essential (primary) hypertension Take 1 Tablet by mouth once daily 90 Tablet 1 4 Active ferrous fumarate (FERROCITE) 324 mg (106 mg iron) tab Take 1 Tablet by mouth 2 (two) times daily 180 Tablet 4 Active dilTIAZem CD (CARDIZEM CD) 120 mg 24 hr capsule Take 1 Capsule by mouth once daily 90 Capsule 1 4 Active buprenorphine-na loxone (SUBOXONE FILM) 8-2 mg SL filmIndications: Opioid use disorder Place 1 Strip under the tongue 2 (two) times daily for 28 days 56 Each 4 Active VENTOLIN HFA 90 mcg/actuation inhalerIndicatio ns:Type 2 diabetes mellitus with hyperglycemia, without long-term current use of insulin ([facility]) INHALE 2 PUFFS EVERY 4 HOURS NEEDED SHORTNESS OF BREATH 18 g 1 4 Active Active Problems Problem Noted Date Diagnosed Date Bilateral cataracts 09/13/2023 Class 3 severe obesity due t o excess calories without serious comorbidity with body mass index (BMI) of 40.0 to 44.9 in adult ([facility]) 08/13/2023 Moderate persistent asthma w ith status asthmaticus ([facility]) 05/13/2023 Anxiety 05/13/2023 Type 2 diabetes mellitus wit h hyperglycemia, without long-term current use of insulin ([facility]) 05/13/2023 Major depressive disorder, single episode 2022 Essential (primary) hypertension 05/13/2023 Hx of gastric bypass 09/30/2013 Immunizations Immunization Administration Dates Next Due Flu, Multi Dose 0.5 ML 07/23/2017,06/19/2016 Flu, Preservative Free 06/19/2022,09/16/2019,05/2019 Hep A, adult 12/26/2010,02/23/2010,06/16/2008 Hep B, Adult/Adol (SNOQIUS-H-UMXBD/RECOMBIVAX-ADULT) 06/02/2019,05/05/2019,12/26/2010,06/27,02/23/2010 INFLUENZA, SEASONAL, INJECTABLE 08/03/2014 PNEUMOCOCCAL POLYSACCHARIDE PPV23 (Pneumovax 23) 12/01/2016,09/28/2014,08/17/1994 [facility] Flu Vaccine 06/10/2013 TDAP 12/20/2023,03/30/2014 Td (adult) unspecified 05/11/2012 Td (adult),2 Lf tetanus toxo id (TDVAX), preservative free 04/15/2008 ZOSTER VACCINE, RECOMBINANT (SHINGRIX) 4,05/03/2023 Family History Medical History Relation Name Comments Diabetes Brother Hypertension Brother Alcohol abuse Father from alco hol abuse Diabetes Mellitus II Mother Hypertension Mother Stroke Mother from strok e Diabetes Sister Hypertension Sister Relation Name Status Comments Brother Alive Father Mother Sister Alive Social History Tobacco Use Types Packs/Day Years Used Date Smoking Tobacco: Never Passive Smoke Exposure: Never Smokeless Tobacco: Never Tobacco Cessation:Counseling Given: Not Answered Alcohol Use Standard Drinks/Week Comments Never 0 (1 standard drink = 0.6 oz pur e alcohol) Social Connections Answer Date Recorded Connectedness 1 12/20/2023 Financial Resource Strain Answer Date R ecorded Financial Resource Strain 1 2023 Stress Answer Date Recorded Stress 1 12/20/2023 Physical Activity Answer Date Recorded Physical Activity 0 04/18/2023 Food Insecurity Answer Date Recorded Food 1 12/20/2023 Transportation Needs Answer Date Record ed Transportation 1 12/20/2023 Housing Stability Answer Date Recorded Housing 1 12/20/2023 Safety and Environment Answer Date Matthew rded Safety 0 04/03/2023 Utilities Answer Date Recorded Utilities 1 12/20/2023 Employment Answer Date Recorded Employment 0 04/03/2023 Sex and Gender Information Value Date Recorded Sex Assigned at Male 05/13/2023 6:34 PM PDT Legal Sex Male 7:23 AM PDT Gender Identity Male 05/13/2023 6:34 PM PDT Sexual Orientation Straight 05/13/2023 6: 34 PM PDT Last Filed Vital Signs Vital Sign Reading Time Taken Comments Blood Pressure 148/88 03/10/2024 3:26 PM EDT Pulse 89 03/10/2024 3:26 PM EDT Temperature 37 C (98.6 F) 03/09/2024 9:20 AM EDT Respiratory Rate 17 03/09/2024 9:20 AM EDT Oxygen Saturation 97% 03/10/2024 3:26 PM EDT Inhaled Oxygen Concentration - - Weight 110.4 kg (243 lb 6.4 oz) 03/09/2024 9:20 AM EDT Height 165.1 cm (5' 5 ) 03/09/2024 9:20 AM EDT Body Mass Index 40.5 03/09/2024 9:20 AM EDT Plan of Treatment Health Maintenance Due Date Last Done Comments Anxiety Screening [address] Colonography 2011 Colonoscopy 2011 Colorectal Cancer Screening 2011 FIT/gFOBT 2011 Fecal DNA 2011 Flexible Sigmoidoscopy 2011 Imm-Pneumococcal 50+ (2 of 2 - PCV) 12/01/2017 12/01/2016, 09/28/2014, 08/17/1994 Wes-ROMPE-50 ( season) 2024 07/24/2022, 11/21/2021, 01/13/2021, Additional history exists Annual Wellness (Adult): Ind icated (All Coverage) 09/26/2024 09/26/2023, 08/13/2023 Alcohol and Drug Screen 09/30/2024 12/20/2023, 05/03 Depression Annual Screen 09/30/2024 Lipid Screening 10/03/2024 10/03/2023, 05/02/2023 Tobacco Screening 11/12/2024 11/12/2023 Hypertension Screening (#1) 03/10/2025 Imm-Influenza (#1) 2025 06/19/2022, 1 11/17/2018, 10/08/2018, Additional history exists Diabetes Screening 10/03/2026 10/03/2023, 0 10/03/2023, 05/20/2023, Additional history exists Imm-DTaP/Tdap/Td (3 - Td or Tdap) 12/19/2033 12/20/2023, 03/30/2014, 05/11/2012, Additional history exists Imm-Hepatitis B Completed 06/02/2019, 0802/2019, 12/26/2010, Additional history exists HIV Screening Completed 05/02/2023 Hepatitis C Screening Completed 05/02/2023 Imm-Zoster, Recombinant Completed 12/20/2023, 05/03 Procedures Procedure Name Priority Date/Time Associated Diagnosis Comments VIRTUAL ASSISTANT REPORT 3:00 AM EDT COMPREHENSIVE METABOLIC PANEL Routine 10/03/2023 8:43 AM EST Screening due Class 3 severe obesity due to excess calories without serious comorbidity with body mass index (BMI) of 40.0 to 44.9 in adult ([facility]) LIPID PANEL Routine 10/03/2023 8:43 AM EST Screening due Class 3 severe obesity due to excess calories without serious comorbidity with body mass index (BMI) of 40.0 to 44.9 in adult ([facility]) HIV 1/2 AG & AB W/RFLX (4TH GEN) Routine 05/02/2023 1:57 PM EDT Opioid use disorder HEPATITIS C AB W/RFLX HCV RNA, QT, RT PCR Routine 05/02/2023 1:57 PM EDT Opioid use disorder from Last 3 Months or Most Recently Relevant to Health Maintenance Results * VIRTUAL ASSISTANT REPORT (03/12/2025 3:00 AM EDT) 03/12/2025 3:00 AM EDT Josue Hanna MACHINE SWEEPER BRUSH MAKER SCAN PROCEDURES Final Res ult * (ABNORMAL) LIPID PANEL (10/03/2023 8:43 AM EST) CHOLESTEROL, TOTAL 204(H) <200 mg/dL [facility] HDL CHOLESTEROL 48 > OR = 40 mg/dL [facility] TRIGLYCERIDES 139 <150 mg/dL [facility] LDL-CHOLESTEROL 131(H) 99 mg/dL (calc) [facility] Comment: Reference range: <100 Desirable range <100 mg/dL for primary prevention; <70 mg/dL for patients with CHD or diabetic patients with > or = 2 CHD risk factors. LDL-C is now calculated using the Frederic calculation, which is a validated novel method providing better accuracy than the Friedewald equation in the estimation of LDL-C. Frantz LUTHER et al. JOSIAH. 2013;310(19): 9480-6830 (http://education.ChromoTek/faq/UXL196) CHOL/HDLC RATIO 4.3 <5.0 (calc) [facility] NON-HDL CHOLESTEROL 156(H) <130 mg/dL (calc) [facility] Comment: For patients with diabetes plus 1 major ASCVD risk factor, treating to a non-HDL-C goal of <100 mg/dL (LDL-C of <70 mg/dL) is considered a therapeutic option. Blood Blood / Unknown 10/03/2023 8 :43 AM EST 10/03/2023 8:44 AM EST Narrative [facility] - 10/05/2023 6:14 PM EST FASTING:YES Apryl Lawrence PA-C LAB - BLOOD DRAW Final Resu lt [facility] [address] [place] [id number], [facility] [address] [place] [phone] * (ABNORMAL) COMPREHENSIVE METABOLIC PANEL (10/03/2023 8:43 AM EST) GLUCOSE 129(H) 65 - 99 mg/dL [facility] Comment: Fasting reference interval For someone without known diabetes, a glucose value >125 mg/dL indicates that they may have diabetes and this should be confirmed with a follow-up test. UREA NITROGEN (BUN) 11 7 - 25 mg/dL [facility] CREATININE (blood) 0.75 0.70 - 1.30 mg/dL [facility] EGFR 106 > OR = 60 mL/min/1. 73m2 [facility] BUN/CREATININE RATIO SEE NOTE: [facility] Comment: Not Reported: BUN and Creatinine are within reference range. SODIUM 137 135 - 146 mmol/L [facility] POTASSIUM 4.3 3.5 - 5.3 mmol/L [facility] CHLORIDE 102 98 - 110 mmol/L [facility] CARBON DIOXIDE 24 20 - 32 mmol/L [facility] CALCIUM 8.7 8.6 - 10.3 mg/dL [facility] PROTEIN, TOTAL 6.6 6.1 - 8.1 g/dL [facility] ALBUMIN 4.3 3.6 - 5.1 g/dL [facility] GLOBULIN 2.3 1.9 - 3.7 g/dL (calc) [facility] ALBUMIN/GLOBULI N RATIO 1.9 1.0 - 2.5 (calc) [facility] BILIRUBIN, TOTAL 0.6 0.2 - 1.2 mg/dL [facility] ALKALINE PHOSPHATASE 84 35 - 144 U/L [facility] AST 19 10 - 35 U/L [facility] ALT 20 9 - 46 U/L [facility] Blood Blood / Unknown 10/03/2023 8 :43 AM EST 10/03/2023 8:44 AM EST Narrative [employer] - 10/05/2023 6:14 PM EST FASTING:YES us Apryl Lawrence PA-C LAB - BLOOD DRAW Edited Res ult - Final [facility] [address] [address], [facility] [address] [phone] * HEPATITIS C AB W/RFLX HCV RNA, QT, RT PCR (05/02/2023 1:57 PM EDT) HEPATITIS C ANTIBODY NON-REACT MANJULA NON-REACT MANJULA [facility] Comment: HCV antibody was non-reactive. There is no laboratory evidence of HCV infection. In most cases, no further action is required. However, if recent HCV exposure is suspected, a test for HCV RNA (test code 74020) is suggested. For additional information please refer to http://CustomerXPs Software.Style on Screen/faq/WER45u1 (This link is being provided for informational/ educational purposes only.) Blood Blood / Unknown 05/02/2023 1 :57 PM EDT 05/02/2023 1:58 PM EDT [facility] - 05/10/2023 3:05 PM EDT FASTING:NO PATIENT UNABLE TO VOID; ADVISED TO RETURN FOR COLLECTION. Yanelyradha Wan [facility] LAB - BLOOD DRAW Edited Result - Final [facility] [address] [place] [phone], [facility] [address] [address] * HIV 1/2 AG & AB W/RFLX (4TH GEN) (05/02/2023 1:57 PM EDT) [facility] HIV AG/AB, 4TH GEN NON-REAC TIVE NON-REAC TIVE [facility] Comment: HIV-1 antigen and HIV-1/HIV-2 antibodies were not detected. There is no laboratory evidence of HIV infection. PLEASE NOTE: This information has been disclosed to you from records whose confidentiality may be protected by state law. If your state requires such protection, then the state law prohibits you from making any further disclosure of the information without the specific written consent of the person to whom it pertains, or as otherwise permitted by law. A general authorization for the release of medical or other information is NOT sufficient for this purpose. For additional information please refer to http://education.Sckipio Technologies.Hello Chair/faq/SMS644 (This link is being provided for informational/ educational purposes only.) The performance of this assay has not been clinically validated in patients less than 2 years old. Blood Blood / Unknown 05/02/2023 1 :57 PM EDT 05/02/2023 1:58 PM EDT Narrative [facility] - 05/10/2023 3:05 PM EDT FASTING:NO PATIENT UNABLE TO VOID; ADVISED TO RETURN FOR COLLECTION. Yanely Wan MACHINE SWEEPER BRUSH MAKER LAB - BLOOD DRAW Final Result [facility] [address] [address], [facility] [address] [place] [address] from Last 3 Months or Most Recently Relevant to Health Maintenance Insurance [facility] [address] [employer]
--- OUTSIDE RECORDS SUMMARY | 2025-05-28 12:48 | XMS_ITS | Encounter Summary ---
Author Organization [employer] Address [address] [facility] [address] [place] [address] Care Team Providers Care Spice Blender Name Role Phone Val Menchaca MD Primary Care Provider [phone] Rey Travis PharmD Unavailable [phone] Reason for Visit * Reason Comments Med Refill Encounter Details Date Type Department Care Team ([facility] st Contact Info) Description 03/17/2024 Refill [facility] [address] [place], [place] [phone] Val Menchaca MD [address] [place] [address] Social History Tobacco Use Types Packs/Day Years Used Date Smoking Tobacco: Never Passive Smoke Exposure: Never Smokeless Tobacco: Never Alcohol Use Standard Drinks/Week Comments Never 0 (1 standard drink = 0.6 oz pur e alcohol) Depression Answer Date Recorded Patient Health Questionnaire-9 Score 10 03/17/2024 Patient Health Questionnaire-9 Score 10 03/17/2024 Last PHQ-9: Questionnaire Data Not on file 0 03/17/2024 Housing Stability Answer Date Recorded What is [...] Answer Date Recorded Patient Health Questionnaire-2 Score 1 03/17/2024 Sex and Gender Information Value Date Recorded Sex Assigned at Male 07/30/2022 10:14 AM EDT Legal Sex Male 10:14 AM EDT Gender Identity Male 07/30/2022 10:14 AM EDT Sexual Orientation Straight 07/30/2022 10 :14 AM EDT documented as of this encounter Functional Status * Over the past 2 weeks, how often have you been bothered by any of the following problems? Question Answer Date of Assessment Author Patient Health Questionnaire-2 Score 1 02/28 3:50 PM EDT Gema Thacker * Over the last 2 weeks, how often have you been bothered by any of the following problems? Question Answer Date of Assessment Author Feeling nervous, anxious, or on edge 1 02/28 3:51 PM EDT Gema Thacker Not being able to stop or co ntrol worrying 0 03/17/2024 3:51 PM EDT Gema Thacker Worrying too much about different things 0 03/17/2024 3:51 PM EDT Gema Thacker Trouble relaxing 1 03/17/2024 3:51 PM EDT Gema Navarro Being so restless that it is hard to sit still 1 03/17/2024 3:51 PM EDT Gema Thacker Becoming easily annoyed or irritable 0 02/28 3:51 PM EDT Gema Thacker Feeling afraid as if somethi ng awful might happen 0 03/17/2024 3:51 PM EDT Gema Thacker ZHEN-7 Total Score 3 03/17/2024 3:51 PM EDT Gema Thacker * Over the past 2 weeks, how often have you been bothered by any of the following problems? Question Answer Date of Assessment Author Little interest or pleasure in doing things Several days 03/17/2024 3:50 PM EDT Gema Thacker Feeling down, depressed, or hopeless Not at all 03/17/2024 3:50 PM EDT Kedar Gema Trouble falling or staying asleep, or sleeping too much Nearly every day 03/17/2024 3:50 PM EDT Kedar Gema Feeling tired or having little energy More than half the days 03/17/2024 3:50 PM EDT Kedar Gema Poor appetite or overeating Nearly every day 3:50 PM EDT Gema Thacker Feeling bad about yourself - or that you are a failure or have let yourself or your family down Not at all 03/17/2024 3:50 PM EDT Gema Thacker Trouble concentrating on things, such as reading the newspaper or watching television Not at all 03/17/2024 3:50 PM EDT Gema Thacker Moving or speaking so slowly that other people could have noticed? Or the opposite - being so fidgety or restless that you have been moving around a lot more than usual. Several days 03/17/2024 3:50 PM EDT Gema Thacker Thoughts that you would be better off or hurting yourself in some way Not at all 03/17/2024 3:50 PM EDT Gema Thacker Patient Health Questionnaire-9 Score 10 03/17/2024 3:50 PM EDT Gema Thacker documented as of this encounter Plan of Treatment Upcoming Encounters Date Type Department Care Team (Late st Contact Info) Description 06/04/2025 1:30 PM EDT Telemedicine [facility] [address] [place] [phone] Rey Travis, PharmD [address] [place] [phone] 06/15/2025 10:15 AM EDT Office Visit [facility] [address] [place] [phone] Harley Botello MD [address] [place] [phone] documented as of this encounter Goals Goal Patient Goal Type Associated Problems Recent Progress Patient-Stated? Author Blood Pressure < 140/90 Blood Pressure 150/86( 025 9:56 AM EDT) No Rey Travis, Raymundo documented as of this encounter Visit Diagnoses Not on filedocumented in this encounter Additional Health Concerns Assessment Noted Time PHQ-9 Depression Total Score: 10 024 3:50 PM EDT documented as of this encounter Care Teams Spice Blender Relationship Specialty Start Date End Date Val Menchaca MD [address] [place] [phone] PCP - General Family Medicine 05/12/24 Rey Travis, PharmD [address] [place] [phone] Pharmacist Internal Medicine 02/01/25 documented as of this encounter
--- OUTSIDE RECORDS SUMMARY | 2025-05-28 12:48 | XMS_ITS | Encounter Summary ---
Author Organization [employer] Address [address] [facility] 7[address] [place] [address] Care Team Providers Care Supervisor Pressing Department Name Role Phone Val Menchaca MD Primary Care Provider [phone] Rey Travis PharmD Unavailable [phone] Reason for Visit * Reason Comments Med Refill Encounter Details Date Type Department Care Team (Late st Contact Info) Description 07/16/2024 Refill [facility] [address] [place], [place] [phone] Val Menchaca MD [address] [place] [address] Social History Tobacco Use Types Packs/Day Years Used Date Smoking Tobacco: Former Cigarettes 0.5 14 2 007 - 2020 Passive Smoke Exposure: Never Smokeless [...] Info) Description 06/04/2025 1:30 PM EDT Telemedicine [facility] [address] [place] [phone] Rey Travis, PharmDebbie [address] [place] [phone] 06/15/2025 10:15 AM EDT Office Visit [facility] [address] [place] [phone] Harley Botello MD [address] [place] [phone] documented as of this encounter Goals Goal [...] documented as of this encounter Care Teams Supervisor Pressing Department Relationship Specialty Start Date End Date Val Menchaca MD [address] [place] [address] PCP - General Family Medicine 05/12/24 Rey Travis, HuongD [address] [place] [address] Pharmacist Internal Medicine 02/01/25 documented as of this encounter
[2025-05-28 14:13] LABS: Cholesterol 164 mg/dL (<200); HDL Cholesterol 37 mg/dL (>40); Triglycerides 96 mg/dL (<150)
[2025-05-28 16:48] LABS: Reflex LDLD? No
== END 2025-05-28 11:55 | disposition home or self-care (01) ==
LOC: HO.HHCL 11:54
PROVIDERS: PCP Family Medicine; Visit Provider Family Medicine
DX: E78.5 Hyperlipidemia, unspecified (principal)
CPT/HCPCS: 36415; 80061

== ENCOUNTER 2025-06-07 08:51 | Outpatient (REF) | payer MEDICAID, SELFPAY ==
--- OUTSIDE RECORDS SUMMARY | 2025-06-04 13:30 | XMS_ITS | Encounter Summary ---
Author Organization [employer] Address [address] [facility] 7t [place] [address] Care Team Providers Care Barrel Handler Name Role Phone Val Menchaca MD Primary Care Provider [phone] Rey Travis PharmD Unavailable [phone] Reason for Visit * Consultation (Routine) - Authorized Specialty Diagnoses / Procedures Referred By Contac t Referred To Contact Pharmacy Diagnoses Primary hypertension Val Menchaca MD [address] [place] [address] Phone: tel: fax: Referral ID Status Reason Start Date Expiration Date Visits Requested Visits Authorized [id number] Authorized Consult and Treat 01/01/2025 01/01/2026 6 6 Encounter Details Date Type Department Care Team ([facility] st Contact Info) Description 06/04/2025 1:[address] [facility] [address] [place], [place] [phone] Rey Travis, PharmD [address] [place], [place] [phone] Primary hypertension (Primary Dx); Type 2 diabetes mellitus with hyperglycemia, without long-term current use of insulin ([facility]) Social History Tobacco Use Types Packs/Day Years [...] Care Team (Late st Contact Info) Description 06/15/2025 10:15 AM EDT Office [address] [facility] [address] [place] [address] Harley Botello MD [address] [place] [address] 08/06/2025 1:[address] [facility] [address] [place] [address] Rey Travis, HuongD [address] [place] [address] Scheduled Orders Name Type Priority Associated Diagnoses Orde r Schedule Basic Metabolic Panel Lab Routine Primary hypertension Expected: 06/04/2025 (Approximate), Expires: 06/04/2026 Albumin, Random Urine W/Creatinine Lab Routine Type 2 diabetes mellitus with hyperglycemia, without long-term current use of insulin ([facility]) Expected: 06/04/2025 (Approximate), Expires: 06/04/2026 Hepatic Function Panel Lab Routine Type 2 diabetes mellitus with hyperglycemia, without long-term current use of insulin ([facility]) Expected: 06/04/2025 (Approximate), Expires: 06/04/2026 documented as of this encounter Goals Goal Patient Goal Type Associated Problems Recent Progress Patient-Stated? Author Blood Pressure < 140/90 Blood Pressure 150/86( 025 9:56 AM EDT) No Rey Travis, PharmD documented as of this encounter Visit Diagnoses Diagnosis Primary hypertension- Primary Unspecified essential hypertension Type 2 diabetes mellitus with hyperglycemia, without long-term current use of insulin ([facility]) documented in this encounter Additional Health Concerns Assessment Noted Time PHQ-9 Depression Total Score: 17 025 9:38 AM EDT documented as of this encounter Care Teams Barrel Handler Relationship Specialty Start Date End Date Val Menchaca MD [address] [place] [address] PCP - General Family Medicine 05/12/24 Rey Travis, PharmD [address] [place] [address] Pharmacist Internal Medicine 02/01/25 documented as of this encounter
--- OUTSIDE RECORDS SUMMARY | 2025-06-07 09:54 | XMS_ITS | Encounter Summary ---
Author Organization [employer] [facility] Address [address] [place] [address] 7t [place] [address] Care Team Providers Care Exhibit Builder Name Role Phone Val Menchaca MD Primary Care Provider [phone] Rey Travis PharmD Unavailable [phone] Val Menchaca MD Primary Care Provider [phone] Rey Travis PharmD Unavailable [phone] Reason for Visit * Reason Comments Med Refill Encounter Details Date Type Department Care Team (Late st Contact Info) Description 06/27/2023 Refill [facility] [address] [place], [place] [phone] Val Menchaca MD [address] [place], [place] [phone] Depressive disorder Social History Tobacco Use Types [...] Department Care Team (Late Contact Info) Description 06/15/2025 10:15 AM EDT Office Visit [facility] [place] [address] [place] [address] 08/06/2025 1:30 PM EST Telemedicine [place] [address] Rey Travis, [place] [address] documented as of this encounter Goals Goal [...] documented as of this encounter Care Teams Exhibit Builder Relationship Specialty Start Date End Date [place] [address] PCP - General Family Medicine 07/30/12 02/10/24 [place] [address] PCP - General Family Medicine 05/12/24 Rey [place] [address] Pharmacist Internal Medicine 02/08/23 02/10/24 [place] [address] Pharmacist Internal Medicine 02/01/25 documented as of this encounter
--- OUTSIDE RECORDS SUMMARY | 2025-06-07 09:54 | XMS_ITS | Encounter Summary ---
Author Organization [employer] Address [address] [facility] 7t [place] [address] Care Team Providers Care Box Office Attendant Name Role Phone Val Menchaca MD Primary Care Provider [phone] Rey Travis PharmD Unavailable [phone] Encounter Details Date Type Department Care Team ([facility] st Contact Info) Description 07/29/2024 Orders Only [facility] [address] [place], [place] [phone] Val Menchaca MD [address] [place] [address] Social History Tobacco Use Types Packs/Day Years [...] the past 12 months, has t he [employer], gas, oil or water company threatened to [...] Description 06/15/2025 10:15 AM EDT Office Visit [facility] [address] [place] [address] Harley Botello MD [address] [place] [address] 08/06/2025 1:30 PM EST Telemedicine [facility] [address] [place] [address] Rey Travis, PharmD [address] [place] [address] documented as of this encounter Goals Goal Patient Goal Type Associated Problems Recent Progress Patient-Stated? Author Blood Pressure < 140/90 Blood Pressure 150/86( 025 9:56 AM EDT) No Rey Travis, PharmD documented as of this encounter Visit Diagnoses Not on filedocumented in this encounter Additional Health Concerns Assessment Noted Time PHQ-9 Depression Total Score: 4 10/01/20 24 10:37 AM EDT documented as of this encounter Care Teams Box Office Attendant Relationship Specialty Start Date End Date Val Menchaca MD [address] [place] [address] PCP - General Family Medicine 05/12/24 Rey Travis, Raymundo [address] [place] [address] Pharmacist Internal Medicine 02/01/25 documented as of this encounter
--- OUTSIDE RECORDS SUMMARY | 2025-06-07 09:54 | XMS_ITS | Encounter Summary ---
Author Organization [employer] Address [address] [facility] 7t [place] [address] Care Team Providers Care Sales Forecast Analyst Name Role Phone Val Menchaca MD Primary Care Provider [phone] Rey Travis PharmD Unavailable [phone] Val Menchaca MD Primary Care Provider [phone] Rey Travis PharmD Unavailable [phone] Reason for Visit * Reason Comments Med Refill Encounter Details Date Type Department Care Team (Late st Contact Info) Description 01/31/2023 Refill [facility] [address] [place] [address] [phone] Fredy Wallace MD [address] [place], [place] [phone] Social History Tobacco Use Types Packs/Day Years [...] Description 06/15/2025 10:15 AM EDT Office Visit [facility] [place] [address] Harley Botello MD [facility] [place] [address] 08/06/2025 1:30 PM EST Telemedicine [facility] [place] [address] Rey Travis, PharmD Dee [facility] [place] [address] documented as of this encounter Visit Diagnoses Not on filedocumented in this encounter Additional Health Concerns Assessment Noted Time PHQ-9 Depression Total Score: 0 11/12/19 23 11:22 AM EST documented as of this encounter Care Teams Sales Forecast Analyst Relationship Specialty Start Date End Date Val Menchaca MD Dee [facility] [place] [address] PCP - General Family Medicine 07/30/12 02/10/24 Val Menchaca MD [facility] [place] [address] PCP - General Family Medicine 05/12/24 Rey Travis, PharmD [facility] [place] [address] Pharmacist Internal Medicine 02/08/23 02/10/24 Rey Travis, PharmD Dee [facility] [place] [address] Pharmacist Internal Medicine 02/01/25 documented as of this encounter
--- OUTSIDE RECORDS SUMMARY | 2025-06-07 09:54 | XMS_ITS | Encounter Summary ---
Author Organization [employer] Address [address] [facility] 7t [place] [address] Care Team Providers Care Customer Accounts Advisor Name Role Phone Val Menchaca MD Primary Care Provider [phone] Rey Travis PharmD Unavailable [phone] Encounter Details Date Type Department Care Team ([facility] st Contact Info) Description 03/16/2025 Orders Only [facility] [address] [place], [place] [phone] ProviderAnnette MD Social History Tobacco Use Types Packs/Day Years [...] Description 06/15/2025 10:15 AM EDT Office Visit [facility] [address] [place] [address] Harley Botello MD [address] [place] [address] 08/06/2025 1:30 PM EST Telemedicine [facility] [address] [place] [address] Rey Travis PharmD [address] [place] [address] documented as of this encounter Goals Goal Patient Goal Type Associated Problems Recent Progress Patient-Stated? Author Blood Pressure < 140/90 Blood Pressure 150/86( 025 9:56 AM EDT) No Rey Travis, Raymundo documented as of this encounter Procedures Procedure [...] documented as of this encounter Care Teams Customer Accounts Advisor Relationship Specialty Start Date End Date Val Menchaca MD [address] [place] [address] PCP - General Family Medicine 05/12/24 Rey Travis, HuongD [address] [place] [address] Pharmacist Internal Medicine 02/01/25 documented as of this encounter
--- OUTSIDE RECORDS SUMMARY | 2025-06-07 09:54 | XMS_ITS | Encounter Summary ---
Author Organization [employer] Address [address] [facility] 7t [place] [address] Care Team Providers Care Carton Stamper Name Role Phone Val Menchaca MD Primary Care Provider [phone] Rey Travis PharmD Unavailable [phone] Reason for Visit * Reason Comments Med Refill Encounter Details Date Type Department Care Team (Late st Contact Info) Description 03/21/2025 Refill [facility] [address] [place], [place] [phone] Val Menchaca MD [address] [place], [place] [phone] Social History Tobacco Use Types Packs/Day Years [...] the past 12 months, has t he [employer], gas, oil or water company threatened to [...] Description 06/15/2025 10:15 AM EDT Office Visit [facility] [address] [place] [address] Harley Botello MD [address] [place] [address] 08/06/2025 1:30 PM EST Telemedicine [facility] [address] [place] [address] Rey Travis, PharmD [address] [place] [address] documented as of this encounter Goals Goal [...] documented as of this encounter Care Teams Carton Stamper Relationship Specialty Start Date End Date Val Menchaca MD [address] [place] [address] PCP - General Family Medicine 05/12/24 Rey Travis, Raymundo [address] [place] [address] Pharmacist Internal Medicine 02/01/25 documented as of this encounter
--- OUTSIDE RECORDS SUMMARY | 2025-06-07 09:54 | XMS_ITS | Encounter Summary ---
Author Organization [employer] Address [address] [facility] 7t [place] [address] Care Team Providers Care Director Business Name Role Phone Val Menchaca MD Primary Care Provider [phone] Rey Travis PharmD Unavailable [phone] Reason for Visit * Reason Comments Med Refill Encounter Details Date Type Department Care Team (Late st Contact Info) Description 07/16/2024 Refill [facility] [address] [place], [place] [phone] Val Menchaca MD [address] [place] [address] Social History Tobacco Use Types Packs/Day Years [...] Description 06/15/2025 10:15 AM EDT Office Visit [facility] [address] [place] [address] Harley Botello MD [address] [place] [address] 08/06/2025 1:30 PM EST Telemedicine [facility] [address] [place] [address] Rey Travis, HuongD [address] [place] [address] documented as of this encounter Goals Goal [...] documented as of this encounter Care Teams Director Business Relationship Specialty Start Date End Date Val Menchaca MD [address] [place] [address] PCP - General Family Medicine 05/12/24 Rey Travis, Raymundo [address] [place] [address] Pharmacist Internal Medicine 02/01/25 documented as of this encounter
--- OUTSIDE RECORDS SUMMARY | 2025-06-07 09:54 | XMS_ITS | Encounter Summary ---
Author Organization [facility] Address [address] [place] [address] Care Team Providers Care Supervisor Cell Maintenance Name Role Phone Yanely Wan LINDSEY Primary Care Provider [phone] Encounter Details Date Type Department Care Team (Late st Contact Info) Description 04/05/2023 / INTERIM [facility] [address] [place] [phone] Luis Bran [address] [place] [address] Social History Tobacco Use Types Packs/Day Years [...] as of this encounter Care Teams Supervisor Cell Maintenance Relationship Specialty Start Date End Date Yanely Wan FNP [address] [place] [address] PCP - General Internal Medicine 04/05/23 06/16/24 documented as of this encounter
--- OUTSIDE RECORDS SUMMARY | 2025-06-07 09:54 | XMS_ITS | Encounter Summary ---
Author Organization [employer] Address [address] [facility] 7t [place] [address] Care Team Providers Care Warper Tender Name Role Phone Val Menchaca MD Primary Care Provider [phone] Rey Travis PharmD Unavailable [phone] Encounter Details Date Type Department Care Team ([facility] st Contact Info) Description 04/30/2025 Orders Only [facility] [address] [place], [place] [phone] Val Menchaca MD [address] [place], [place] [phone] ASHLYN (acute kidney injury) ([facility]) (Primary Dx) Social History Tobacco Use Types [...] Description 06/15/2025 10:15 AM EDT Office Visit [facility] [address] [place] [address] Harley Botello MD [address] [place] [address] 08/06/2025 1:30 PM EST Telemedicine [facility] [address] [place] [address] Rey Travis, HuongD [address] [place] [address] documented as of this encounter Goals Goal [...] documented as of this encounter Care Teams Warper Tender Relationship Specialty Start Date End Date Val Menchaca MD [address] [place] [address] PCP - General Family Medicine 05/12/24 Rey Travis, HuongD [address] [place] [address] Pharmacist Internal Medicine 02/01/25 documented as of this encounter
--- OUTSIDE RECORDS SUMMARY | 2025-06-07 09:54 | XMS_ITS | Encounter Summary ---
Author Organization [employer] Address [address] [facility] 7t [place] [address] Care Team Providers Care Cook Fruit Name Role Phone Val Menchaca MD Primary Care Provider [phone] Rey Travis PharmD Unavailable [phone] Val Menchaca MD Primary Care Provider [phone] Rey Travis PharmD Unavailable [phone] Encounter Details Date Type Department Care Team (Latest Contact Info) Description 03/30/2019 Abstract [facility] CONVERSIONS Dental, Provider, DDS Social History Tobacco [...] Description 06/15/2025 10:15 AM EDT Office Visit [facility] [address] [place] [address] Harley Botello MD [address] [place] [address] 08/06/2025 1:30 PM EST Telemedicine [facility] [address] [place] [address] Rey Travis, PharmD [address] [place] [address] documented as of this encounter Visit Diagnoses Not on filedocumented in this encounter Care Teams Cook Fruit Relationship Specialty Start Date End Date Val Menchaca MD [address] [place] [address] PCP - General Family Medicine 07/30/12 02/10/24 Val Menchaca MD [address] [place] [address] PCP - General Family Medicine 05/12/24 Rey Travis, HuongD [address] [place] [address] Pharmacist Internal Medicine 02/08/23 02/10/24 Rey Travis PharmD [address] [place] [address] Pharmacist Internal Medicine 02/01/25 documented as of this encounter
--- OUTSIDE RECORDS SUMMARY | 2025-06-07 09:54 | XMS_ITS | Clinical Summary ---
Author Organization [employer] [facility] it Address [address] [place] [address] Care Team Providers Care Visual Stylist Name Role Phone Unavailable Primary Care Provider [...] 2016 Zoster Vaccines (1 of 2) 2016 Depression Screening 09/30/2024 COVID-19 Vaccine ( - 2023-2 5 season) 2025 Influenza Vaccine (#1) 2025 HIB Vaccines Aged [...]
--- OUTSIDE RECORDS SUMMARY | 2025-06-07 09:54 | XMS_ITS | Clinical Summary ---
Author Organization [facility] Address [address] [place] [address] Care Team Providers Care Practice Consultant Name Role Phone Unavailable Primary Care Provider [...] reported [place] Anaphylaxis High 04/08/[address] [facility] Anaphylaxis High 04/08/2023 Ct reported Medications topiramate [...] (NARCAN) 4 mg/actuation nasal spray Place 1 [place] into the nostril(s) as needed for opioid [...] inhalerIndicatio ns:Moderate persistent asthma with status asthmaticus ([facility]) Inhale 1 Puff into the lungs 2 [...] hyperglycemia, without long-term current use of insulin ([facility]) Check FBS once daily. FREESTYLE LITE Dx.11.65 100 Each 3 Active cetirizine (ZYRTEC) 10 mg tabletIndication s:Moderate persistent asthma with status asthmaticus ([facility]) Take 1 Tablet by mouth every morning 90 Tablet 1 3 Active metFORMIN (GLUCOPHAGE) 1,000 mg tabletIndication s:Type 2 diabetes mellitus with hyperglycemia, without long-term current use of insulin ([facility]) Take 1 Tablet by mouth 2 (two) times daily with a meal For diabetes 180 Tablet 1 3 Active pravastatin (PRAVACHOL) 80 mg tabletIndication s:Type 2 diabetes mellitus with hyperglycemia, without long-term current use of insulin ([facility]) Take 1 Tablet by mouth nightly at [...] hyperglycemia, without long-term current use of insulin ([facility]) INHALE 2 PUFFS EVERY 4 HOURS NEEDED SHORTNESS OF BREATH 18 g 1 4 Active Active Problems Problem Noted Date Diagnosed Date Bilateral cataracts 09/13/2023 Class 3 severe obesity due t o excess calories without serious comorbidity with body mass index (BMI) of 40.0 to 44.9 in adult ([facility]) 08/13/2023 Moderate persistent asthma w ith status asthmaticus ([facility]) 05/13/2023 Anxiety 05/13/2023 Type 2 diabetes mellitus wit h hyperglycemia, without long-term current use of insulin ([facility]) 05/13/2023 Major depressive disorder, single episode 2022 Essential (primary) hypertension 05/13/2023 Hx of gastric bypass 09/30/2013 Immunizations Immunization Administration Dates Next Due Flu, Multi Dose 0.5 ML 07/23/2017,06/19/2016 Flu, Preservative Free 06/19/2022,09/16/2019,05/2019 Hep A, adult 12/26/2010,02/23/2010,06/16/2008 Hep B, Adult/Adol (NSMZIRL-V-HCMEW/RECOMBIVAX-ADULT) 06/02/2019,05/05/2019,12/26/2010,06/27,02/23/2010 INFLUENZA, SEASONAL, INJECTABLE 08/03/2014 PNEUMOCOCCAL POLYSACCHARIDE PPV23 (Pneumovax 23) 12/01/2016,09/28/2014,08/17/1994 [facility] State Funded Flu Vaccine 06/10/2013 TDAP 12/20/2023,03/30/2014 [...] 2 - PCV) 12/01/2017 12/01/2016, 09/28/2014, 08/17/1994 Annual Wellness (Adult): Ind icated (All Coverage) 09/26/2024 09/26/2023, 08/13/2023 Alcohol and Drug Screen 09/30/2024 12/20/2023, 05/03 Depression Annual Screen 09/30/2024 Lipid Screening 10/03/2024 10/03/2023, 05/02/2023 Tobacco Screening 11/12/2024 11/12/2023 Hypertension Screening (#1) 03/10/2025 [id number] ( season) 2025 07/24/2022, 11/21/2021, 01/13/2021, Additional history exists Imm-Influenza (#1) 2025 06/19/2022, 1 11/17/2018, 10/08/2018, [...] Procedure Name Priority Date/Time Associated Diagnosis Comments [facility] [employer] REPORT 3:00 AM EDT COMPREHENSIVE METABOLIC PANEL Routine 10/03/2023 8:43 AM EST Screening due Class 3 severe obesity due to excess calories without serious comorbidity with body mass index (BMI) of 40.0 to 44.9 in adult ([facility]) LIPID PANEL Routine 10/03/2023 8:43 AM EST Screening due Class 3 severe obesity due to excess calories without serious comorbidity with body mass index (BMI) of 40.0 to 44.9 in adult ([facility]) HIV 1/2 AG & AB W/RFLX (4TH GEN) Routine 05/02/2023 1:57 PM EDT Opioid use disorder HEPATITIS C AB W/RFLX HCV RNA, QT, RT PCR Routine 05/02/2023 1:57 PM EDT Opioid use disorder from Last 3 Months or Most Recently Relevant to Health Maintenance Results * [employer] REPORT (03/12/2025 3:00 AM EDT) 03/12/2025 3:00 AM EDT Josue Hanna HOME STAG[facility] SPECIALIST SCAN PROCEDURES Final Res ult * (ABNORMAL) LIPID PANEL (10/03/2023 8:43 AM EST) CHOLESTEROL, TOTAL 204(H) <200 mg/dL [facility] HDL CHOLESTEROL 48 > OR = 40 mg/dL [facility] TRIGLYCERIDES 139 <150 mg/dL [facility] LDL-CHOLESTEROL 131(H) 99 mg/dL (calc) [facility] Comment: Reference range: <100 Desirable range <100 mg/dL for primary prevention; <70 mg/dL for patients with CHD or diabetic patients with > or = 2 CHD risk factors. LDL-C is now calculated using the Frederic calculation, which is a validated novel method providing better accuracy than the Friedewald equation in the estimation of LDL-C. Frantz LUTHER et al. JOSIAH. 2013;310(19): 7449-6267 (http://education.[employer]/faq/DLN688) CHOL/HDLC RATIO 4.3 <5.0 (calc) [facility] NON-HDL CHOLESTEROL 156(H) <130 mg/dL (calc) [facility] Comment: For patients with diabetes plus 1 major ASCVD risk factor, treating to a non-HDL-C goal of <100 mg/dL (LDL-C of <70 mg/dL) is considered a therapeutic option. Blood Blood / Unknown 10/03/2023 8 :43 AM EST 10/03/2023 8:44 AM EST Narrative [facility] [employer] [facility] - 10/05/2023 6:14 PM EST FASTING:YES Apryl Lawrence PA-C LAB - BLOOD DRAW Final Resu lt [facility] [facility] [address] [place] [id number], [facility] [address] [place] [phone] * (ABNORMAL) COMPREHENSIVE METABOLIC PANEL (10/03/2023 8:43 AM EST) GLUCOSE 129(H) 65 - 99 mg/dL [facility] Comment: Fasting reference interval For someone without known diabetes, a glucose value >125 mg/dL indicates that they may have diabetes and this should be confirmed with a follow-up test. UREA NITROGEN (BUN) 11 7 - 25 mg/dL [facility] CREATININE (blood) 0.75 0.70 - 1.30 mg/dL [facility] EGFR 106 > OR = 60 mL/min/1. 73m2 [facility] [facility] BUN/CREATININE RATIO SEE NOTE: [employer] [facility] Comment: Not Reported: BUN and Creatinine are within reference range. SODIUM 137 135 - 146 mmol/L [employer] [facility] POTASSIUM 4.3 3.5 - 5.3 mmol/L [employer] [facility] CHLORIDE 102 98 - 110 mmol/L [facility] [facility] CARBON DIOXIDE 24 20 - 32 mmol/L [facility] [facility] CALCIUM 8.7 8.6 - 10.3 mg/dL [facility] [facility] PROTEIN, TOTAL 6.6 6.1 - 8.1 g/dL [employer] [facility] ALBUMIN 4.3 3.6 - 5.1 g/dL [facility] [facility] GLOBULIN 2.3 1.9 - 3.7 g/dL (calc) [facility] [facility] ALBUMIN/GLOBULI N RATIO 1.9 1.0 - 2.5 (calc) [facility] [facility] BILIRUBIN, TOTAL 0.6 0.2 - 1.2 mg/dL [facility] [facility] ALKALINE PHOSPHATASE 84 35 - 144 U/L [facility] [facility] AST 19 10 - 35 U/L [facility] [facility] ALT 20 9 - 46 U/L [facility] [facility] Blood Blood / Unknown 10/03/2023 8 :43 AM EST 10/03/2023 8:44 AM EST Narrative [facility] - 10/05/2023 6:14 PM EST FASTING:YES us Apryl Lawrence PA-C LAB - BLOOD DRAW Edited Res ult - Final [facility] [facility] [address] [id number], [employer] [facility] [address] [phone] * HEPATITIS C AB W/RFLX HCV RNA, QT, RT PCR (05/02/2023 1:57 PM EDT) HEPATITIS C ANTIBODY NON-REACT MANJULA NON-REACT MANJULA [facility] [facility] Comment: HCV antibody was non-reactive. There is no laboratory evidence of HCV infection. In most cases, no further action is required. However, if recent HCV exposure is suspected, a test for HCV RNA (test code 72870) is suggested. For additional information please refer to http://[employer]/faq/FGB10l0 (This link is being provided for informational/ educational purposes only.) Blood Blood / Unknown 05/02/2023 1 :57 PM EDT 05/02/2023 1:58 PM EDT Narrative [employer] - 05/10/2023 3:05 PM EDT FASTING:NO PATIENT UNABLE TO VOID; ADVISED TO RETURN FOR COLLECTION. Yanelyradha Wna [facility] LAB - BLOOD DRAW Edited Result - Final [employer] [address] [place] [id number], [employer] [address] [phone] * HIV 1/2 AG & AB W/RFLX (4TH GEN) (05/02/2023 1:57 PM EDT) [facility] HIV AG/AB, 4TH GEN NON-REAC TIVE NON-REAC TIVE [facility] Comment: HIV-1 antigen and HIV-1/HIV-2 antibodies were [...] purpose. For additional information please refer to http://education.[employer]/faq/HLN669 (This link is being provided for informational/ educational purposes only.) The performance of this assay has not been clinically validated in patients less than 2 years old. Blood Blood / Unknown 05/02/2023 1 :57 PM EDT 05/02/2023 1:58 PM EDT Narrative [employer] - 05/10/2023 3:05 PM EDT FASTING:NO PATIENT UNABLE TO VOID; ADVISED TO RETURN FOR COLLECTION. Yanely Wan HOME STAGING SPECIALIST LAB - BLOOD DRAW Final Result [facility] [address] [address], [facility] [address] [place] [address] from Last 3 Months or Most Recently Relevant to Health Maintenance Insurance [facility] [address] [employer]
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
--- OUTSIDE RECORDS SUMMARY | 2025-06-07 09:54 | XMS_ITS ---
Author Organization [facility] Address [address] [place] [address] Care Team Providers Care Washer Meat Name Role Phone Unavailable Primary Care Provider Lydia e SA38 Asthma Program Status:Enrolled (Active) Start date:11/12/2023 Enrollment date:11/12/2023 Case Team Name Relationship Phone Deshaun Bravo PharmD(Responsible Staff) [phone] Continued Care and Services Coordination
--- OUTSIDE RECORDS SUMMARY | 2025-06-07 09:54 | XMS_ITS | Encounter Summary ---
Author Organization [facility] Address [address] [place] [address] Care Team Providers Care Blocker And Sewer Name Role Phone Yanely Wan LINDSEY Primary Care Provider [phone] Encounter Details Date Type Department Care Team (Late st Contact Info) Description 04/18/2023 / TELEPHONE Formerly [facility] [address] [place] [phone] Luis Bran [address] [place] [address] Social History Tobacco Use Types Packs/Day Years [...] documented as of this encounter Care Teams Blocker And Sewer Relationship Specialty Start Date End Date Yanely Wan FNP [address] [place] [address] PCP - General Internal Medicine 04/05/23 06/16/24 documented as of this encounter
--- OUTSIDE RECORDS SUMMARY | 2025-06-07 09:55 | XMS_ITS | Encounter Summary ---
Author Organization [employer] Address [address] [facility] [address] [place] [address] Care Team Providers Care Faucet Polisher Name Role Phone Val Menchaca MD Primary Care Provider Rey Travis PharmD Unavailable [phone] Reason for Visit * Reason Comments Med Refill Encounter Details Date Type Department Care Team ([facility] st Contact Info) Description 03/17/2024 Refill [facility] [address] [place], [place] [phone] Val Menchaca MD [address] [place] [address] Social History Tobacco Use Types Packs/Day Years [...] Nearly every day 03/17/2024 3:50 PM EDT Quentin Thackersa Feeling tired or having little energy More [...] Description 06/15/2025 10:15 AM EDT Office Visit [facility] [address] [place] [phone] Harley Botello MD [address] [place] [phone] 08/06/2025 1:30 PM EST Telemedicine [facility] [address] [place] [phone] Rey Travis, PharmD [address] [place] [phone] documented as of this encounter Goals Goal [...] documented as of this encounter Care Teams Faucet Polisher Relationship Specialty Start Date End Date Val Menchaca MD [address] [place] [address] PCP - General Family Medicine 05/12/24 Rey Travis, PharmD [address] [place] [address] Pharmacist Internal Medicine 02/01/25 documented as of this encounter
--- OUTSIDE RECORDS SUMMARY | 2025-06-07 09:55 | XMS_ITS | Encounter Summary ---
Author Organization [employer] Address [address] [facility] 7t [place] [address] Care Team Providers Care Medical Review Coordinator Name Role Phone Val Menchaca MD Primary Care Provider [phone] Rey Travis PharmD Unavailable [phone] Reason for Visit * Reason Comments Med Refill Encounter Details Date Type Department Care Team (Late st Contact Info) Description 01/07/2025 Refill [facility] [address] [place], [place] [phone] Bella Mcdaniel DO 230 [place], [place] [phone] Social History Tobacco Use Types Packs/Day Years [...] 06/15/2025 10:15 AM EDT Office Visit [facility] [address] [place] [address] Harley Botello MD [address] [place] [address] 08/06/2025 1:30 PM EST Telemedicine [facility] [address] [place] [address] Rey Travis, PharmD [address] [place] [address] documented as of this encounter Goals Goal [...] documented as of this encounter Care Teams Medical Review Coordinator Relationship Specialty Start Date End Date Val Menchaca MD 230 [place] [address] PCP - General Family Medicine 05/12/24 Rey Travis PharmD [address] [place] [address] Pharmacist Internal Medicine 02/01/25 documented as of this encounter
--- OUTSIDE RECORDS SUMMARY | 2025-06-07 09:55 | XMS_ITS | Encounter Summary ---
Author Organization [facility] Address [address] [place] [address] 7t [place] [address] Care Team Providers Care Operations Intelligence Name Role Phone Val Menchaca MD Primary Care Provider [phone] Rey Travis PharmD Unavailable [phone] Val Menchaca MD Primary Care Provider [phone] Rey Travis PharmD Unavailable [phone] Reason for Visit * Reason Comments Med Refill Encounter Details Date Type Department Care Team (Late Contact Info) Description 05/10/2023 Refill [facility] 230 [place], [place] [phone] Val Menchaca MD 230 [place], [place] [phone] Social History Tobacco Use Types Packs/Day Years [...] Description 06/15/2025 10:15 AM EDT Office Visit [facility] [place] [address] [place] [address] 08/06/2025 1:30 PM EST Telemedicine [facility] [place] [address] Rey Travis, Raymundo [facility] [place] [address] documented as of this encounter Goals Goal [...] documented as of this encounter Care Teams Operations Intelligence Relationship Specialty Start Date End Date Val Menchaca MD [facility] [place] [address] PCP - General Family Medicine 07/30/12 02/10/24 Val Menchaca MD [facility] [place] [address] PCP - General Family Medicine 05/12/24 Rey Travis, HuongD [address] [place], [place] [address] [place] [address] Pharmacist Internal Medicine 02/08/23 02/10/24 Rey Travis PharmD [facility] [place] [address] Pharmacist Internal Medicine 02/01/25 documented as of this encounter
--- OUTSIDE RECORDS SUMMARY | 2025-06-07 09:55 | XMS_ITS | Encounter Summary ---
Author Organization [employer] [facility] Address [address] [place] [address] 7t [place] [address] Care Team Providers Care Metal Container Maker Name Role Phone Val Menchaca MD Primary Care Provider [phone] Rey Travis PharmD Unavailable [phone] Val Menchaca MD Primary Care Provider [phone] Rey Travis PharmD Unavailable [phone] Reason for Visit * Reason Comments Med Refill Encounter Details Date Type Department Care Team (Late st Contact Info) Description 06/13/2023 Refill [facility] 230 [place], [place] [phone] Val Menchaca MD 230 [place], [place] [phone] Depressive disorder Social History Tobacco Use Types [...] Description 06/15/2025 10:15 AM EDT Office Visit [facility] [place] [address] [place] [address] 08/06/2025 1:30 PM EST Telemedicine [facility] [place] [address] Rey Travis, [place] [address] documented as of this encounter Goals Goal [...] documented as of this encounter Care Teams Metal Container Maker Relationship Specialty Start Date End Date [place] [address] PCP - General Family Medicine 07/30/12 02/10/24 [place] [address] PCP - General Family Medicine 05/12/24 Rey Travis[place] [address] Pharmacist Internal Medicine 02/08/23 02/10/24 [place] [address] Pharmacist Internal Medicine 02/01/25 documented as of this encounter
--- OUTSIDE RECORDS SUMMARY | 2025-06-07 09:55 | XMS_ITS | Encounter Summary ---
Author Organization [employer] Address [address] [facility] 7t [place] [address] Care Team Providers Care Hand Drawer In Helper Name Role Phone Val Menchaca MD Primary Care Provider [phone] Rey Travis PharmD Unavailable [phone] Reason for Visit * Reason Comments Med Refill Encounter Details Date Type Department Care Team ([facility] st Contact Info) Description 02/21/2024 Refill [facility] 230 [place], [place] [phone] Val Menchaca MD 230 [place], [place] [phone] Social History Tobacco Use Types Packs/Day Years [...] Description 06/15/2025 10:15 AM EDT Office Visit [facility] [address] [place] [address] Harley Botello MD [address] [place] [address] 08/06/2025 1:30 PM EST Telemedicine [facility] [address] [place] [address] Rey Travis, PharmD [address] [place] [address] documented as of this encounter Goals Goal [...] documented as of this encounter Care Teams Hand Drawer In Helper Relationship Specialty Start Date End Date Val Menchaca MD [address] [place] [address] PCP - General Family Medicine 05/12/24 Rey Travis, PharmD [address] [place] [address] [phone] Pharmacist Internal Medicine 02/01/25 documented as of this encounter
--- OUTSIDE RECORDS SUMMARY | 2025-06-07 09:55 | XMS_ITS | Encounter Summary ---
Author Organization [employer] Address [address] [facility] 7t [place] [address] Care Team Providers Care Senior Pharmacy Technician Name Role Phone Val Menchaca MD Primary Care Provider [phone] Rey Travis PharmD Unavailable [phone] Reason for Referral * Consultation (Routine) - Closed Specialty Diagnoses / Procedures Referred By Contac t Referred To Contact Physical Therapy Diagnoses Chronic right shoulder pain Val Menchaca MD 230 [place] [address] Phone: tel: fax: [facility] [address] Phone: tel: fax: Referral ID Status Reason Start Date Expiration Date V isits Requested Visits Authorized [id number] Closed Specialty Services Required 10/29/2024 10/29/2025 20 20 Encounter Details Date Type Department Care Team (Late st Contact Info) Description 10/28/2024 Orders Only [facility] 230 [place], [place] [phone] Val Menchaca MD 230 [place], [place] [phone] Chronic right shoulder pain (Primary Dx); Uncomplicated [...] Description 06/15/2025 10:15 AM EDT Office Visit [facility] [address] [place] [address] Harley Botello MD 230 [place] [address] 08/06/2025 1:30 PM EST Telemedicine [facility] 230 [place] [address] Rey Travis, PharmD 230 [place] [address] Scheduled Referrals Name Type Priority Associated Diagnoses [...] in joint, shoulder region Uncomplicated opioid dependence (CMS/[facility]) documented in this encounter Additional Health Concerns Assessment Noted Time PHQ-9 Depression Total Score: 4 06/30/20 24 10:37 AM EDT documented as of this encounter Care Teams Senior Pharmacy Technician Relationship Specialty Start Date End Date Val Menchaca MD [address] [place] [address] PCP - General Family Medicine 05/12/24 Rey Travis, PharmDebbie [address] [place] [address] Pharmacist Internal Medicine 02/01/25 documented as of this encounter
--- OUTSIDE RECORDS SUMMARY | 2025-06-07 09:55 | XMS_ITS | Encounter Summary ---
Author Organization [employer] [facility] Address [address] [place] [address] 7t [place] [address] Care Team Providers Care Sensor Technician Name Role Phone Val Menchaca MD Primary Care Provider [phone] Rey Travis PharmD Unavailable [phone] Val Menchaca MD Primary Care Provider [phone] Rey Travis PharmD Unavailable [phone] Reason for Visit * Reason Comments Med Refill Encounter Details Date Type Department Care Team (Late st Contact Info) Description 05/07/2023 Refill [facility] 230 [place], [place] [phone] Val Menchaca MD 230 [place], [place] [phone] Type 2 diabetes mellitus without complications (CMS/HCC) [...] Description 06/15/2025 10:15 AM EDT Office Visit [facility] [place] [address] [place] [address] 08/06/2025 1:30 PM EST Telemedicine [facility] [place] [address] Rey Travis, [place] [address] documented as of this encounter Goals Goal Patient Goal Type Associated Problems Recent Progress Patient-Stated? Author Blood Pressure < 140/90 Blood Pressure 150/86( 025 9:56 AM EDT) No eRy Travis PharmD documented as of this encounter Visit Diagnoses Diagnosis Type 2 diabetes mellitus without complications (CMS/HCC) documented in this encounter Additional Health Concerns Assessment Noted Time PHQ-9 Depression Total Score: 0 11/12/19 23 11:22 AM EST documented as of this encounter Care Teams Sensor Technician Relationship Specialty Start Date End Date [place] [address] PCP - General Family Medicine 07/30/12 02/10/24 [place] [address] PCP - General Family Medicine 05/12/24 Rey Travis, [place] [address] Pharmacist Internal Medicine 02/08/23 02/10/24 Rey Travis, [place] [address] Pharmacist Internal Medicine 02/01/25 documented as of this encounter"
--- OUTSIDE RECORDS SUMMARY | 2025-06-07 09:55 | XMS_ITS | Encounter Summary ---
Author Organization [facility] Address [address] [place] [address] 7t [place] [address] Care Team Providers Care Database Programmer Name Role Phone Val Menchaca MD Primary Care Provider [phone] Rey Travis PharmD Unavailable [phone] Val Menchaca MD Primary Care Provider [phone] Rey Travis PharmD Unavailable [phone] Reason for Visit * Reason Comments Med Refill Encounter Details Date Type Department Care Team (Late st Contact Info) Description 05/10/2023 Refill [facility] 230 [place], [place] [phone] Val Menchaca MD [address] [place], [place] [phone] Type 2 diabetes mellitus without complications (CMS/HCC) [...] Description 06/15/2025 10:15 AM EDT Office Visit [facility] [place] [address] [place] [address] 08/06/2025 1:30 PM EST Telemedicine [facility] [place] [address] Rey Travis, [place] [address] documented as of this encounter Goals Goal [...] documented as of this encounter Care Teams Database Programmer Relationship Specialty Start Date End Date [place] [address] PCP - General Family Medicine 07/30/12 02/10/24 [place] [address] PCP - General Family Medicine 05/12/24 Rey Travis, [place] [address] Pharmacist Internal Medicine 02/08/23 02/10/24 Rey Travis, [place] [address] Pharmacist Internal Medicine 02/01/25 documented as of this encounter
[2025-06-07 12:03] LABS: Alanine Aminotransferase 15 U/L (0-40); Albumin Level 4.3 g/dL (3.5-5.0); Alkaline Phosphatase 88 U/L (39-117); Anion Gap 15 (12-20); Aspartate Amino Transferase 21 U/L (5-37); Blood Urea Nitrogen 12 mg/dL (9-16); Calcium 8.9 mg/dL (8.4-10.2); Carbon Dioxide 25 mmol/L (22-29); Chloride 105 mmol/L (96-108); Estimated Glomerular Filt Rate > 60; Potassium 3.7 mmol/L (3.3-5.1); Sodium 141 mmol/L (135-145); Total Protein 7.1 g/dL (6.5-8.0)
[2025-06-07 12:20] LABS: Microalbum/Creatinine Ratio Ur 2.6 ug/mg cr (<30)
== END 2025-06-07 08:52 | disposition home or self-care (01) ==
LOC: HO.HHCL 08:51
PROVIDERS: PCP Family Medicine; Visit Provider Family Medicine
DX: E11.65 Type 2 diabetes mellitus with hyperglycemia (principal); I10 Essential (primary) hypertension
CPT/HCPCS: 36415; 80048; 80076; 82043; 82570

== ENCOUNTER 2025-07-13 08:27 | Outpatient (REF) | payer MEDICAID, SELFPAY ==
--- OUTSIDE RECORDS SUMMARY | 2025-07-13 08:49 | XMS_ITS | Encounter Summary ---
Author Organization [employer] Address [address] [facility] 7t [place] [address] Care Team Providers Care Revenue Cycle Consultant Name Role Phone Val Menchaca MD Primary Care Provider [phone] Rey Travis PharmD Unavailable [phone] Val Menchaca MD Primary Care Provider [phone] Rey Travis PharmD Unavailable [phone] Encounter Details Date Type Department Care Team (Latest Contact Info) Description 03/30/2019 Abstract [facility] CONVERSIONS Dental, Provider, DDS Social History [...] Care Team (Late st Contact Info) Description 08/06/2025 1:30 PM EST Telemedicine [facility] [address] [place] [phone] Rey Travis, PharmD 230 [place] [address] 08/10/2025 11:00 AM EST Office Visit [facility] [address] [place] [address] Harley Botello MD [address] [place] [address] documented as of this encounter Visit Diagnoses Not on filedocumented in this encounter Care Teams Revenue Cycle Consultant Relationship Specialty Start Date End Date Val Menchaca MD 230 [place] [address] PCP - General Family Medicine 07/30/12 02/10/24 Val Menchaca MD [address] [place] [address] PCP - General Family Medicine 05/12/24 Rey Travis, HuongD [address] [place] [address] Pharmacist Internal Medicine 02/08/23 02/10/24 Rey Travis PharmD [address] [place] [address] Pharmacist Internal Medicine 02/01/25 documented as of this encounter
--- OUTSIDE RECORDS SUMMARY | 2025-07-13 08:49 | XMS_ITS | Encounter Summary ---
Author Organization [employer] Address [address] [facility] 7t [place] [address] Care Team Providers Care Health Data Analyst Name Role Phone Val Menchaca MD Primary Care Provider [phone] Rey Travis PharmD Unavailable [phone] Reason for Visit * Reason Comments Med Refill Encounter Details Date Type Department Care Team (Late st Contact Info) Description 07/16/2024 Refill [facility] [address] [place], [place] [phone] Val Menchaca MD 230 [place] [address] Social History Tobacco Use Types Packs/Day Years [...] Info) Description 08/06/2025 1:30 PM EST Telemedicine [facility] [address] [place] [address] Rey Travis PharmD [address] [place] [address] 08/10/2025 11:00 AM EST Office Visit [facility] [address] [place] [address] Harley Botello MD [address] [place] [address] documented as of this encounter Goals Goal [...] documented as of this encounter Care Teams Health Data Analyst Relationship Specialty Start Date End Date Val Menchaca MD [address] [place] [address] PCP - General Family Medicine 05/12/24 Rey Travis, HuongD [address] [place] [address] Pharmacist Internal Medicine 02/01/25 documented as of this encounter
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
--- OUTSIDE RECORDS SUMMARY | 2025-07-13 08:49 | XMS_ITS | Encounter Summary ---
Author Organization [employer] Address [address] [facility] 7t [place] [address] Care Team Providers Care Ships Or Barges Loader Name Role Phone Val Menchaca MD Primary Care Provider [phone] Rey Travis PharmD Unavailable [phone] Encounter Details Date Type Department Care Team ([facility] st Contact Info) Description 07/29/2024 Orders Only [facility] MEDICINE [address] [place], [place] [phone] Val Menchaca MD [address] [place] [address] Social History Tobacco Use Types Packs/Day Years [...] the past 12 months, has t he [employer], gas, oil or water company threatened to [...] Info) Description 08/06/2025 1:30 PM EST Telemedicine [facility] [address] [place] [address] Rey Travis, PharmD [address] [place] [address] 08/10/2025 11:00 AM EST Office Visit [facility] [address] [place] [address] Harley Botello MD [address] [place] [address] documented as of this encounter Goals Goal [...] documented as of this encounter Care Teams Ships Or Barges Loader Relationship Specialty Start Date End Date Val Menchaca MD [address] [place] [address] PCP - General Family Medicine 05/12/24 Rey Travis, Raymundo [address] [place] [address] Pharmacist Internal Medicine 02/01/25 documented as of this encounter
--- OUTSIDE RECORDS SUMMARY | 2025-07-13 08:49 | XMS_ITS | Encounter Summary ---
Author Organization [employer] Address 75 [facility] 7t [place] [address] Care Team Providers Care Form Drafter Name Role Phone Val Menchaca MD Primary Care Provider [phone] Rey Travis PharmD Unavailable [phone] Val Menchaca MD Primary Care Provider [phone] Rey Travis PharmD Unavailable [phone] Reason for Visit * Reason Comments Med Refill Encounter Details Date Type Department Care Team (Late st Contact Info) Description 01/31/2023 Refill [facility] [address] [place] [address] [phone] Fredy Wallace MD 230 [place], [place] [phone] Social History Tobacco Use Types Packs/Day Years [...] Info) Description 08/06/2025 1:30 PM EST Telemedicine [facility] [place] [address] Rey Travis, PharmD [facility] [place] [address] 08/10/2025 11:00 AM EST Office Visit [facility] [place] [place] [address] Harley Botello MD [facility] [place] [address] documented as of this encounter Visit Diagnoses Not on filedocumented in this encounter Additional Health Concerns Assessment Noted Time PHQ-9 Depression Total Score: 0 11/12/19 23 11:22 AM EST documented as of this encounter Care Teams Form Drafter Relationship Specialty Start Date End Date Val Menchaca MD [facility] [place] [address] PCP - General Family Medicine 07/30/12 02/10/24 Val Menchaca MD [facility] [place] [address] PCP - General Family Medicine 05/12/24 Rey Travis, PharmD [facility] [place] [address] Pharmacist Internal Medicine 02/08/23 02/10/24 Rey Travis, HuongD [facility] [place] [address] Pharmacist Internal Medicine 02/01/25 documented as of this encounter
--- OUTSIDE RECORDS SUMMARY | 2025-07-13 08:49 | XMS_ITS | Clinical Summary ---
Author Organization [employer] [facility] ity Address [address] [place] [address] Care Team Providers Care Deportation Examiner Name Role Phone Unavailable Primary Care Provider [...] 2) 2016 Depression Screening 09/30/2024 COVID-19 Vaccine (1 - 2023-2 5 season) 2025 Influenza Vaccine (#1) 2025 RSV Immunization Adult Patie nts (1 - 1-dose 75+ series) 2041 HIB Vaccines Aged Out No longer eligi [...]
--- OUTSIDE RECORDS SUMMARY | 2025-07-13 08:50 | XMS_ITS | Encounter Summary ---
Author Organization [employer] [facility] Address [address] [place] [address] 7t [place] [address] Care Team Providers Care Hemmer Automatic Name Role Phone Val Menchaca MD Primary Care Provider [phone] Rey Travis PharmD Unavailable [phone] Val Menchaca MD Primary Care Provider [phone] Rey Travis PharmD Unavailable [phone] Reason for Visit * Reason Comments Med Refill Encounter Details Date Type Department Care Team (Late Contact Info) Description 05/10/2023 Refill [facility] [address] [place] [address] [phone] Val Menchaca MD [address] [place] [address] [phone] Social History Tobacco Use Types Packs/Day Years [...] Department Care Team (Late Contact Info) Description 08/06/2025 1:30 PM EST Telemedicine [facility] [address] [place] [address] Rey Travis[place] [address] 08/10/2025 11:00 AM EST Office Visit [facility] [place] [address] Harley Botello MD [facility] [place] [address] documented as of this encounter Goals Goal [...] documented as of this encounter Care Teams Hemmer Automatic Relationship Specialty Start Date End Date Val Menchaca MD [facility] [place] [address] PCP - General Family Medicine 07/30/12 02/10/24 Val Menchaca MD [facility] [place] [address] PCP - General Family Medicine 05/12/24 Rey Travis, PharmD [facility] [place] [address] Pharmacist Internal Medicine 02/08/23 02/10/24 Rey Travis, [place] [address] Pharmacist Internal Medicine 02/01/25 documented as of this encounter
--- OUTSIDE RECORDS SUMMARY | 2025-07-13 08:50 | XMS_ITS | Encounter Summary ---
Author Organization [facility] Address [address] [place] [address] Care Team Providers Care Economics Lecturer Name Role Phone Yanely Wan LINDSEY Primary Care Provider [phone] Encounter Details Date Type Department Care Team (Late st Contact Info) Description 04/05/2023 / INTERIM [facility] [address] [place] [address] Luis Bran [address] [place] [address] Social History Tobacco Use Types Packs/Day Years [...] documented as of this encounter Care Teams Economics Lecturer Relationship Specialty Start Date End Date Yanely Wan FNP [address] [place] [address] PCP - General Internal Medicine 04/05/23 06/16/24 documented as of this encounter
--- OUTSIDE RECORDS SUMMARY | 2025-07-13 08:50 | XMS_ITS | Encounter Summary ---
Author Organization [employer] Address 75 [facility] 7t [place] [address] Care Team Providers Care Information Security Specialist Name Role Phone Val Menchaca MD Primary Care Provider Rey Travis PharmD Unavailable [phone] Reason for Visit * Reason Comments Med Refill Encounter Details Date Type Department Care Team (Late st Contact Info) Description 01/07/2025 Refill [facility] 230 [place], [place] [phone] Bella Mcdaniel DO [address] [place], [place] [phone] Social History Tobacco Use Types Packs/Day Years [...] Info) Description 08/06/2025 1:30 PM EST Telemedicine [facility] MEDICINE [address] [place] [address] Rey Travis PharmD [address] [place] [address] 08/10/2025 11:00 AM EST Office Visit [facility] MEDICINE [address] [place] [address] Harley Botello MD [address] [place] [address] documented as of this encounter Goals Goal [...] documented as of this encounter Care Teams Information Security Specialist Relationship Specialty Start Date End Date Val Menchaca MD [address] [place] [address] PCP - General Family Medicine 05/12/24 Rey Travis, Raymundo [address] [place] [address] Pharmacist Internal Medicine 02/01/25 documented as of this encounter
--- OUTSIDE RECORDS SUMMARY | 2025-07-13 08:50 | XMS_ITS | Encounter Summary ---
Author Organization [employer] Address 75 [facility] 7t [place] [address] Care Team Providers Care Production Manufacturing Worker Name Role Phone Val Menchaca MD Primary Care Provider [phone] Rey Travis PharmD Unavailable [phone] Encounter Details Date Type Department Care Team ([facility] st Contact Info) Description 04/30/2025 Orders Only [facility] MEDICINE 230 [place], [place] [phone] Val Menchaca MD [address] [place], [place] [phone] ASHLYN (acute kidney injury) ([facility]) (Primary Dx) Social History Tobacco [...] Info) Description 08/06/2025 1:30 PM EST Telemedicine [facility] MEDICINE [address] [place] [address] Rey Travis, PharmD [address] [place] [address] 08/10/2025 11:00 AM EST Office Visit [facility] MEDICINE [address] [place] [phone] Harley Botello MD [address] [place] [address] documented as of this encounter Goals Goal Patient Goal Type Associated Problems Recent Progress Patient-Stated? Author Blood Pressure < 140/90 Blood Pressure 150/86( 025 9:56 AM EDT) No Rey Travis, PharmD documented as of this encounter Visit Diagnoses Diagnosis ASHLYN (acute kidney injury)- Primary documented in this encounter Additional Health Concerns Assessment Noted Time PHQ-9 Depression Total Score: 4 06/30/20 24 10:37 AM EDT documented as of this encounter Care Teams Production Manufacturing Worker Relationship Specialty Start Date End Date Val Menchaca MD [address] [place] [address] PCP - General Family Medicine 05/12/24 Rey Travis, Raymundo [address] [place] [address] Pharmacist Internal Medicine 02/01/25 documented as of this encounter
--- OUTSIDE RECORDS SUMMARY | 2025-07-13 08:50 | XMS_ITS | Encounter Summary ---
Author Organization [employer] [facility] Address [address] [place] [address] 7t [place] [address] Care Team Providers Care Scientist Electronics Name Role Phone Val Menchaca MD Primary Care Provider [phone] Rey Travis PharmD Unavailable [phone] Val Menchaca MD Primary Care Provider [phone] Rey Travis PharmD Unavailable [phone] Reason for Visit * Reason Comments Med Refill Encounter Details Date Type Department Care Team (Late st Contact Info) Description 06/13/2023 Refill [facility] MED[facility]INE [address] [place], [place] [phone] Val Menchaca MD 230 [place], [place] [phone] Depressive disorder Social History Tobacco Use Types [...] Info) Description 08/06/2025 1:30 PM EST Telemedicine [facility] [place] [place] [address] Rey Travis, [place] [address] 08/10/2025 11:00 AM EST Office Visit [facility] [place] [place] [address] Harley Botello MD [facility] [place] [address] documented as of this encounter Goals Goal [...] documented as of this encounter Care Teams Scientist Electronics Relationship Specialty Start Date End Date Val Menchaca MD [facility] [address] PCP - General Family Medicine 07/30/12 02/10/24 Val Menchaca MD [facility] [address] PCP - General Family Medicine 05/12/24 Rey Travis, PharmD [facility] [address] Pharmacist Internal Medicine 02/08/23 02/10/24 Rey Travis, Raymundo [facility] [place] [address] Pharmacist Internal Medicine 02/01/25 documented as of this encounter
--- OUTSIDE RECORDS SUMMARY | 2025-07-13 08:50 | XMS_ITS | Clinical Summary ---
Author Organization [facility] Address [address] [place] [address] Care Team Providers Care Engineer Station Mainline Name Role Phone Unavailable Primary Care Provider [...] reported [place] Anaphylaxis High 04/08/2023 Ct reported [place] Anaphylaxis High 04/08/2023 Ct reported Medications topiramate [...] (NARCAN) 4 mg/actuation nasal spray Place 1 Patriot into the nostril(s) as needed for opioid [...] inhalerIndicatio ns:Moderate persistent asthma with status asthmaticus Inhale 1 Puff into the lungs 2 [...] mistIndications: Moderate persistent asthma with status asthmaticus Inhale 1 Puff into the lungs once daily 12 g 1 3 Active ibuprofen 400 mg tabletIndication s:Frequent headaches Take 1 Tablet by mouth 4 (four) times daily as needed for pain or headaches 30 Tablet 1 3 Active blood sugar diagnostic stripsIndication s:Type 2 diabetes mellitus with hyperglycemia, without long-term current use of insulin Check FBS once daily. FREESTYLE LITE Dx.11.65 100 Each 3 Active cetirizine (ZYRTEC) 10 mg tabletIndication s:Moderate persistent asthma with status asthmaticus Take 1 Tablet by mouth every morning 90 Tablet 1 3 Active metFORMIN (GLUCOPHAGE) 1,000 mg tabletIndication s:Type 2 diabetes mellitus with hyperglycemia, without long-term current use of insulin Take 1 Tablet by mouth 2 (two) times daily with a meal For diabetes 180 Tablet 1 3 Active pravastatin (PRAVACHOL) 80 mg tabletIndication s:Type 2 diabetes mellitus with hyperglycemia, without long-term current use of insulin Take 1 Tablet by mouth nightly at [...] hyperglycemia, without long-term current use of insulin INHALE 2 PUFFS EVERY 4 HOURS NEEDED SHORTNESS OF BREATH 18 g 1 4 Active Active Problems Problem Noted Date Diagnosed Date Bilateral cataracts 09/13/2023 Class 3 severe obesity due t o excess calories without serious comorbidity with body mass index (BMI) of 40.0 to 44.9 in adult 08/13/2023 Moderate persistent asthma with status asthmatic us 05/13/2023 Anxiety 05/13/2023 Type 2 diabetes mellitus wit h hyperglycemia, without long-term current use of insulin 05/13/2023 Major depressive disorder, single episode 2022 Essential (primary) hypertension 05/13/2023 Hx of gastric bypass 09/30/2013 Immunizations Immunization Administration Dates Next Due Flu, Multi Dose 0.5 ML 07/23/2017,06/19/2016 Flu, Preservative Free 06/19/2022,09/16/2019,05/2019 Hep A, adult 12/26/2010,02/23/2010,06/16/2008 Hep B, Adult/Adol ([id number]-CIIMN/RECOMBIVAX-ADULT) 06/02/2019,05/05/2019,12/26/2010,06/27,02/23/2010 INFLUENZA, SEASONAL, INJECTABLE 08/03/2014 PNEUMOCOCCAL POLYSACCHARIDE PPV23 (Pneumovax 23) 12/01/2016,09/28/2014,08/17/1994 [facility] Fund[facility] Flu Vaccine 06/10/2013 TDAP 12/20/2023,03/30/2014 [...] Screening 11/12/2024 11/12/2023 Hypertension Screening (#1) 03/10/2025 Chc-VEQON-18 ( season) 2025 07/24/2022, 11/21/2021, 01/13/2021, Additional history exists Imm-Influenza (#1) 2025 06/19/2022, 1 11/17/2018, 10/08/2018, Additional history exists Diabetes Screening 10/03/2026 10/03/2023, 0 10/03/2023, 05/20/2023, Additional history exists Imm-DTaP/Tdap/Td (3 - Td or Tdap) 12/19/2033 12/20/2023, 03/30/2014, 05/11/2012, Additional history exists Imm-Hepatitis B Completed 06/02/2019, 08/0 02/2019, 12/26/2010, Additional history exists HIV Screening Completed 05/02/2023 Hepatitis C Screening Completed 05/02/2023 Imm-Zoster, Recombinant Completed 12/20/2023, 05/03 Procedures Procedure Name Priority Date/Time Associated Diagnosis Comments COMPREHENSIVE METABOLIC PANEL Routine 10/03/2023 8:43 AM EST Screening due Class 3 severe obesity due to excess calories without serious comorbidity with body mass index (BMI) of 40.0 to 44.9 in adult ([facility]) LIPID PANEL Routine 10/03/2023 8:43 AM EST Screening due Class 3 severe obesity due to excess calories without serious comorbidity with body mass index (BMI) of 40.0 to 44.9 in adult ([facility]) HIV 1/2 AG & AB W/RFLX (4TH GEN) Routine 05/02/2023 1:57 PM EDT Opioid use disorder HEPATITIS C AB W/RFLX HCV RNA, QT, RT PCR Routine 05/02/2023 1:57 PM EDT Opioid use disorder from Last 3 Months or Most Recently Relevant to Health Maintenance Results * (ABNORMAL) LIPID PANEL (10/03/2023 8:43 AM EST) CHOLESTEROL, TOTAL 204(H) <200 mg/dL [facility] HDL CHOLESTEROL 48 > OR = 40 mg/dL [employer] TRIGLYCERIDES 139 <150 mg/dL [employer] [facility] LDL-CHOLESTEROL 131(H) 99 mg/dL (calc) [facility] Comment: Reference range: <100 Desirable range <100 mg/dL for primary prevention; <70 mg/dL for patients with CHD or diabetic patients with > or = 2 CHD risk factors. LDL-C is now calculated using the Frederic calculation, which is a validated novel method providing better accuracy than the Friedewald equation in the estimation of LDL-C. Frantz LUTHER et al. JOSIAH. 2013;310(19): 2812-6666 (http://education.[employer].Corrigo/faq/MWJ583) CHOL/HDLC RATIO 4.3 <5.0 (calc) [facility] NON-HDL CHOLESTEROL 156(H) <130 mg/dL (calc) [facility] Comment: For patients with diabetes plus 1 major ASCVD risk factor, treating to a non-HDL-C goal of <100 mg/dL (LDL-C of <70 mg/dL) is considered a therapeutic option. Blood Blood / Unknown 10/03/2023 8 :43 AM EST 10/03/2023 8:44 AM EST Narrative [facility] [employer] [facility] - 10/05/2023 6:14 PM EST FASTING:YES Apryl Lawrence PA-C LAB - BLOOD DRAW Final Resu lt [facility] [address] [place] [address], [facility] [address] [address] * (ABNORMAL) COMPREHENSIVE METABOLIC PANEL (10/03/2023 8:43 AM EST) GLUCOSE 129(H) 65 - 99 mg/dL [facility] Comment: Fasting reference interval For someone without known diabetes, a glucose value >125 mg/dL indicates that they may have diabetes and this should be confirmed with a follow-up test. UREA NITROGEN (BUN) 11 7 - 25 mg/dL [facility] CREATININE (blood) 0.75 0.70 - 1.30 mg/dL [facility] EGFR 106 > OR = 60 mL/min/1. 73m2 [facility] BUN/CREATININE RATIO SEE NOTE: [facility] Comment: Not Reported: BUN and Creatinine are within reference range. SODIUM 137 135 - 146 mmol/L [facility] POTASSIUM 4.3 3.5 - 5.3 mmol/L [facility] CHLORIDE 102 98 - 110 mmol/L [employer] CARBON DIOXIDE 24 20 - 32 mmol/L [facility] CALCIUM 8.7 8.6 - 10.3 mg/dL [facility] PROTEIN, TOTAL 6.6 6.1 - 8.1 g/dL [facility] ALBUMIN 4.3 3.6 - 5.1 g/dL [facility] GLOBULIN 2.3 1.9 - 3.7 g/dL (calc) [facility] ALBUMIN/GLOBULI N RATIO 1.9 1.0 - 2.5 (calc) [facility] BILIRUBIN, TOTAL 0.6 0.2 - 1.2 mg/dL [facility] ALKALINE PHOSPHATASE 84 35 - 144 U/L [facility] AST 19 10 - 35 U/L [facility] ALT 20 9 - 46 U/L [facility] Blood Blood / Unknown 10/03/2023 8 :43 AM EST 10/03/2023 8:44 AM EST Narrative [facility] - 10/05/2023 6:14 PM EST FASTING:YES Apryl Lawrence PA-C LAB - BLOOD DRAW Edited Res ult - Final Performing Organization Address City/[facility]/ZIP Co de Phone Number [facility] [address] [address], [facility] [address] [address] * HEPATITIS C AB W/RFLX HCV RNA, QT, RT PCR (05/02/2023 1:57 PM EDT) HEPATITIS C ANTIBODY NON-REACT MANJULA NON-REACT MANJULA [facility] Comment: HCV antibody was non-reactive. There is no laboratory evidence of HCV infection. In most cases, no further action is required. However, if recent HCV exposure is suspected, a test for HCV RNA (test code 28865) is suggested. For additional information please refer to http://education.[employer]INE [employer]/faq/HDT22d7 (This link is being provided for informational/ educational purposes only.) Blood Blood / Unknown 05/02/2023 1 :57 PM EDT 05/02/2023 1:58 PM EDT Narrative [facility] [employer] [facility] - 05/10/2023 3:05 PM EDT FASTING:NO PATIENT UNABLE TO VOID; ADVISED TO RETURN FOR COLLECTION. Yanely PORTILLO LAB - BLOOD DRAW Edited Result - Final Performing Organization Address City/[facility]/ZIP Co de Phone Number [facility] [address] [address], [facility] [address] [place] [address] * HIV 1/2 AG & AB W/RFLX (4TH GEN) (05/02/2023 1:57 PM EDT) HIV AG/AB, 4TH GEN NON-REAC TIVE NON-REAC TIVE [facility] Comment: HIV-1 antigen and HIV-1/HIV-2 antibodies were [...] purpose. For additional information please refer to http://education.[employer]/faq/WMA999 (This link is being provided for informational/ educational purposes only.) The performance of this assay has not been clinically validated in patients less than 2 years old. Blood Blood / Unknown 05/02/2023 1 :57 PM EDT 05/02/2023 1:58 PM EDT Narrative [facility] - 05/10/2023 3:05 PM EDT FASTING:NO PATIENT UNABLE TO VOID; ADVISED TO RETURN FOR COLLECTION. Yanely Wan [facility] LAB - BLOOD DRAW Final Result [facility] [address] [address], [employer] [facility] [address] [place] [address] from Last 3 Months or Most Recently Relevant to Health Maintenance Insurance [facility] [address] [employer]
--- OUTSIDE RECORDS SUMMARY | 2025-07-13 08:50 | XMS_ITS | Encounter Summary ---
Author Organization [employer] Address 75 [facility] 7t [place] [address] Care Team Providers Care Airport Shuttle Driver Name Role Phone Val Menchaca MD Primary Care Provider [phone] Rey Travis PharmD Unavailable [phone] Reason for Visit * Reason Comments Med Refill Encounter Details Date Type Department Care Team (Late st Contact Info) Description 03/21/2025 Refill [facility] MED[facility]INE 230 [place], [place] [phone] Val Menchaca MD 230 [place], [place] [phone] Social History Tobacco Use Types Packs/Day Years [...] the past 12 months, has t he [employer], gas, oil or water [employer] threatened to shut off services in your [...] Info) Description 08/06/2025 1:30 PM EST Telemedicine [facility] [address] [place] [address] Rey Travis, PharmD [address] [place] [address] 08/10/2025 11:00 AM EST Office Visit [facility] [address] [place] [address] Harley Botello MD [address] [place] [address] documented as of this encounter Goals Goal [...] documented as of this encounter Care Teams Airport Shuttle Driver Relationship Specialty Start Date End Date Val Menchaca MD 230 [place] [address] PCP - General Family Medicine 05/12/24 Rey Travis, HuongD 230 [place] [address] Pharmacist Internal Medicine 02/01/25 documented as of this encounter
--- OUTSIDE RECORDS SUMMARY | 2025-07-13 08:50 | XMS_ITS | Encounter Summary ---
Author Organization [employer] Address [address] [facility] 7t [place] [address] Care Team Providers Care Teenage Babysitter Name Role Phone Val Menchaca MD Primary Care Provider [phone] Rey Travis PharmD Unavailable [phone] Reason for Visit * Reason Comments Med Refill Encounter Details Date Type Department Care Team (Late st Contact Info) Description 06/08/2025 Refill [facility] MEDICINE 230 [place], [place] [phone] Harley Botello MD 230 [place] [address] Uncomplicated opioid dependence ([facility]) Social History Tobacco Use Types Packs/Day Years [...] Info) Description 08/06/2025 1:30 PM EST Telemedicine [facility] [address] [place] [address] Rey Travis, PharmD [address] [place] [address] 08/10/2025 11:00 AM EST Office Visit [facility] [address] [place] [address] Harley Botello MD [address] [place] [address] documented as of this encounter Goals Goal Patient Goal Type Associated Problems Recent Progress Patient-Stated? Author Blood Pressure < 140/90 Blood Pressure 150/86( 025 9:56 AM EDT) No Rey Travis, PharmD documented as of this encounter Visit Diagnoses Diagnosis Uncomplicated opioid dependence (CMS/HCC) (HCC) documented in this encounter Additional Health Concerns Assessment Noted Time PHQ-9 Depression Total Score: 17 025 9:38 AM EDT documented as of this encounter Care Teams Teenage Babysitter Relationship Specialty Start Date End Date Val Menchaca MD 230 [place] [address] PCP - General Family Medicine 05/12/24 Rey Travis, HuongD 230 [place] [address] Pharmacist Internal Medicine 02/01/25 documented as of this encounter
--- OUTSIDE RECORDS SUMMARY | 2025-07-13 08:50 | XMS_ITS | Encounter Summary ---
Author Organization [employer] [facility] Address [address] [place] [address] 7t [place] [address] Care Team Providers Care Reservations And Ticketing Agent Name Role Phone Val Menchaca MD Primary Care Provider [phone] Rey Travis PharmD Unavailable [phone] Val Menchaca MD Primary Care Provider [phone] Rey Travis PharmD Unavailable [phone] Reason for Visit * Reason Comments Med Refill Encounter Details Date Type Department Care Team (Late st Contact Info) Description 06/27/2023 Refill [facility] MEDICINE 230 [place], [place] [phone] Val Menchaca MD 230 [place], [place] [phone] Depressive disorder Social History Tobacco Use Types [...] 08/06/2025 1:30 PM EST Telemedicine [facility] [address] Rey Travis, [place] [address] 08/10/2025 11:00 AM EST Office Visit [facility] [place] [address] Harley Botello MD [facility] [place] [address] documented as of this encounter Goals Goal [...] documented as of this encounter Care Teams Reservations And Ticketing Agent Relationship Specialty Start Date End Date Val Menchaca MD [facility] [place] [address] PCP - General Family Medicine 07/30/12 02/10/24 Val Menchaca MD [facility] [place] [address] PCP - General Family Medicine 05/12/24 Rey Travis, PharmD [facility] [place] [address] Pharmacist Internal Medicine 02/08/23 02/10/24 Rey Travis, Raymundo [facility] [place] [address] Pharmacist Internal Medicine 02/01/25 documented as of this encounter
--- OUTSIDE RECORDS SUMMARY | 2025-07-13 08:50 | XMS_ITS | Encounter Summary ---
Author Organization [employer] [facility] Address [address] [place] [address] 7t [place] [address] Care Team Providers Care Manager Wound Name Role Phone Val Menchaca MD Primary Care Provider [phone] Rey Travis PharmD Unavailable [phone] Val Menchaca MD Primary Care Provider [phone] Rey Travis PharmD Unavailable [phone] Reason for Visit * Reason Comments Med Refill Encounter Details Date Type Department Care Team (Late st Contact Info) Description 05/07/2023 Refill [facility] MEDICINE 230 [place], [place] [phone] Val Menchaca MD 230 [place], [place] [phone] Type 2 diabetes mellitus without complications (CMS/HCC) [...] Info) Description 08/06/2025 1:30 PM EST Telemedicine [facility] [place] [address] Rey Travis, [place] [address] 08/10/2025 11:00 AM EST Office Visit [facility] [place] [address] [place] [address] documented as of this encounter Goals Goal Patient Goal Type Associated Problems Recent Progress Patient-Stated? Author Blood Pressure < 140/90 Blood Pressure 150/86( 025 9:56 AM EDT) No Rey Travis, Raymundo documented as of this encounter Visit Diagnoses Diagnosis Type 2 diabetes mellitus without complications (HCC) documented in this encounter Additional Health Concerns Assessment Noted Time PHQ-9 Depression Total Score: 0 11/12/19 23 11:22 AM EST documented as of this encounter Care Teams Manager Wound Relationship Specialty Start Date End [place] [address] PCP - General Family Medicine 07/30/12 02/10/24 [place] [address] PCP - General Family Medicine 05/12/24 Rey Travis, [place] [address] Pharmacist Internal Medicine 02/08/23 02/10/24 Rey Travis[place] [address] Pharmacist Internal Medicine 02/01/25 documented as of this encounter
--- OUTSIDE RECORDS SUMMARY | 2025-07-13 08:50 | XMS_ITS | Encounter Summary ---
Author Organization [employer] Address 75 [facility] 7t [place] [address] Care Team Providers Care Teacher Of Gifted Students Name Role Phone Val Menchaca MD Primary Care Provider [phone] Rey Travis PharmD Unavailable [phone] Reason for Referral * Consultation (Routine) - Closed Specialty Diagnoses / Procedures Referred By Contac t Referred To Contact Physical Therapy Diagnoses Chronic right shoulder pain Val Menchaca MD 230 [place] [address] Phone: tel: fax: [facility] [address] Phone: tel: fax: Referral ID Status Reason Start Date Expiration Date V isits Requested Visits Authorized [id number] Closed Specialty Services Required 10/29/2024 10/29/2025 20 20 Encounter Details Date Type Department Care Team (Late st Contact Info) Description 10/28/2024 Orders Only [facility] MEDICINE 230 [place], [place] [phone] Val Menchaca MD 230 [place], [place] [phone] Chronic right shoulder pain (Primary Dx); Uncomplicated [...] Info) Description 08/06/2025 1:30 PM EST Telemedicine [facility] [address] [place] [address] [phone] Rey Travis, Raymundo 230 [place] [address] 08/10/2025 11:00 AM EST Office Visit [facility] 230 [place] [address] Harley Botello MD 230 [place], [place] [phone] Scheduled Referrals Name Type Priority Associated Diagnoses Orde r Schedule Referral to Physical Therapy Outpatient Referral Routine Chronic right shoulder pain Expected: 10/28/2024 (Approximate), Expires: 10/28/2025 documented as of this encounter Goals Goal Patient Goal Type Associated Problems Recent Progress Patient-Stated? Author Blood Pressure < 140/90 Blood Pressure 150/86( 025 9:56 AM EDT) No Rey Travis, HuongD documented as of this encounter Visit Diagnoses Diagnosis Chronic right shoulder pain- Primary Pain in joint, shoulder region Uncomplicated opioid dependence (CMS/HCC) (HCC) documented in this encounter Additional Health Concerns Assessment Noted Time PHQ-9 Depression Total Score: 4 06/30/20 24 10:37 AM EDT documented as of this encounter Care Teams Teacher Of Gifted Students Relationship Specialty Start Date End Date Val Menchaca MD [address] [place] [address] PCP - General Family Medicine 05/12/24 Rey Travis PharmD [address] [place] [address] [phone] Pharmacist Internal Medicine 02/01/25 documented as of this encounter
--- OUTSIDE RECORDS SUMMARY | 2025-07-13 08:50 | XMS_ITS | Encounter Summary ---
Author Organization [employer] Address 75 [facility] 7t [place] [address] Care Team Providers Care Radio Division Lieutenant Name Role Phone Val Menchaca MD Primary Care Provider [phone] Rey Travis PharmD Unavailable [phone] Encounter Details Date Type Department Care Team ([facility] st Contact Info) Description 03/16/2025 Orders Only [facility] 230 [place], [place] [phone] Provider, MD Annette Social History Tobacco Use [...] Info) Description 08/06/2025 1:30 PM EST Telemedicine [address] [address] Rey Travis PharmD [address] [place] [address] 08/10/2025 11:00 AM EST Office Visit [address] [address] Harley Botello MD [address] [place] [address] documented as of this encounter Goals Goal [...] documented as of this encounter Care Teams Radio Division Lieutenant Relationship Specialty Start Date End Date Val Menchaca MD 230 [place] [address] PCP - General Family Medicine 05/12/24 Rey Travis, HuongD 230 [place] [address] Pharmacist Internal Medicine 02/01/25 documented as of this encounter
--- OUTSIDE RECORDS SUMMARY | 2025-07-13 08:50 | XMS_ITS | Encounter Summary ---
Author Organization [employer] [facility] Address [address] [place] [address] 7t [place] [address] Care Team Providers Care Network Support Name Role Phone Val Menchaca MD Primary Care Provider [phone] Rey Travis PharmD Unavailable [phone] Val Menchaca MD Primary Care Provider [phone] Rey Travis PharmD Unavailable [phone] Reason for Visit * Reason Comments Med Refill Encounter Details Date Type Department Care Team (Late st Contact Info) Description 05/10/2023 Refill [facility] MEDICINE 230 [place], [place] [phone] Val Menchaca MD 230 [place], [place] [phone] Type 2 diabetes mellitus without complications (CMS/HCC) [...] Info) Description 08/06/2025 1:30 PM EST Telemedicine [facility] [place] [place] [address] Rey Travis, [place] [address] 08/10/2025 11:00 AM EST Office Visit [facility] [place] [address] [place] [address] documented as of this encounter Goals Goal [...] documented as of this encounter Care Teams Network Support Relationship Specialty Start Date End Date [place] [address] PCP - General Family Medicine 07/30/12 02/10/24 [place] [address] PCP - General Family Medicine 05/12/24 Rey Travis, [place] [address] Pharmacist Internal Medicine 02/08/23 02/10/24 Rey Travis, [place] [address] Pharmacist Internal Medicine 02/01/25 documented as of this encounter
--- OUTSIDE RECORDS SUMMARY | 2025-07-13 08:50 | XMS_ITS | Encounter Summary ---
Author Organization [facility] Address [address] [place] [address] Care Team Providers Care Manager Roofing Name Role Phone Yanely Wan LINDSEY Primary Care Provider [phone] Encounter Details Date Type Department Care Team (Late st Contact Info) Description 04/18/2023 / TELEPHONE [facility] [address] [place] [address] Luis Bran [address] [place] [address] Social History Tobacco Use Types Packs/Day Years [...] as of this encounter Care Teams Manager Roofing Relationship Specialty Start Date End Date Yanely Wan FNP [address] [place] [address] PCP - General Internal Medicine 04/05/23 06/16/24 documented as of this encounter
--- OUTSIDE RECORDS SUMMARY | 2025-07-13 08:50 | XMS_ITS ---
Author Organization [facility] Address [address] [place] [address] Care Team Providers Care Technical Administrative Assistant Name Role Phone Unavailable Primary Care Provider Lydia e SA38 Asthma Program Status:Enrolled (Active) Start date:11/12/2023 Enrollment date:11/12/2023 Case Team Name Relationship Phone Deshaun Bravo PharmD(Responsible Staff) [phone] Continued Care and Services Coordination
--- OUTSIDE RECORDS SUMMARY | 2025-07-13 08:50 | XMS_ITS | Encounter Summary ---
Author Organization [employer] Address 75 [facility] 7t [place] [address] Care Team Providers Care Coil Repair Technician Name Role Phone Val Menchaca MD Primary Care Provider [phone] Rey Travis PharmD Unavailable [phone] Reason for Visit * Reason Comments Med Refill Encounter Details Date Type Department Care Team ([facility] st Contact Info) Description 02/21/2024 Refill [facility] MEDICINE 230 [place], [place] [phone] Val Menchaca MD 230 [place], [place] [phone] Social History Tobacco Use Types Packs/Day Years [...] Info) Description 08/06/2025 1:30 PM EST Telemedicine [facility] MEDICINE [address] [place] [address] Rey Travis, PharmD [address] [place] [address] 08/10/2025 11:00 AM EST Office Visit [facility] MEDICINE [address] [place] [address] Harley Botello MD [address] [place] [address] documented as of this encounter Goals Goal [...] documented as of this encounter Care Teams Coil Repair Technician Relationship Specialty Start Date End Date Val Menchaca MD [address] [place] [address] PCP - General Family Medicine 05/12/24 Rey Travis, PharmD [address] [place] [address] Pharmacist Internal Medicine 02/01/25 documented as of this encounter
--- OUTSIDE RECORDS SUMMARY | 2025-07-13 08:50 | XMS_ITS | Encounter Summary ---
Author Organization [employer] Address [address] [facility] 7t [place] [address] Care Team Providers Care Insecticide Expert Name Role Phone Val Menchaca MD Primary Care Provider Rey Travis PharmD Unavailable [phone] Reason for Visit * Reason Comments Med Refill Encounter Details Date Type Department Care Team ([facility] st Contact Info) Description 03/17/2024 Refill [facility] MEDICINE 230 [place], [place] [phone] Val Menchaca MD 230 [place] [address] Social History Tobacco Use Types Packs/Day Years [...] 03/17/2024 3:50 PM EDT Gema Thacker Trouble falling or staying asleep, or sleeping too much Nearly every day 03/17/2024 3:50 PM EDT Gema Thacker Feeling tired or having little energy More [...] 08/06/2025 1:30 PM EST Telemedicine [facility] MEDICINE [address] [place] [address] Rey Travis, PharmD [address] [place] [address] 08/10/2025 11:00 AM EST Office Visit [facility] MEDICINE [address] [place] [address] Harley Botello MD [address] [place] [address] documented as of this encounter Goals Goal [...] documented as of this encounter Care Teams Insecticide Expert Relationship Specialty Start Date End Date Val Menchaca MD 230 [place] [address] PCP - General Family Medicine 05/12/24 Rey Travis, PharmD 230 [place] [address] Pharmacist Internal Medicine 02/01/25 documented as of this encounter
[2025-07-13 11:35] LABS: MANUAL DIFF FLAG NO
[2025-07-13 12:08] LABS: Hematocrit 38.9 % (42.0-52.0); Hemoglobin 12.5 g/dl (14.0-18.0); Imm Gran Abs Auto 0.03 X10*3/uL (0.00-0.03); Imm Gran Pct Auto 0.4 % (0.0-0.4); Lymphocytes Absolute Auto 2.1 X10*3/uL (1.2-4.9); Mean Corpuscular HGB Conc 32.1 g/dl (31.0-36.0); Mean Corpuscular Hemoglobin 28.4 pg (27.0-33.0); Mean Corpuscular Volume 88.4 fL (80.0-98.0); NRBC Abs Auto 0.000 X10*3/uL (0.0-0.012); NRBC Pct Auto 0.0 /100WBC (0.0-0.2); Platelet Count 116 X10*3/uL (160-400); Red Blood Count 4.40 X10*6/uL (4.60-5.80); Reticulocytes Absolute 0.066 X10*6/uL (0.026-0.095); White Blood Count 7.3 X10*3/uL (4.8-10.8)
[2025-07-13 12:20] LABS: Microalbum/Creatinine Ratio Ur 2.7 ug/mg cr (<30)
[2025-07-13 12:34] LABS: Alanine Aminotransferase 22 U/L (0-40); Albumin Level 4.1 g/dL (3.5-5.0); Alkaline Phosphatase 86 U/L (39-117); Anion Gap 12 (12-20); Aspartate Amino Transferase 29 U/L (5-37); Blood Urea Nitrogen 11 mg/dL (9-16); Calcium 9.0 mg/dL (8.4-10.2); Carbon Dioxide 26 mmol/L (22-29); Chloride 107 mmol/L (96-108); Cholesterol 168 mg/dL (<200); Estimated Glomerular Filt Rate > 60; HDL Cholesterol 50 mg/dL (>40); Iron 56 mcg/dL (45-160); Percent Iron Saturation 18 % (15-50); Potassium 3.8 mmol/L (3.3-5.1); Sodium 141 mmol/L (135-145); Total Iron Binding Capacity 315 mcg/dL (228-428); Total Protein 6.9 g/dL (6.5-8.0); Triglycerides 82 mg/dL (<150); Unsaturated Iron Binding 259 ug/dL
[2025-07-13 12:37] LABS: Reflex LDLD? No
[2025-07-13 12:48] LABS: Ferritin 56 ng/mL (20-250)
[2025-07-13 12:49] LABS: Folate 6.5 ng/mL (> or = 4.0); Vitamin B12 160 pg/mL (200-900)
== END 2025-07-13 08:28 | disposition home or self-care (01) ==
LOC: HO.HHCL 08:27
PROVIDERS: PCP Family Medicine; Visit Provider Family Medicine
DX: I10 Essential (primary) hypertension (principal); E11.65 Type 2 diabetes mellitus with hyperglycemia; D51.8 Other vitamin B12 deficiency anemias; E78.5 Hyperlipidemia, unspecified; D50.9 Iron deficiency anemia, unspecified
CPT/HCPCS: 36415; 80053; 80061; 82043; 82570; 82607; 82728; 82746; 83540; 85025; 85045